=== PATIENT | male | born 1960 | race Caucasian/White ===

== ENCOUNTER 2016-06-04 21:08 | Inpatient (IN) | payer MEDICARE, OTHER ==
[~2016-06-04] VITALS: Ht 177.8 cm; Wt 118.9 kg
[2016-06-04] MEDS: IV NORMAL SALINE 1000ML BAG 1,000 ML IV SCH ×4 (01:30→23:53)
[2016-06-04] MEDS ORDERED: MORPHINE SULFATE 4 MG/ML DISP.SYRIN. IV/SQ PRN (21:45)
[2016-06-04] MEDS ORDERED: ACETAMINOPHEN 325 MG TABLET. PO ONE (21:45)
[2016-06-04] MEDS ORDERED: ONDANSETRON PF 4 MG/2 ML VIAL. IV ONE (21:45)
--- NOTE | 2016-06-04 22:18 | RAD ---
PROCEDURE Abdomen and pelvis CT without contrast. HISTORY Vomiting and fever. TECHNIQUE Computed tomographic images the and pelvis were obtained without contrast. One or more of the following individualized dose reduction techniques were utilized for this examination: 1. Automated exposure control; 2. Adjustment of the mA and/or kV according to patient size; 3. Use of iterative reconstruction technique. COMPARISON 10/12/2012 FINDINGS Evaluation of the lower thorax demonstrates left basilar atelectasis or scarring. There is no infiltrate or effusion. No focal hepatic lesion is seen. The gallbladder, pancreas, spleen and adrenal glands are unremarkable. There are several soft tissue nodules within the right renal fossa, the largest of which measures 1.3 cm. There is a 2.6 cm exophytic lesion within the lower pole of the left kidney, increased compared to the prior study. There is stable slight left perinephric stranding. There is also mild stranding within the root of the mesenteric, a nonspecific finding. The appendix is unremarkable. No abnormally thickened or dilated loop of bowel is seen. There is no suspicious osseous lesion. IMPRESSION 1. No acute abdominal or pelvic finding. 2. Stable prominent left kidney with slight perinephric stranding. There has been interval increase in a 2.6 cm exophytic lesion within the lower pole of the left kidney, the attenuation which is greater than simple fluid. This may be a complex cyst or solid lesion. Renal protocol CT or MRI or renal sonography is recommended for characterization. 3. Stable small soft tissue nodules within the right renal fossa, likely representing lymph nodes rather than hypoplastic renal parenchyma. The stability favors benignity. Electronically signed by: Nelly Tovar (Jun 04, 2016 22:17:31)
[2016-06-04 22:22] LABS: OBC FLU VALID
[2016-06-04 22:39] LABS: BASO # 0.1 x10^3/uL (0.0-0.2); BASO % 1 % (0-3); EOS % 1 % (0-3); HEMATOCRIT 33.8 % (39.0-53.0); HEMOGLOBIN 11.4 g/dL (13.0-17.5); LYMPH # 0.7 x10^3/uL (1.0-4.8); LYMPH % 5 % (24-48); MEAN CORPUSCULAR HEMOGLOBIN 31 pg (25-35); MEAN CORPUSCULAR HGB CONC 34 g/dL (31-37); MEAN CORPUSCULAR VOLUME 91 fL (79-100); MONO % 4 % (0-9); NEUT % 90 % (31-73); PLATELET COUNT 156 x10^3/uL (140-400); RED BLOOD COUNT 3.72 x10^6/uL (4.30-5.70); RED CELL DISTRIBUTION WIDTH 12.9 % (11.5-14.5)
--- NOTE | 2016-06-04 22:39 | PHYS DOC ---
Past Medical History Past Medical History: Arthritis, Diabetes-Type II, DVT, High Cholesterol, Hypertension Additional Past Medical Histor: GOUT,ONLY HAS 1 KIDNEY Past Surgical History: Knee Replacement Additional Information: nonsmoker Alcohol Use: None Drug Use: None Adult General Chief Complaint Chief Complaint: FLU SYMPTOM HPI HPI Patient is a 55 year old male who presents with fever and chills starting at 1800 tonight. He states that his temperature was 100.4F at home. He has not taken any antipyretic medication tonight. He has vomited 2-3 times and complains of periumbilical abdominal pain with urinary frequency. He has a productive cough, nasal congestion, and sore throat as well. He denies diarrhea , shortness of breath, or dysuria. His is currently hospitalized for chronic diarrhea. He denies any other known sick contacts. His PCP is Dr. Dheeraj Al. Review of Systems Review of Systems Constitutional: Reports fever and chills. Eyes: Denies change in visual acuity, redness, or eye pain. [] HENT: Denies ear pain. Reports nasal congestion and sore throat. Respiratory: Denies shortness of breath. Reports productive cough. Cardiovascular: Denies chest pain, palpitations or edema. [] GI: Denies bloody stools or diarrhea. Reports nausea, vomiting, and periumbilical pain. : Denies dysuria, hematuria. Reports urinary frequency. Musculoskeletal: Denies back pain or joint pain. [] Integument: Denies rash or skin lesions. [] Neurologic: Denies headache, focal weakness or sensory changes. [] Endocrine: Denies polyuria or polydipsia. [] Psych: Denies anxiety or depression. [] All systems reviewed and negative unless otherwise stated in the HPI. Current Medications Current Medications Current Medications Medications (Trade) Dose Ordered Sig/Bereket Start Time Stop Time Status Last Admin Dose Admin Acetaminophen (Tylenol) 650 mg 1X ONCE 06/04/16 21:45 06/04/16 21:46 DC 06/04/16 22:07 650 MG Morphine Sulfate 4 mg PRN Q15MIN PRN 06/04/16 21:45 06/05/16 21:44 06/04/16 22:07 4 MG Ondansetron HCl (Zofran) 4 mg 1X ONCE 06/04/16 21:45 06/04/16 21:46 DC 06/04/16 22:07 4 MG Sodium Chloride (Iv Sodium Chloride 0.9% 1000ml Bag) 1,000 ml @ 3,510 mls/hr Q18M 06/04/16 21:38 06/04/16 22:38 DC 06/04/16 23:53 3,510 MLS/HR Allergies Allergies Allergies Coded Allergies Type Severity Reaction Last Updated Verified allopurinol Allergy Severe SEVERE FEVER 06/04/16 Yes Zqxqlik-Rtv-Wlw Reductase Inhibitor Allergy Intermediate HIVES 06/04/16 Yes influenza virus vaccine, specific Allergy Intermediate Rash 06/04/16 No pneumococcal vaccine Allergy Intermediate Rash 06/04/16 No Physical Exam Physical Exam Constitutional: Well developed, well nourished, no acute distress. The patient is shivering with chills. HENT: Normocephalic, atraumatic, bilateral external ears normal, oropharynx moist, no oral exudates, nose normal. Bilateral TMs without erythema or bulging. There is no posterior pharyngeal erythema or tonsillar edema. Eyes: PERRLA, EOMI, conjunctiva normal, no discharge. [] Neck: Normal range of motion, no tenderness, supple, no stridor. No nuchal rigidity or meningeal signs. Cardiovascular: Tachycardia, regular, no murmur. Lungs & Thorax: Bilateral breath sounds clear to auscultation without wheezes, rales, or rhonchi. Abdomen: Bowel sounds normal, soft, periumbilical tenderness, no masses, no pulsatile masses. [] Skin: Warm, dry, no erythema, no rash. Grade 2 diabetic foot ulcers on the right first, second, and third toes as well as the left medial malleolus. Back: No tenderness, no CVA tenderness. [] Extremities: No tenderness, no cyanosis, no clubbing, ROM intact, no edema. 2+ pedal pulses bilaterally. Neurologic: Alert and oriented X 3, normal motor function, normal sensory function, no focal deficits noted. [] Psychologic: Affect normal, judgement normal, mood normal. [] Current Patient Data Vital Signs Vital Signs Date Time Temp Pulse Resp B/P Pulse Ox O2 Delivery O2 Flow Rate FiO2 06/04/16 23:27 118 151/63 96 Room Air 06/04/16 22:07 20 06/04/16 21:13 101.7 101.7 Lab Values Laboratory Tests Test 06/04/16 21:20 4/20/17 22:25 Influenza Type A Antigen Negative (NEGATIVE) Influenza Type B Antigen Negative (NEGATIVE) White Blood Count 15.0x10^3/uL (4.0-11.0) H Red Blood Count 3.72x10^6/uL (4.30-5.70) L Hemoglobin 11.4g/dL (13.0-17.5) L Hematocrit 33.8% (39.0-53.0) L Mean Corpuscular Volume 91fL (79-100) Mean Corpuscular Hemoglobin 31pg (25-35) Mean Corpuscular Hemoglobin Concent 34g/dL (31-37) Red Cell Distribution Width 12.9% (11.5-14.5) Platelet Count 156x10^3/uL (140-400) Neutrophils (%) (Auto) 90% (31-73) H Lymphocytes (%) (Auto) 5% (24-48) L Monocytes (%) (Auto) 4% (0-9) Eosinophils (%) (Auto) 1% (0-3) Basophils (%) (Auto) 1% (0-3) Neutrophils # (Auto) 13.5x10^3uL (1.8-7.7) H Lymphocytes # (Auto) 0.7x10^3/uL (1.0-4.8) L Monocytes # (Auto) 0.5x10^3/uL (0.0-1.1) Eosinophils # (Auto) 0.2x10^3/uL (0.0-0.7) Basophils # (Auto) 0.1x10^3/uL (0.0-0.2) Segmented Neutrophils % 79% (35-66) H Band Neutrophils % 14% (0-9) H Lymphocytes % 5% (24-48) L Monocytes % 1% (0-10) Eosinophils % 1% (0-5) Platelet Estimate Adequate (ADEQUATE) Sodium Level 129mmol/L (136-145) L Potassium Level 4.5mmol/L (3.5-5.1) Chloride Level 97mmol/L (98-107) L Carbon Dioxide Level 23mmol/L (21-32) Anion Gap 9 (6-14) Blood Urea Nitrogen 32mg/dL (8-26) H Creatinine 2.2mg/dL (0.7-1.3) H Estimated GFR (Cockcroft-Gault) 31.0 BUN/Creatinine Ratio 15 (6-20) Glucose Level 577mg/dL (70-99) *H Lactic Acid Level 1.9mmol/L (0.4-2.0) Calcium Level 9.1mg/dL (8.5-10.1) Total Bilirubin 0.6mg/dL (0.2-1.0) Aspartate Amino Transferase (AST) 15U/L (15-37) Alanine Aminotransferase (ALT) 27U/L (16-63) Alkaline Phosphatase 78U/L (46-116) Total Protein 7.0g/dL (6.4-8.2) Albumin 2.8g/dL (3.4-5.0) L Albumin/Globulin Ratio 0.7 (1.0-1.7) L Lipase 701U/L (73-393) H Laboratory Tests 06/04/16 22:25 Laboratory Tests 06/04/16 22:25 EKG EKG [] Radiology/Procedures Radiology/Procedures REASON: periumbilical pain, n/v, fever PROCEDURE: CT ABDOMEN PELVIS WO CONTRAST PROCEDURE Abdomen and pelvis CT without contrast. HISTORY COMPARISON 10/12/2012 FINDINGS Evaluation of the lower thorax demonstrates left basilar atelectasis or scarring. There is no infiltrate or effusion. No focal hepatic lesion is seen. The gallbladder, pancreas, spleen and adrenal glands are unremarkable. There are several soft tissue nodules within the right renal fossa, the largest of which measures 1.3 cm. There is a 2.6 cm exophytic lesion within the lower pole of the left kidney, increased compared to the prior study. There is stable slight left perinephric stranding. There is also mild stranding within the root of the mesenteric, a nonspecific finding. The appendix is unremarkable. No abnormally thickened or dilated loop of bowel is seen. There is no suspicious osseous lesion. IMPRESSION 1. No acute abdominal or pelvic finding. 2. Stable prominent left kidney with slight perinephric stranding. There has been interval increase in a 2.6 cm exophytic lesion within the lower pole of the left kidney, the attenuation which is greater than simple fluid. This may be a complex cyst or solid lesion. Renal protocol CT or MRI or renal sonography is recommended for characterization. 3. Stable small soft tissue nodules within the right renal fossa, likely representing lymph nodes rather than hypoplastic renal parenchyma. The stability favors benignity. Course & Med Decision Making Course & Med Decision Making Pertinent Labs and Imaging studies reviewed. (See chart for details) Patient is a 55-year-old diabetic male who presents with fever, vomiting, periumbilical pain, and upper respiratory symptoms starting this evening. Upon arrival to the emergency department, his temperature is 101.7F with pulse of 125. Blood pressure is stable as is oxygen saturation on room air. On exam, the patient's abdomen is soft and nonsurgical with periumbilical pain. Lungs are clear without rales or rhonchi. He was started on sepsis protocol fluids initially due to his fever and tachycardia. Chest x-ray does not show any focal infiltrates. CT of the abdomen and pelvis without contrast was performed due to patient's kidney function. There is some perinephric stranding around the patient's left kidney. Patient did have complaint of urinary frequency but was unable to produce a urine sample for the first 3 hours of his emergency department stay. He was started on Rocephin to cover for urinary infection. Laboratory evaluation reveals leukocytosis and significant hyperglycemia. His lipase is also elevated. There is no abnormality surrounding the pancreas on his CT scan. The patient initially refused EKG. I went to speak with the patient to explain the importance of obtaining an EKG due to his tachycardia and other comorbidities. While I was in the room discussing this and the need to keep the patient in the hospital, he shared that he has been self-treating some wounds on his right first, second, and third toes for one week. He has been using Silvadene cream and dressing the wounds himself. His socks were removed and the dressings were taken off. The patient has ulcerations to the right first, second , and third toes with mild surrounding cellulitis. He also has another ulcerated wound on the left medial malleolus. 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 He is unable to recall all of his medication allergies but does add NSAIDs, sulfa, and penicillin. He states that he has taken Keflex in the past without reaction. Dr. Posey was in the room as well for this conversation. The patient agreed to EKG and hospital admission. EKG showed a sinus tachycardia without acute ischemic changes. The patient was admitted to the hospitalist service by Dr. Romo. She agrees with plan for Rocephin and infectious disease consult. She also requests beginning the patient on insulin drip for his blood sugars. The patient remained stable while in the emergency department. He was admitted pending a urine specimen. Dragon Disclaimer Dragon Disclaimer This electronic medical record was generated, in whole or in part, using a voice recognition dictation system. Departure Departure Impression: Primary Impression: Sepsis Additional Impressions: Hyperglycemia Pancreatitis Diabetic foot ulcer Disposition: ADMITTED INPATIENT Admitting Physician: Missy Romo Condition: GUARDED Referrals: DHEERAJ AL Jr, MD (PCP) Problem Qualifiers Primary Impression: Sepsis Sepsis type: sepsis due to unspecified organism Qualified Code: A41.9 - Sepsis, unspecified organism Additional Impressions: Pancreatitis Chronicity: acute Pancreatitis type: unspecified pancreatitis type Acute pancreatitis complication: unspecified Qualified Code: K85.90 - Acute pancreatitis without necrosis or infection, unspecified Diabetic foot ulcer Diabetes mellitus type: type 2 Laterality: bilateral Qualified Code: E11.621 - Type 2 diabetes mellitus with foot ulcer ARTI CONRAD Jun 04, 2016 22:39
[2016-06-04 23:03] LABS: % EOS 1 % (0-5); PLT ESTIMATE ADEQUATE (ADEQUATE)
[2016-06-04 23:13] LABS: ALBUMIN 2.8 g/dL (3.4-5.0); ALBUMIN/GLOBULIN RATIO 0.7 (1.0-1.7); CALCIUM 9.1 mg/dL (8.5-10.1); CREATININE 2.2 mg/dL (0.7-1.3); POTASSIUM 4.5 mmol/L (3.5-5.1); TOTAL BILIRUBIN 0.6 mg/dL (0.2-1.0)
[2016-06-04] MEDS ORDERED: ACETAMINOPHEN 325 MG TABLET. PO PRN (23:45)
[2016-06-04] MEDS ORDERED: MORPHINE SULFATE 4 MG/ML DISP.SYRIN. IV PRN (23:45)
[2016-06-04] MEDS ORDERED: ONDANSETRON PF 4 MG/2 ML VIAL. IV PRN (23:45)
[2016-06-05] VITALS (9 sets, daily range): BP systolic 95–185; BP diastolic 42–101
[2016-06-05] MEDS ORDERED: INSULIN,REGULAR 150 UNIT DRIP 150 ML IV ONE
[2016-06-05 01:15] LABS: BILIRUBIN,URINE NEGATIVE (NEG); GLUCOSE,URINE >=1000 mg/dL (NEG); NITRITE,URINE NEGATIVE (NEG); PH,URINE 5.5; PROTEIN,URINE 30 mg/dL (NEG-TRACE); UROBILINOGEN,URINE 0.2 mg/dL (0.2 mg/dL)
[2016-06-05 01:22] LABS: BACTERIA,URINE FEW /HPF (0-FEW); RBC,URINE OCC /HPF (0-2); SQUAMOUS EPITHELIAL CELL,UR FEW /LPF; WBC,URINE OCC /HPF (0-4)
--- NOTE | 2016-06-05 06:40 | EKG ---
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
--- NOTE | 2016-06-05 07:44 | RAD ---
Indication fever and cough. Nausea and vomiting. A single view of the chest was obtained. Comparison is made to an examination 10/09/2012. Heart size is within normal limits. The pulmonary vasculature is normal. The lungs are clear. There is no pleural fluid or pneumothorax. The visualized bony structures appear grossly intact. IMPRESSION: No acute or focal process seen in the chest.
[2016-06-05] MEDS ORDERED: DEXTROSE 50% 25 GM / 50ML DISP.SYRIN. IV PRN (08:15)
[2016-06-05] MEDS ORDERED: LEVOTHYROXINE 100 MCG TABLET PO SCH (08:15)
--- NOTE | 2016-06-05 08:26 | PDOC1 ---
History and Physical Date of Admission Date of Admission DATE: 06/05/16 TIME: 08:25 Identification/Chief Complaint Chief Complaint fever Problems: Source Source: Chart review, Patient History of Present Illness History of Present Illness Mr. Schwartz, is a 55 year old male, his has been hospitalized her for the past 10 days. He had felt well until last night, and then had fever and chills starting at 6 last night. T elevated at home, no cough or dyspnea or dysuria. He has small foot lesions that he has seen Dr. Mae for, and had seemed to be healing. He is lethargic and tired this AM, some confusion on his home meds, med doses he is unsure of. He complained of severe abd pain last night in the ER, has no pain this AM, no stools. His is currently hospitalized for chronic diarrhea. His PCP is Dr. Dheeraj Blair. Past Medical History Cardiovascular: HTN Musculoskeletal: low back pain Endocrine: Diabetes Family History Family History: Heart Disease Social History Smoke: No ALCOHOL: rare Drugs: None Current Problem List Problem List Problems Medical Problems: (1) Diabetic foot ulcer Status: Acute (2) Hyperglycemia Status: Acute (3) Pancreatitis Status: Acute (4) Sepsis Status: Acute Problems: Current Medications Current Medications Current Medications Sodium Chloride (Iv Sodium Chloride 0.9% 1000ml Bag) 1,000 ml @ 3,510 mls/hr Q18M IV Last administered on 06/04/16 03:55; Start 06/04/16 at 21:38; Stop at 22:38; Status DC Morphine Sulfate 4 mg PRN Q15MIN PRN IV/SQ PAIN GREATER THAN 3/10 Last administered on 06/04/16 22:07; Start 06/04/16 at 21:45; Stop 06/05/16 at 21:44 Ondansetron HCl (Zofran) 4 mg 1X ONCE IV Last administered on 06/04/16 22:07 ; Start 06/04/16 at 21:45; Stop 06/04/16 at 21:46; Status DC Acetaminophen (Tylenol) 650 mg 1X ONCE PO Last administered on 06/04/16 22:07 ; Start 06/04/16 at 21:45; Stop 06/04/16 at 21:46; Status DC Ondansetron HCl (Zofran) 4 mg PRN Q8HRS PRN IV NAUSEA/VOMITING; Start 06/04/16 at 23:45; Stop 06/05/16 at 23:44 Morphine Sulfate 4 mg 4 mg PRN Q2HR PRN IV PAIN Last administered on 06/05/16 05:35; Start 06/04/16 at 23:45; Stop 06/05/16 at 23:44 Sodium Chloride (Iv Sodium Chloride 0.9% 1000ml Bag) 1,000 ml @ 125 mls/hr Q8H IV Last administered on 06/04/16 01:30; Start 06/04/16 at 23:45; Stop at 23:44 Acetaminophen 650 mg 650 mg PRN Q4HRS PRN PO FEVER Last administered on 02:24; Start 06/04/16 at 23:45; Stop 06/05/16 at 23:44 Insulin Human Regular 150 ml @ 0 mls/hr 1X ONCE IV Last administered on 02:46; Start 06/05/16 at 00:00; Stop 06/05/16 at 00:01; Status DC Ceftriaxone Sodium/Sodium Chloride (Rocephin/Iv Sodium Chloride 0.9% 50ml) 50 ml @ 100 mls/hr Q24H IV Last administered on 06/05/16 00:00; Start 06/05/16 at 00:00 Allergies Allergies: Coded Allergies: allopurinol (Verified Allergy, Severe, SEVERE FEVER, 06/04/16) [id number] Reductase Inhibitor (Verified Allergy, Intermediate, HIVES , 06/04/16) influenza virus vaccine, specific (Unverified Allergy, Intermediate, Rash , 06/04/16) pneumococcal vaccine (Unverified Allergy, Intermediate, Rash, 06/04/16) ROS General: YES: Appetite, Chills, Fatigue, Malaise, No: Night Sweats, Other PSYCHOLOGICAL ROS: No: Anxiety, Behavioral Disorder, Concentration difficultie , Decreased libido, Depression, Disorientation, Hallucinations, Hostility, Irritablity, Memory difficulties, Mood Swings, Obsessive thoughts, Other, Physical abuse, Sexual abuse, Sleep disturbances, Suicidal ideation Eyes: No Blurry vision, No Decreased vision, No Double vision, No Dry eyes, No Excessive tearing, No Eye Pain, No Itchy Eyes, No Loss of vision, No Other, No Photophobia, No Scotomata, No Uses contacts, No Uses glasses HEENT: YES: Heacaches, No: Epistaxis, Hearing change, Nasal congestion, Nasal discharge, Oral lesions, Other, Sinus pain, Sneezing, Snoring, Sore Throat, Tinnitus, Vertigo, Visual Changes, Vocal changes Respiratory: No: Cough, Hemoptysis, Orthopnea, Other, Pleuritic Pain, SOB with excertion, Shortness of breath, Sputum Changes, Stridor, Tachypnea, Wheezing Cardiovascular: No Chest Pain, No Edema, No Lt Headedness, No Orthopnea, No Other, No Palpitations, No Paroxysmal Noc. Dyspnea Gastrointestinal: Yes Abdominal Pain, No Constipation, No Diarrhea, No Hematochezia, No Melena, No Nausea, No Other , No Vomiting Genitourinary: No , No , No , No , No , No , No , No Discharge, No Dysuria, No Flank Pain, No Frequency, No Hematuria, No Incontinence, No Other, No Pain, No Retention, No Urgency Musculoskeletal: No Gait Disturbance, No Joint Pain, No Joint Stiffness, No Joint Swelling, No Muscle Pain, No Muscular Weakness, No Other, No Pain In:, No Swelling In: Neurological: No Behavorial Changes, No Bowel/Bladder ControlChng, No Confusion , No Dizziness, No Gait Disturbance, No Headaches, No Impaired Coord/balance, No Memory Loss, No Numbness/Tingling, No Other, No Seizures, No Speech Problems , No Tremors, No Visual Changes, No Weakness Skin: No Acne, No Dry Skin, No Eczema, No Hair Changes, No Lumps, No Mole Changes, No Mottling, No Nail Changes, No Other, No Pruritus, No Rash, No Skin Lesion Changes Physical Exam General: Alert, Oriented X3, Cooperative, mild distress HEENT: Atraumatic, PERRLA, EOMI, Mucous membr. moist/pink Lungs: Clear to auscultation, Normal air movement Heart: S1S2, no murmurs Abdomen: Normal bowel sounds, Soft Rectal Exam: not examined Extremities: No cyanosis, No edema Skin: Other (small 1.5 cm plantar lefion left foot, calloused, ) Neuro: Normal speech, Normal tone, Sensation intact, Cranial nerves 3-12 NL Vitals Vitals Vital Signs Date Time Temp Pulse Resp B/P Pulse Ox O2 Delivery O2 Flow Rate FiO2 06/05/16 06:15 90 06/05/16 05:35 20 Room Air 06/05/16 02:39 100.9 122 135/71 100.9 Labs Labs Laboratory Tests Test 06/04/16 21:20 06/04/16 22:25 06/05/16 00:55 06/05/16 01:30 Influenza Type A Antigen Negative (NEGATIVE) Influenza Type B Antigen Negative (NEGATIVE) White Blood Count 15.0x10^3/uL (4.0-11.0) Red Blood Count 3.72x10^6/uL (4.30-5.70) Hemoglobin 11.4g/dL (13.0-17.5) Hematocrit 33.8% (39.0-53.0) Mean Corpuscular Volume 91fL (79-100) Mean Corpuscular Hemoglobin 31pg (25-35) Mean Corpuscular Hemoglobin Concent 34g/dL (31-37) Red Cell Distribution Width 12.9% (11.5-14.5) Platelet Count 156x10^3/uL (140-400) Neutrophils (%) (Auto) 90% (31-73) Lymphocytes (%) (Auto) 5% (24-48) Monocytes (%) (Auto) 4% (0-9) Eosinophils (%) (Auto) 1% (0-3) Basophils (%) (Auto) 1% (0-3) Neutrophils # (Auto) 13.5x10^3uL (1.8-7.7) Lymphocytes # (Auto) 0.7x10^3/uL (1.0-4.8) Monocytes # (Auto) 0.5x10^3/uL (0.0-1.1) Eosinophils # (Auto) 0.2x10^3/uL (0.0-0.7) Basophils # (Auto) 0.1x10^3/uL (0.0-0.2) Segmented Neutrophils % 79% (35-66) Band Neutrophils % 14% (0-9) Lymphocytes % 5% (24-48) Monocytes % 1% (0-10) Eosinophils % 1% (0-5) Platelet Estimate Adequate (ADEQUATE) Sodium Level 129mmol/L (136-145) Potassium Level 4.5mmol/L (3.5-5.1) Chloride Level 97mmol/L (98-107) Carbon Dioxide Level 23mmol/L (21-32) Anion Gap 9 (6-14) Blood Urea Nitrogen 32mg/dL (8-26) Creatinine 2.2mg/dL (0.7-1.3) Estimated GFR (Cockcroft-Gault) 31.0 BUN/Creatinine Ratio 15 (6-20) Glucose Level 577mg/dL (70-99) Lactic Acid Level 1.9mmol/L (0.4-2.0) 1.9mmol/L (0.4-2.0) Calcium Level 9.1mg/dL (8.5-10.1) Total Bilirubin 0.6mg/dL (0.2-1.0) Aspartate Amino Transf (AST/SGOT) 15U/L (15-37) Alanine Aminotransferase (ALT/SGPT) 27U/L (16-63) Alkaline Phosphatase 78U/L (46-116) Total Protein 7.0g/dL (6.4-8.2) Albumin 2.8g/dL (3.4-5.0) Albumin/Globulin Ratio 0.7 (1.0-1.7) Lipase 701U/L (73-393) Urine Collection Type Unknown Urine Color Yellow Urine Clarity Clear Urine pH 5.5 Urine Specific [place] 1.025 Urine Protein 30mg/dL (NEG-TRACE) Urine Glucose (UA) >=1000mg/dL (NEG) Urine Ketones (Stick) Negativemg/dL (NEG) Urine Blood Negative (NEG) Urine Nitrite Negative (NEG) Urine Bilirubin Negative (NEG) Urine Urobilinogen Dipstick 0.2mg/dL (0.2 mg/dL) Urine Leukocyte Esterase Negative (NEG) Urine RBC Occ/HPF (0-2) Urine WBC Occ/HPF (0-4) Urine Squamous Epithelial Cells Few/LPF Urine Bacteria Few/HPF (0-FEW) Test 06/05/16 01:38 06/05/16 03:42 06/05/16 04:50 06/05/16 05:53 Glucose (Fingerstick) 461mg/dL (70-99) 424mg/dL (70-99) 369mg/dL (70-99) 292mg/dL (70-99) Test 06/05/16 06:58 06/05/16 08:02 Glucose (Fingerstick) 265mg/dL (70-99) 214mg/dL (70-99) Laboratory Tests Test 06/04/16 21:20 06/04/16 22:25 06/05/16 00:55 06/05/16 01:30 Influenza Type A Antigen Negative (NEGATIVE) Influenza Type B Antigen Negative (NEGATIVE) White Blood Count 15.0x10^3/uL (4.0-11.0) Red Blood Count 3.72x10^6/uL (4.30-5.70) Hemoglobin 11.4g/dL (13.0-17.5) Hematocrit 33.8% (39.0-53.0) Mean Corpuscular Volume 91fL (79-100) Mean Corpuscular Hemoglobin 31pg (25-35) Mean Corpuscular Hemoglobin Concent 34g/dL (31-37) Red Cell Distribution Width 12.9% (11.5-14.5) Platelet Count 156x10^3/uL (140-400) Neutrophils (%) (Auto) 90% (31-73) Lymphocytes (%) (Auto) 5% (24-48) Monocytes (%) (Auto) 4% (0-9) Eosinophils (%) (Auto) 1% (0-3) Basophils (%) (Auto) 1% (0-3) Neutrophils # (Auto) 13.5x10^3uL (1.8-7.7) Lymphocytes # (Auto) 0.7x10^3/uL (1.0-4.8) Monocytes # (Auto) 0.5x10^3/uL (0.0-1.1) Eosinophils # (Auto) 0.2x10^3/uL (0.0-0.7) Basophils # (Auto) 0.1x10^3/uL (0.0-0.2) Segmented Neutrophils % 79% (35-66) Band Neutrophils % 14% (0-9) Lymphocytes % 5% (24-48) Monocytes % 1% (0-10) Eosinophils % 1% (0-5) Platelet Estimate Adequate (ADEQUATE) Sodium Level 129mmol/L (136-145) Potassium Level 4.5mmol/L (3.5-5.1) Chloride Level 97mmol/L (98-107) Carbon Dioxide Level 23mmol/L (21-32) Anion Gap 9 (6-14) Blood Urea Nitrogen 32mg/dL (8-26) Creatinine 2.2mg/dL (0.7-1.3) Estimated GFR (Cockcroft-Gault) 31.0 BUN/Creatinine Ratio 15 (6-20) Glucose Level 577mg/dL (70-99) Lactic Acid Level 1.9mmol/L (0.4-2.0) 1.9mmol/L (0.4-2.0) Calcium Level 9.1mg/dL (8.5-10.1) Total Bilirubin 0.6mg/dL (0.2-1.0) Aspartate Amino Transf (AST/SGOT) 15U/L (15-37) Alanine Aminotransferase (ALT/SGPT) 27U/L (16-63) Alkaline Phosphatase 78U/L (46-116) Total Protein 7.0g/dL (6.4-8.2) Albumin 2.8g/dL (3.4-5.0) Albumin/Globulin Ratio 0.7 (1.0-1.7) Lipase 701U/L (73-393) Urine Collection Type Unknown Urine Color Yellow Urine Clarity Clear Urine pH 5.5 Urine Specific [place] 1.025 Urine Protein 30mg/dL (NEG-TRACE) Urine Glucose (UA) >=1000mg/dL (NEG) Urine Ketones (Stick) Negativemg/dL (NEG) Urine Blood Negative (NEG) Urine Nitrite Negative (NEG) Urine Bilirubin Negative (NEG) Urine Urobilinogen Dipstick 0.2mg/dL (0.2 mg/dL) Urine Leukocyte Esterase Negative (NEG) Urine RBC Occ/HPF (0-2) Urine WBC Occ/HPF (0-4) Urine Squamous Epithelial Cells Few/LPF Urine Bacteria Few/HPF (0-FEW) Test 06/05/16 01:38 06/05/16 03:42 06/05/16 04:50 06/05/16 05:53 Glucose (Fingerstick) 461mg/dL (70-99) 424mg/dL (70-99) 369mg/dL (70-99) 292mg/dL (70-99) Test 06/05/16 06:58 06/05/16 08:02 Glucose (Fingerstick) 265mg/dL (70-99) 214mg/dL (70-99) VTE Prophylaxis Ordered VTE Prophylaxis Devices: No VTE Pharmacological Prophylaxi: Yes Assessment/Plan Assessment/Plan fever, tachycardia, tachypnea, leukocytosis, CXR clear, UA clear, small foot lesion on plantar aspect that he reports is improved, no open ulcer rocephin given, change to zosyn, consult ID [id number], hyperosmolar not-ketotic hypovolumic hyponatremia Acute renal failure, possible vasomotor, hold ARB, consult renal, IV fluid moderate malnutrition by serum albumin obesity, BMI 39 htn lipids SHEREEN KAY MD Jun 05, 2016 08:26
[2016-06-05] MEDS: INSULIN ASPART 300 UNITS/3 ML INSULN.PEN SQ SCH ×5 (08:30→17:36)
--- NOTE | 2016-06-05 08:40 | ACF ---
Admit Criteria Forms Admit Criteria Forms Admit Criteria Forms SEPSIS and OTHER FEBRILE ILLNESS, W/O FOCAL INFECTION Clinical Indications for Admission to Inpatient Care ( Place 'X' for any and all applicable criteria): Admission is indicated for ANY ONE of the following (1)(2)(3)(4): [ ] I. Bacteremia [ ]II. Suspected or identified specific infection requiring hospitalization (eg, meningitis, endocarditis) [ ]III. Hemodynamic instability [ ]IV. Altered mental status [ ]V. Failure or unavailability of outpatient antimicrobial treatment [ ]. Hypoxemia [ ]VII. Seizures [ ]VIII. High-risk febrile neutropenia [ ]IX. Need for parenteral antibiotic in patient who is likely to abuse vascular access device (eg, injection drug user) [A](7) [ ]X. Temperature greater than 104.9 degrees F (40.5 degrees C) (oral) [X]XI. Inpatient admission required rather than observation care because of ANY ONE of the following: [X]1) Specific infection identified that is too severe for outpatient treatment or observation care trial [ ]2) Metabolic disorder (eg, hypoglycemia, hyperglycemia, metabolic acidosis) that is severe or persistent [ ]3) Temperature greater than 103.1 degrees F (39.5 degrees C) ( oral) that is not responsive to observation care treatment [ ]4) IV fluid to replace significant ongoing (eg, for over 24 hours) losses (> 3 L/m2 per day) [ ]5) Supplemental oxygen or respiratory treatments for over 24 hours that is performable only in acute inpatient setting [ ]6) Parenteral nutrition regimen need that must be implemented on inpatient basis [ ]7) Strict or protective (eg, laminar flow) isolation [ ]8) Other condition, treatment or monitoring requiring inpatient admission Extended stay beyond goal length of stay may be needed for(1)(3) [ ]a) Sepsis or septic shock(22) [ ]b) Positive blood cultures [ ]c) Insufficient oral intake [ ]d) High-risk febrile neutropenia(29)(30) [ ]e) Continued fever and clinical instability [ ]f) Clinically active comorbid illness (e.g,heart failure, renal failure , diabetes) The original [employer] content created by [email or web address] has been revised. The portions of the content which have been revised are identified through the use of italic text or in bold, and [facility] has neither reviewed nor approved the modified material. All other unmodified content is copyright [facility]. Please see references footnoted in the original [facility] edition 2016 LONNIE STEPHENS Jun 05, 2016 08:40
[2016-06-05] MEDS: INSULIN DETEMIR 300 UNITS/3 ML INSULN.PEN. SQ SCH (08:59)
[2016-06-05 09:15] LABS: GFR 21.7; POTASSIUM 4.7 mmol/L (3.5-5.1)
[2016-06-05 09:29] LABS: BASO % 0 % (0-3); EOS % 0 % (0-3); HEMATOCRIT 33.1 % (39.0-53.0); HEMOGLOBIN 11.2 g/dL (13.0-17.5); LYMPH # 0.5 x10^3/uL (1.0-4.8); LYMPH % 2 % (24-48); MEAN CORPUSCULAR HEMOGLOBIN 31 pg (25-35); MEAN CORPUSCULAR HGB CONC 34 g/dL (31-37); MEAN CORPUSCULAR VOLUME 90 fL (79-100); MONO % 5 % (0-9); NEUT % 93 % (31-73); PLATELET COUNT 170 x10^3/uL (140-400); RED BLOOD COUNT 3.67 x10^6/uL (4.30-5.70); RED CELL DISTRIBUTION WIDTH 12.8 % (11.5-14.5); WHITE BLOOD COUNT 24.9 x10^3/uL (4.0-11.0)
[2016-06-05 09:32] LABS: INR 2.5 (0.8-1.1); PROTHROMBIN TIME PATIENT 25.5 SEC (11.7-14.0)
--- NOTE | 2016-06-05 09:57 | PDOC ---
Infectious Disease Note ROS ROS GEN: Denies fevers, chills, sweats HEENT: Denies blurred vision, sore throat CV: Denies chest pain RESP: Denies shortness of air, cough GI: Denies n/v/d NEURO: Denies confusion, dizziness MSK: Denies weakness, joint pain/swelling Vital Sign Vital Signs Vital Signs Date Time Temp Pulse Resp B/P Pulse Ox O2 Delivery O2 Flow Rate FiO2 06/05/16 09:16 99.9 108 20 108/61 95 Room Air 99.9 Physical Exam PHYSICAL EXAM GENERAL: NAD, Alert HEENT: PERRL, OC/OP NECK: Supple, no JVD, no LN LUNGS: Clear HEART: S1S2, no gallop, no murmur ABD: Soft, NT, no organomegaly, no rebound EXT: No edema, no cyanosis JOINERY SETTER OUT: Alert, 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, no focal neurologic deficit SKIN: No rash IV: ok Labs Lab Laboratory Tests Test 06/04/16 21:20 06/04/16 22:25 06/05/16 00:55 06/05/16 01:30 Influenza Type A Antigen Negative (NEGATIVE) Influenza Type B Antigen Negative (NEGATIVE) White Blood Count 15.0x10^3/uL (4.0-11.0) Red Blood Count 3.72x10^6/uL (4.30-5.70) Hemoglobin 11.4g/dL (13.0-17.5) Hematocrit 33.8% (39.0-53.0) Mean Corpuscular Volume 91fL (79-100) Mean Corpuscular Hemoglobin 31pg (25-35) Mean Corpuscular Hemoglobin Concent 34g/dL (31-37) Red Cell Distribution Width 12.9% (11.5-14.5) Platelet Count 156x10^3/uL (140-400) Neutrophils (%) (Auto) 90% (31-73) Lymphocytes (%) (Auto) 5% (24-48) Monocytes (%) (Auto) 4% (0-9) Eosinophils (%) (Auto) 1% (0-3) Basophils (%) (Auto) 1% (0-3) Neutrophils # (Auto) 13.5x10^3uL (1.8-7.7) Lymphocytes # (Auto) 0.7x10^3/uL (1.0-4.8) Monocytes # (Auto) 0.5x10^3/uL (0.0-1.1) Eosinophils # (Auto) 0.2x10^3/uL (0.0-0.7) Basophils # (Auto) 0.1x10^3/uL (0.0-0.2) Segmented Neutrophils % 79% (35-66) Band Neutrophils % 14% (0-9) Lymphocytes % 5% (24-48) Monocytes % 1% (0-10) Eosinophils % 1% (0-5) Platelet Estimate Adequate (ADEQUATE) Sodium Level 129mmol/L (136-145) Potassium Level 4.5mmol/L (3.5-5.1) Chloride Level 97mmol/L (98-107) Carbon Dioxide Level 23mmol/L (21-32) Anion Gap 9 (6-14) Blood Urea Nitrogen 32mg/dL (8-26) Creatinine 2.2mg/dL (0.7-1.3) Estimated GFR (Cockcroft-Gault) 31.0 BUN/Creatinine Ratio 15 (6-20) Glucose Level 577mg/dL (70-99) Lactic Acid Level 1.9mmol/L (0.4-2.0) 1.9mmol/L (0.4-2.0) Calcium Level 9.1mg/dL (8.5-10.1) Total Bilirubin 0.6mg/dL (0.2-1.0) Aspartate Amino Transf (AST/SGOT) 15U/L (15-37) Alanine Aminotransferase (ALT/SGPT) 27U/L (16-63) Alkaline Phosphatase 78U/L (46-116) Total Protein 7.0g/dL (6.4-8.2) Albumin 2.8g/dL (3.4-5.0) Albumin/Globulin Ratio 0.7 (1.0-1.7) Lipase 701U/L (73-393) Urine Collection Type Unknown Urine Color Yellow Urine Clarity Clear Urine pH 5.5 Urine Specific [place] 1.025 Urine Protein 30mg/dL (NEG-TRACE) Urine Glucose (UA) >=1000mg/dL (NEG) Urine Ketones (Stick) Negativemg/dL (NEG) Urine Blood Negative (NEG) Urine Nitrite Negative (NEG) Urine Bilirubin Negative (NEG) Urine Urobilinogen Dipstick 0.2mg/dL (0.2 mg/dL) Urine Leukocyte Esterase Negative (NEG) Urine RBC Occ/HPF (0-2) Urine WBC Occ/HPF (0-4) Urine Squamous Epithelial Cells Few/LPF Urine Bacteria Few/HPF (0-FEW) Test 06/05/16 01:38 06/05/16 03:42 06/05/16 04:50 06/05/16 05:53 Glucose (Fingerstick) 461mg/dL (70-99) 424mg/dL (70-99) 369mg/dL (70-99) 292mg/dL (70-99) Test 06/05/16 06:58 06/05/16 08:02 06/05/16 08:40 06/05/16 09:20 Glucose (Fingerstick) 265mg/dL (70-99) 214mg/dL (70-99) 175mg/dL (70-99) White Blood Count 24.9x10^3/uL (4.0-11.0) Red Blood Count 3.67x10^6/uL (4.30-5.70) Hemoglobin 11.2g/dL (13.0-17.5) Hematocrit 33.1% (39.0-53.0) Mean Corpuscular Volume 90fL (79-100) Mean Corpuscular Hemoglobin 31pg (25-35) Mean Corpuscular Hemoglobin Concent 34g/dL (31-37) Red Cell Distribution Width 12.8% (11.5-14.5) Platelet Count 170x10^3/uL (140-400) Neutrophils (%) (Auto) 93% (31-73) Lymphocytes (%) (Auto) 2% (24-48) Monocytes (%) (Auto) 5% (0-9) Eosinophils (%) (Auto) 0% (0-3) Basophils (%) (Auto) 0% (0-3) Neutrophils # (Auto) 23.2x10^3uL (1.8-7.7) Lymphocytes # (Auto) 0.5x10^3/uL (1.0-4.8) Monocytes # (Auto) 1.1x10^3/uL (0.0-1.1) Eosinophils # (Auto) 0.0x10^3/uL (0.0-0.7) Basophils # (Auto) 0.0x10^3/uL (0.0-0.2) Prothrombin Time 25.5SEC (11.7-14.0) Prothromb Time International Ratio 2.5 (0.8-1.1) Sodium Level 139mmol/L (136-145) Potassium Level 4.7mmol/L (3.5-5.1) Chloride Level 106mmol/L (98-107) Carbon Dioxide Level 26mmol/L (21-32) Anion Gap 7 (6-14) Blood Urea Nitrogen 33mg/dL (8-26) Creatinine 3.0mg/dL (0.7-1.3) Estimated GFR (Cockcroft-Gault) 21.7 Glucose Level 178mg/dL (70-99) Calcium Level 9.0mg/dL (8.5-10.1) Objective Assessment Strep sepsis - POA 06/04 Fever LLE cellulitis Left 5th toe ? abscess and med ankle wound Right 2 and 3 toe infections ? PAD EVON on CKD single kidney. followed by Dr. Masters Leukocytosis Plan Plan of Care Change to Zosyn/Fluconazole Dapto times one F/u labs and cults Arterial US LE Dr Mae and Dr. Tito Carrasquillo Thank you # [phone] VINCE LEBLANC MD Jun 05, 2016 09:57
[2016-06-05] MEDS: FLUCONAZOLE 100 MG TABLET. PO SCH (10:12)
[2016-06-05] MEDS: HEPARIN PF for SUB-Q USE 5,000 UNIT/0.5 ML VIAL. SQ SCH ×2 (10:17→21:32)
[2016-06-05] MEDS ORDERED: DAPTOMYCIN IV ONE (10:30)
[2016-06-05] MEDS ORDERED: NORMAL SALINE IV ONE (10:30)
--- NOTE | 2016-06-05 10:58 | PDOC2 ---
CONSULT Date of Consult Date of Consult DATE: 06/05/16 TIME: 10:50 Reason for Consult Reason for Consult: EVON/ CKD III Referring Physician Referring Physician: dr Mosquera Identification/Chief Complaint Chief Complaint Fevers Problems: Source Source: Chart review, Patient History of Present Illness Reason for Visit: as dictated Past Medical History Cardiovascular: HTN Musculoskeletal: low back pain Endocrine: Diabetes Family History Family History: Heart Disease Social History No ALCOHOL: rare Drugs: None Lives: with Family Current Problem List Problem List Problems Medical Problems: (1) Diabetic foot ulcer Status: Acute (2) Hyperglycemia Status: Acute (3) Pancreatitis Status: Acute (4) Sepsis Status: Acute Current Medications Current Medications Current Medications Sodium Chloride (Iv Sodium Chloride 0.9% 1000ml Bag) 1,000 ml @ 3,510 mls/hr Q18M IV Last administered on 06/04/16 03:55; Start 06/04/16 at 21:38; Stop at 22:38; Status DC Morphine Sulfate 4 mg PRN Q15MIN PRN IV/SQ PAIN GREATER THAN 3/10 Last administered on 06/04/16 22:07; Start 06/04/16 at 21:45; Stop 06/05/16 at 21:44 Ondansetron HCl (Zofran) 4 mg 1X ONCE IV Last administered on 06/04/16 22:07 ; Start 06/04/16 at 21:45; Stop 06/04/16 at 21:46; Status DC Acetaminophen (Tylenol) 650 mg 1X ONCE PO Last administered on 06/04/16 22:07 ; Start 06/04/16 at 21:45; Stop 06/04/16 at 21:46; Status DC Ondansetron HCl (Zofran) 4 mg PRN Q8HRS PRN IV NAUSEA/VOMITING; Start 06/04/16 at 23:45; Stop 06/05/16 at 23:44 Morphine Sulfate 4 mg 4 mg PRN Q2HR PRN IV PAIN Last administered on 06/05/16 05:35; Start 06/04/16 at 23:45; Stop 06/05/16 at 23:44 Sodium Chloride (Iv Sodium Chloride 0.9% 1000ml Bag) 1,000 ml @ 125 mls/hr Q8H IV Last administered on 06/04/16 01:30; Start 06/04/16 at 23:45; Stop at 23:44 Acetaminophen 650 mg 650 mg PRN Q4HRS PRN PO FEVER Last administered on 02:24; Start 06/04/16 at 23:45; Stop 06/05/16 at 23:44 Insulin Human Regular 150 ml @ 0 mls/hr 1X ONCE IV Last administered on 02:46; Start 06/05/16 at 00:00; Stop 06/05/16 at 08:26; Status DC Ceftriaxone Sodium/Sodium Chloride (Rocephin/Iv Sodium Chloride 0.9% 50ml) 50 ml @ 100 mls/hr Q24H IV Last administered on 06/05/16 00:00; Start 06/05/16 at 00:00; Stop 06/05/16 at 09:43; Status DC Levothyroxine Sodium (Synthroid) 100 mcg DAILY07 PO Last administered on 08:54; Start 06/05/16 at 08:15 Warfarin Sodium (Coumadin Per Pharmacy) 1 each PRN DAILY PRN MC SEE COMMENTS; Start 06/05/16 at 08:15 Insulin Detemir (Levemir) 25 units QHS SQ ; Start 06/05/16 at 21:00 Insulin Detemir (Levemir) 40 units DAILY08 SQ Last administered on 06/05/16 08 :59; Start 06/05/16 at 08:15 Insulin Aspart (Novolog) 30 units TIDAC SQ ; Start 06/05/16 at 08:30 Insulin Aspart (Novolog) 0-9 UNITS TIDWMEALS SQ ; Start 06/05/16 at 12:00 Dextrose (Dextrose 50%-Water Syringe) 12.5 gm PRN Q15MIN PRN IV SEE COMMENTS; Start 06/05/16 at 08:15 Heparin Sodium (Porcine) 5000 unit 5,000 unit Q12HR SQ Last administered on 10:17; Start 06/05/16 at 09:00 Piperacillin Sod/ Tazobactam Sod 2.25 gm/Sodium Chloride 50 ml @ 100 mls/hr Q6HRS IV ; Start 06/05/16 at 12:00 Daptomycin/Sodium Chloride (Cubicin/Iv Sodium Chloride 0.9% 50ml) 50 ml @ 100 mls/hr ONCE ONCE IV Last administered on 06/05/16 10:34; Start 06/05/16 at 10 :30; Stop 06/05/16 at 10:59 Fluconazole (Diflucan) 100 mg DAILY PO Last administered on 06/05/16 10:12; Start 06/05/16 at 10:00 Allergies Allergies: Coded Allergies: allopurinol (Verified Allergy, Severe, SEVERE FEVER, 06/04/16) [id number] Reductase Inhibitor (Verified Allergy, Intermediate, HIVES , 06/04/16) influenza virus vaccine, specific (Unverified Allergy, Intermediate, Rash , 06/04/16) pneumococcal vaccine (Unverified Allergy, Intermediate, Rash, 06/04/16) ROS Review of System GEN: + Fevers + Chills EYES: no new Visual Complaints ENT: no EN Drainage no Hearing deficiets CVS: no Orthopnea no CP RESP: no SOB no FERNÁNDEZ GI: + Nausea + Vomiting : + Dysuria occ Urgency HEME: no easy bruising no Palp Ly Nodes NEURO no Focal Weakness no Sz PSYCH: no Suicidal Ideation no Depression SKIN: no Rashes ENDO: no Polyuria or Polydipsia no Hot/Cold Intolerance MU SK: + Arthraigia + Myalgia Physical Exam Physical Exam General Appearance: Awake Alert Oriented x 3 In no Distress - Obese Eyes: VIsion Unchanged Conjunctiva Normal EN: No EN Drainage Mucous Memb. moist Neck: no JVD no JVP Supple no Thyromegaly CVS: S1 S2 + Murmur No Gallop No Rub none Edema Resp: no Rales no Rhonchi no Acc. Muscle use GI: BAS +ve NO Bruit Non Tender Non Distended - obese : no CVA tenderness; no Suprapubic Tenderness SKIN: no Rashes Breast Exam deferred; Ch Skin changes on lower ext Mu.Sk: Adequate ROM no Muscle Atrophy Heme: Unable to palpate Obvious LAD no palp Splenomegaly NEURO: Good Strength and Tone Cranial Nerves II - XII grossly intact Psych: no Depressed no Active hallucination Vital Signs Vital Signs Date Time Temp Pulse Resp B/P Pulse Ox O2 Delivery O2 Flow Rate FiO2 06/05/16 09:16 99.9 108 20 108/61 95 Room Air 99.9 Assessment & Plan ARF - ? VMN from fever/ dehydration/ Glycosuria vs ? Pyelo.: Current FLuid and E -lyte status does not necessitate emergent need for Dialysis. Will re-evaluate for Dialysis in am CKD III - baseline creat is 1.7 as of Feb 2016. Single functioning [place] Anemia: check Iron; Epogen as needed. HTN: Current BP meds reviewed. See orders for changes. SIRS/ Sepsis - ? Source Vol Dpeltion - IVF as ordered Discussed Plan of Care and prognosis etc. at length with Dr Mosquera Labs Labs Laboratory Tests Test 06/04/16 21:20 06/04/16 22:25 06/05/16 00:55 06/05/16 01:30 Influenza Type A Antigen Negative (NEGATIVE) Influenza Type B Antigen Negative (NEGATIVE) White Blood Count 15.0x10^3/uL (4.0-11.0) Red Blood Count 3.72x10^6/uL (4.30-5.70) Hemoglobin 11.4g/dL (13.0-17.5) Hematocrit 33.8% (39.0-53.0) Mean Corpuscular Volume 91fL (79-100) Mean Corpuscular Hemoglobin 31pg (25-35) Mean Corpuscular Hemoglobin Concent 34g/dL (31-37) Red Cell Distribution Width 12.9% (11.5-14.5) Platelet Count 156x10^3/uL (140-400) Neutrophils (%) (Auto) 90% (31-73) Lymphocytes (%) (Auto) 5% (24-48) Monocytes (%) (Auto) 4% (0-9) Eosinophils (%) (Auto) 1% (0-3) Basophils (%) (Auto) 1% (0-3) Neutrophils # (Auto) 13.5x10^3uL (1.8-7.7) Lymphocytes # (Auto) 0.7x10^3/uL (1.0-4.8) Monocytes # (Auto) 0.5x10^3/uL (0.0-1.1) Eosinophils # (Auto) 0.2x10^3/uL (0.0-0.7) Basophils # (Auto) 0.1x10^3/uL (0.0-0.2) Segmented Neutrophils % 79% (35-66) Band Neutrophils % 14% (0-9) Lymphocytes % 5% (24-48) Monocytes % 1% (0-10) Eosinophils % 1% (0-5) Platelet Estimate Adequate (ADEQUATE) Sodium Level 129mmol/L (136-145) Potassium Level 4.5mmol/L (3.5-5.1) Chloride Level 97mmol/L (98-107) Carbon Dioxide Level 23mmol/L (21-32) Anion Gap 9 (6-14) Blood Urea Nitrogen 32mg/dL (8-26) Creatinine 2.2mg/dL (0.7-1.3) Estimated GFR (Cockcroft-Gault) 31.0 BUN/Creatinine Ratio 15 (6-20) Glucose Level 577mg/dL (70-99) Lactic Acid Level 1.9mmol/L (0.4-2.0) 1.9mmol/L (0.4-2.0) Calcium Level 9.1mg/dL (8.5-10.1) Total Bilirubin 0.6mg/dL (0.2-1.0) Aspartate Amino Transf (AST/SGOT) 15U/L (15-37) Alanine Aminotransferase (ALT/SGPT) 27U/L (16-63) Alkaline Phosphatase 78U/L (46-116) Total Protein 7.0g/dL (6.4-8.2) Albumin 2.8g/dL (3.4-5.0) Albumin/Globulin Ratio 0.7 (1.0-1.7) Lipase 701U/L (73-393) Urine Collection Type Unknown Urine Color Yellow Urine Clarity Clear Urine pH 5.5 Urine Specific Ponder 1.025 Urine Protein 30mg/dL (NEG-TRACE) Urine Glucose (UA) >=1000mg/dL (NEG) Urine Ketones (Stick) Negativemg/dL (NEG) Urine Blood Negative (NEG) Urine Nitrite Negative (NEG) Urine Bilirubin Negative (NEG) Urine Urobilinogen Dipstick 0.2mg/dL (0.2 mg/dL) Urine Leukocyte Esterase Negative (NEG) Urine RBC Occ/HPF (0-2) Urine WBC Occ/HPF (0-4) Urine Squamous Epithelial Cells Few/LPF Urine Bacteria Few/HPF (0-FEW) Test 06/05/16 01:38 06/05/16 03:42 06/05/16 04:50 06/05/16 05:53 Glucose (Fingerstick) 461mg/dL (70-99) 424mg/dL (70-99) 369mg/dL (70-99) 292mg/dL (70-99) Test 06/05/16 06:58 06/05/16 08:02 06/05/16 08:40 06/05/16 09:20 Glucose (Fingerstick) 265mg/dL (70-99) 214mg/dL (70-99) 175mg/dL (70-99) White Blood Count 24.9x10^3/uL (4.0-11.0) Red Blood Count 3.67x10^6/uL (4.30-5.70) Hemoglobin 11.2g/dL (13.0-17.5) Hematocrit 33.1% (39.0-53.0) Mean Corpuscular Volume 90fL (79-100) Mean Corpuscular Hemoglobin 31pg (25-35) Mean Corpuscular Hemoglobin Concent 34g/dL (31-37) Red Cell Distribution Width 12.8% (11.5-14.5) Platelet Count 170x10^3/uL (140-400) Neutrophils (%) (Auto) 93% (31-73) Lymphocytes (%) (Auto) 2% (24-48) Monocytes (%) (Auto) 5% (0-9) Eosinophils (%) (Auto) 0% (0-3) Basophils (%) (Auto) 0% (0-3) Neutrophils # (Auto) 23.2x10^3uL (1.8-7.7) Lymphocytes # (Auto) 0.5x10^3/uL (1.0-4.8) Monocytes # (Auto) 1.1x10^3/uL (0.0-1.1) Eosinophils # (Auto) 0.0x10^3/uL (0.0-0.7) Basophils # (Auto) 0.0x10^3/uL (0.0-0.2) Prothrombin Time 25.5SEC (11.7-14.0) Prothromb Time International Ratio 2.5 (0.8-1.1) Sodium Level 139mmol/L (136-145) Potassium Level 4.7mmol/L (3.5-5.1) Chloride Level 106mmol/L (98-107) Carbon Dioxide Level 26mmol/L (21-32) Anion Gap 7 (6-14) Blood Urea Nitrogen 33mg/dL (8-26) Creatinine 3.0mg/dL (0.7-1.3) Estimated GFR (Cockcroft-Gault) 21.7 Glucose Level 178mg/dL (70-99) Calcium Level 9.0mg/dL (8.5-10.1) Test 06/05/16 10:23 Glucose (Fingerstick) 153mg/dL (70-99) Laboratory Tests Test 06/04/16 21:20 06/04/16 22:25 06/05/16 00:55 06/05/16 01:30 Influenza Type A Antigen Negative (NEGATIVE) Influenza Type B Antigen Negative (NEGATIVE) White Blood Count 15.0x10^3/uL (4.0-11.0) Red Blood Count 3.72x10^6/uL (4.30-5.70) Hemoglobin 11.4g/dL (13.0-17.5) Hematocrit 33.8% (39.0-53.0) Mean Corpuscular Volume 91fL (79-100) Mean Corpuscular Hemoglobin 31pg (25-35) Mean Corpuscular Hemoglobin Concent 34g/dL (31-37) Red Cell Distribution Width 12.9% (11.5-14.5) Platelet Count 156x10^3/uL (140-400) Neutrophils (%) (Auto) 90% (31-73) Lymphocytes (%) (Auto) 5% (24-48) Monocytes (%) (Auto) 4% (0-9) Eosinophils (%) (Auto) 1% (0-3) Basophils (%) (Auto) 1% (0-3) Neutrophils # (Auto) 13.5x10^3uL (1.8-7.7) Lymphocytes # (Auto) 0.7x10^3/uL (1.0-4.8) Monocytes # (Auto) 0.5x10^3/uL (0.0-1.1) Eosinophils # (Auto) 0.2x10^3/uL (0.0-0.7) Basophils # (Auto) 0.1x10^3/uL (0.0-0.2) Segmented Neutrophils % 79% (35-66) Band Neutrophils % 14% (0-9) Lymphocytes % 5% (24-48) Monocytes % 1% (0-10) Eosinophils % 1% (0-5) Platelet Estimate Adequate (ADEQUATE) Sodium Level 129mmol/L (136-145) Potassium Level 4.5mmol/L (3.5-5.1) Chloride Level 97mmol/L (98-107) Carbon Dioxide Level 23mmol/L (21-32) Anion Gap 9 (6-14) Blood Urea Nitrogen 32mg/dL (8-26) Creatinine 2.2mg/dL (0.7-1.3) Estimated GFR (Cockcroft-Gault) 31.0 BUN/Creatinine Ratio 15 (6-20) Glucose Level 577mg/dL (70-99) Lactic Acid Level 1.9mmol/L (0.4-2.0) 1.9mmol/L (0.4-2.0) Calcium Level 9.1mg/dL (8.5-10.1) Total Bilirubin 0.6mg/dL (0.2-1.0) Aspartate Amino Transf (AST/SGOT) 15U/L (15-37) Alanine Aminotransferase (ALT/SGPT) 27U/L (16-63) Alkaline Phosphatase 78U/L (46-116) Total Protein 7.0g/dL (6.4-8.2) Albumin 2.8g/dL (3.4-5.0) Albumin/Globulin Ratio 0.7 (1.0-1.7) Lipase 701U/L (73-393) Urine Collection Type Unknown Urine Color Yellow Urine Clarity Clear Urine pH 5.5 Urine Specific Ponder 1.025 Urine Protein 30mg/dL (NEG-TRACE) Urine Glucose (UA) >=1000mg/dL (NEG) Urine Ketones (Stick) Negativemg/dL (NEG) Urine Blood Negative (NEG) Urine Nitrite Negative (NEG) Urine Bilirubin Negative (NEG) Urine Urobilinogen Dipstick 0.2mg/dL (0.2 mg/dL) Urine Leukocyte Esterase Negative (NEG) Urine RBC Occ/HPF (0-2) Urine WBC Occ/HPF (0-4) Urine Squamous Epithelial Cells Few/LPF Urine Bacteria Few/HPF (0-FEW) Test 06/05/16 01:38 06/05/16 03:42 06/05/16 04:50 06/05/16 05:53 Glucose (Fingerstick) 461mg/dL (70-99) 424mg/dL (70-99) 369mg/dL (70-99) 292mg/dL (70-99) Test 06/05/16 06:58 06/05/16 08:02 06/05/16 08:40 06/05/16 09:20 Glucose (Fingerstick) 265mg/dL (70-99) 214mg/dL (70-99) 175mg/dL (70-99) White Blood Count 24.9x10^3/uL (4.0-11.0) Red Blood Count 3.67x10^6/uL (4.30-5.70) Hemoglobin 11.2g/dL (13.0-17.5) Hematocrit 33.1% (39.0-53.0) Mean Corpuscular Volume 90fL (79-100) Mean Corpuscular Hemoglobin 31pg (25-35) Mean Corpuscular Hemoglobin Concent 34g/dL (31-37) Red Cell Distribution Width 12.8% (11.5-14.5) Platelet Count 170x10^3/uL (140-400) Neutrophils (%) (Auto) 93% (31-73) Lymphocytes (%) (Auto) 2% (24-48) Monocytes (%) (Auto) 5% (0-9) Eosinophils (%) (Auto) 0% (0-3) Basophils (%) (Auto) 0% (0-3) Neutrophils # (Auto) 23.2x10^3uL (1.8-7.7) Lymphocytes # (Auto) 0.5x10^3/uL (1.0-4.8) Monocytes # (Auto) 1.1x10^3/uL (0.0-1.1) Eosinophils # (Auto) 0.0x10^3/uL (0.0-0.7) Basophils # (Auto) 0.0x10^3/uL (0.0-0.2) Prothrombin Time 25.5SEC (11.7-14.0) Prothromb Time International Ratio 2.5 (0.8-1.1) Sodium Level 139mmol/L (136-145) Potassium Level 4.7mmol/L (3.5-5.1) Chloride Level 106mmol/L (98-107) Carbon Dioxide Level 26mmol/L (21-32) Anion Gap 7 (6-14) Blood Urea Nitrogen 33mg/dL (8-26) Creatinine 3.0mg/dL (0.7-1.3) Estimated GFR (Cockcroft-Gault) 21.7 Glucose Level 178mg/dL (70-99) Calcium Level 9.0mg/dL (8.5-10.1) Test 06/05/16 10:23 Glucose (Fingerstick) 153mg/dL (70-99) Images Images 1. No acute abdominal or pelvic finding. 2. Stable prominent left kidney with slight perinephric stranding. There has been interval increase in a 2.6 cm exophytic lesion within the lower pole of the left kidney, the attenuation which is greater than simple fluid. This may be a complex cyst or solid lesion. Renal protocol CT or MRI or renal sonography is recommended for characterization. 3. Stable small soft tissue nodules within the right renal fossa, likely representing lymph nodes rather than hypoplastic renal parenchyma. The stability favors benignity. TAMMY WESTON MD Jun 05, 2016 10:58
[2016-06-05] MEDS ORDERED: IV 1/2 NORMAL SALINE 1,000 ML IV SCH (11:30)
[2016-06-05] MEDS: PIPERACILLIN/TAZOBACTAM 2.25 GM in IV NORMAL SALINE 50ML 50 ML IV SCH ×2 (12:05→17:27)
[2016-06-05] MEDS: IV 1/2 NORMAL SALINE 1,000 ML IV SCH ×2 (12:07→21:34)
--- NOTE | 2016-06-05 12:07 | RAD ---
Indication acute renal failure superimposed on chronic renal disease Grayscale imaging of the kidneys was performed. The urinary bladder is somewhat distended. Estimated bladder volume was approximately 700 cc. Note is made of a CT examination yesterday demonstrating an absent right kidney. There is some lobulation, perhaps on bases, associated with the left kidney. Off the inferior aspect of the left kidney there is a well-defined hypoechoic 2.5 cm mass with some acoustic enhancement most compatible with a cyst. Follow-up ultrasound imaging in several months is suggested to confirm stability. IMPRESSION: Mass, most compatible with a cyst, off the inferior aspect of the left kidney. See above discussion
--- NOTE | 2016-06-05 12:43 | RAD ---
Bilateral lower extremity arterial ultrasound, 06/05/2016: History: Peripheral vascular disease, diabetes Duplex evaluation of the major arteries in both lower extremities was performed including grayscale, color-flow and spectral Doppler analysis. There is moderate scattered atherosclerotic plaquing bilaterally. On the right, the common femoral, superficial femoral and popliteal arteries demonstrate triphasic Doppler waveforms. No significant focal velocity acceleration is seen to suggest high-grade stenosis. The posterior tibial artery in the right lower leg is patent and demonstrates a triphasic Doppler waveform. The peroneal artery is patent with a monophasic Doppler waveform. The right anterior tibial artery demonstrates a triphasic Doppler waveform. A high velocity up to 197 cm/s was identified in this vessel raising the possibility of moderate focal stenosis. The right dorsalis pedis Doppler waveform is dampened and monophasic. On the left, the common femoral Doppler waveform is triphasic. The right superficial femoral and popliteal Doppler waveforms are predominantly monophasic. No significant focal femoral-popliteal velocity acceleration is seen to suggest high-grade femoral-popliteal stenosis. Patent posterior tibial, peroneal and anterior tibial arteries are present in the left lower leg demonstrating monophasic Doppler waveforms. The left dorsalis pedis artery is patent. IMPRESSION: 1. Moderate scattered atherosclerotic plaquing in both lower extremities. 2. No evidence of high-grade femoral-popliteal stenosis on either side. 3. Probable moderate stenosis of the right anterior tibial artery with degradation of blood flow in the right dorsalis pedis artery. 4. Mild degradation of the left leg Doppler waveforms at and distal to the superficial femoral artery level.
[2016-06-05] MEDS ORDERED: TRIA15CR3 TP (13:42)
[2016-06-05] MEDS ORDERED: MULT1TAB97 PO (13:42)
[2016-06-05] MEDS ORDERED: TRAM50TA PO (13:42)
[2016-06-05] MEDS ORDERED: CALC600T4 PO (13:42)
[2016-06-05] MEDS ORDERED: WARF7.5T6 PO (13:42)
[2016-06-05] MEDS ORDERED: LEVO125T5 PO (13:42)
[2016-06-05] MEDS ORDERED: WARF5TAB7 PO (13:42)
[2016-06-05] MEDS ORDERED: LOSA100T6 PO (13:42)
[2016-06-05] MEDS ORDERED: GABA600T2 PO ×2 (13:42)
[2016-06-05] MEDS ORDERED: INSU100C4 SQ (13:42)
[2016-06-05] MEDS ORDERED: PRED1TAB3 PO (13:42)
[2016-06-05] MEDS ORDERED: NPH,100V4 SQ (13:42)
[2016-06-05] MEDS: IV NORMAL SALINE 1000ML BAG 1,000 ML IV SCH (13:58)
[2016-06-05] MEDS: WARFARIN 5 MG TABLET. PO SCH (17:27)
[2016-06-05] MEDS ORDERED: TRAMADOL 50 MG TABLET. PO PRN (19:00)
[2016-06-05] MEDS ORDERED: CALCIUM CARBONATE 500 MG TAB.CHEW PO PRN (19:00)
[2016-06-05] MEDS ORDERED: INSULIN DETEMIR 300 UNITS/3 ML INSULN.PEN. SQ SCH (21:00)
[2016-06-05] MEDS: GABAPENTIN 300 MG CAPSULE. PO SCH (21:29)
--- NOTE | 2016-06-06 00:16 | CONS ---
DATE OF CONSULTATION: PRIMARY PHYSICIAN: Dr. Mosquera. REASON FOR CONSULTATION: Acute on chronic renal insufficiency. HISTORY OF PRESENT ILLNESS: The patient is a 55-year-old pleasant gentleman. His is in the hospital currently at this time and is on dialysis. He apparently was sitting with his around dinnertime after she returned from the OR and noted that he was chilling. He does not recollect having a fever per se. He apparently went down to the ER, he was diagnosed with flu-like symptoms. He apparently vomited 2 or 3 times and complained of infraumbilical suprapubic pain and discomfort with urinary frequency. He is also noted to have productive cough, nasal congestion, and sore throat. As reported in the ER, his flu test was negative. His creatinine was noted to be elevated at 3.0, we were asked to see him for the same. He is known to have a single functioning kidney. His lipase was 701 and glucose of 577. He does admit to feeling somewhat dehydrated. Through all this he is now admitted to the hospital. He has had fevers as high as 103.1. He is feeling somewhat better. Urine output has been minimal. He did undergo CT scan of his abdomen and pelvis which shows possibly some stranding around his single functioning kidney on the left. There is also mild stranding within the root of the mesentery. 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 FAMILY HISTORY: Also positive for diabetes, colon cancer and breast cancer. Denies kidney problems in the family. For rest of details, please see electronic records. TAMMY WESTON MD DR: KATERINA/kayla JOB#: [id number] / [id number]
[2016-06-06 03:00] VITALS: BP_SYST 124; BP_SYST 131; BP_DIAS 44; BP_DIAS 68
[2016-06-06] MEDS: IV 1/2 NORMAL SALINE 1,000 ML IV SCH ×2 (03:30→23:22)
[2016-06-06] MEDS ORDERED: ACETAMINOPHEN 325 MG TABLET. PO PRN (04:30)
[2016-06-06 05:08] LABS: BASO % 0 % (0-3); EOS % 2 % (0-3); HEMATOCRIT 30.2 % (39.0-53.0); HEMOGLOBIN 10.2 g/dL (13.0-17.5); LYMPH % 7 % (24-48); MEAN CORPUSCULAR HEMOGLOBIN 31 pg (25-35); MEAN CORPUSCULAR HGB CONC 34 g/dL (31-37); MEAN CORPUSCULAR VOLUME 93 fL (79-100); MONO % 4 % (0-9); NEUT % 87 % (31-73); PLATELET COUNT 130 x10^3/uL (140-400); RED BLOOD COUNT 3.26 x10^6/uL (4.30-5.70); RED CELL DISTRIBUTION WIDTH 12.9 % (11.5-14.5); WHITE BLOOD COUNT 14.1 x10^3/uL (4.0-11.0)
[2016-06-06 05:30] LABS: CALCIUM 7.7 mg/dL (8.5-10.1); CREATININE 2.8 mg/dL (0.7-1.3); GFR 23.5; POTASSIUM 4.4 mmol/L (3.5-5.1)
[2016-06-06 05:46] LABS: MAGNESIUM 1.4 mg/dL (1.8-2.4); PHOSPHORUS 3.1 mg/dL (2.6-4.7)
[2016-06-06] MEDS: PIPERACILLIN/TAZOBACTAM 2.25 GM in IV NORMAL SALINE 50ML 50 ML IV SCH ×6 (06:00→23:22)
[2016-06-06] MEDS: LEVOTHYROXINE 125 MCG TABLET PO SCH (06:36)
[2016-06-06 07:45] VITALS: BP 113/53
--- NOTE | 2016-06-06 07:54 | CONS ---
DATE OF CONSULTATION: 06/05/2016 LOCATION: The patient is in room 504. REQUESTING PHYSICIAN: Dr. Morris. REASON FOR CONSULTATION: Sepsis, UTI, diabetic foot ulcer. HISTORY OF PRESENT ILLNESS: The patient is a 55-year-old gentleman with a history of diabetes since age 29. He has been at [facility]. His is being treated for MRSA sepsis. Last night, he developed a sudden onset of fevers and chills. He has had some nonhealing foot lesions that he has been seeing Podiatry for, but he has not been taking any medications or antibiotics for this. Presented to the Emergency Room. He had a temperature of 101.3. White blood cell count was elevated at 15 with 14% bands. His creatinine was 2.2. His glucose was 577. He has been admitted to the hospital, placed on Rocephin. Currently, he is lying in bed. He had a little bit of a headache. This was improved. No sinus issues, sore throat or cough. No nausea or vomiting. No diarrhea. States he has been passing his urine okay. PAST MEDICAL HISTORY: Positive for the above-mentioned diabetes. Has hypertension, low back pain as well as the ulcerations on his right foot and on his left foot as well. History of previous DVT. Also has a history of a single kidney. Hypothyroidism. PAST SURGICAL HISTORY: Positive for hernia surgery at age 4 and right knee surgery x 2. REVIEW OF SYSTEMS: Otherwise negative, except for what is mentioned above. ALLERGIES: LISTED TO STATINS, ALLOPURINOL, INFLUENZA VACCINE AND PNEUMOCOCCAL VACCINE. SOCIAL HISTORY: Nonsmoker. He is . He has no pets. FAMILY HISTORY: Negative for diabetes or any kidney disease. CURRENT MEDICATIONS: Include Rocephin, insulin, heparin, levothyroxine, Zofran. PHYSICAL EXAMINATION: VITAL SIGNS: T-max 103.1, currently 99.9, pulse 108, respirations 20, blood pressure 108/61, satting 95% on room air. CONSTITUTIONAL: He is lying in bed. He is alert. He is cooperative. He is obese. HEENT: Pupils are equal and reactive with normal conjunctivae. Oral cavity, pharynx is clear. NECK: Supple, no JVD. LUNGS: Clear to auscultation bilaterally. HEART: S1, S2, without murmur. ABDOMEN: Obese, soft, nontender, nondistended. Positive bowel sounds. EXTREMITIES: Without clubbing, cyanosis. His left lower extremity has erythema and warmth associated with it. He has a superficial lesion on the medial aspect of his left ankle. His left fifth toe has some mild fluctuance associated with it and there is some tinea associated with it. His right lower extremity is somewhat cool to touch. He has decreased pulses. He has got some abrasions on his second and third toes there. Skin is otherwise warm to touch. NEUROLOGIC: Nonfocal. Moves all his extremities. PSYCHIATRIC: Affect is appropriate. LABORATORY DATA: White count 15, hemoglobin 11.4, platelets of 156, segs are 79, bands are 14. Creatinine of 3, glucose of 178. IMAGING: Abdominal CT scan without contrast, his left kidney with slight perinephric stranding, stable soft tissue nodules in the right renal fossa. Chest x-ray, no acute process. IMPRESSION: 1. Streptococcal sepsis, present on admission from 06/04/2016. 2. Fever. 3. Left lower extremity cellulitis. 4. Left fifth toe questionable abscess and medial ankle wound. 5. Right second and third toe infections. 6. Questionable peripheral arterial disease with decreased pulses. 7. Acute kidney injury on top of chronic kidney disease. He has a single kidney. He is followed by ____. 8. Leukocytosis. RECOMMENDATIONS: We will change to Zosyn, fluconazole. We will dose daptomycin x 1. Follow up on labs and cultures and obtain arterial Dopplers of his lower extremities. Dr. Mae has been consulted and Dr. Rajendra Carrasquillo. Thank you for allowing me to participate in this patient's care. If you have any questions, please do not hesitate to contact me. VINCE LEBLANC MD DR: REJI/kayla JOB#: [id number] / [id number]
[2016-06-06] MEDS: INSULIN ASPART 300 UNITS/3 ML INSULN.PEN SQ SCH ×6 (08:00→17:48)
[2016-06-06] MEDS: predniSONE 5 MG TABLET PO SCH (08:05)
[2016-06-06] MEDS: GABAPENTIN 300 MG CAPSULE. PO SCH ×2 (08:06→15:44)
[2016-06-06] MEDS: FLUCONAZOLE 100 MG TABLET. PO SCH (08:06)
[2016-06-06] MEDS: HEPARIN PF for SUB-Q USE 5,000 UNIT/0.5 ML VIAL. SQ SCH (08:13)
[2016-06-06] MEDS: INSULIN DETEMIR 300 UNITS/3 ML INSULN.PEN. SQ SCH ×2 (08:14→21:00)
[2016-06-06] MEDS ORDERED: LOSARTAN POTASSIUM 50 MG TABLET. PO SCH (09:00)
[2016-06-06] MEDS: diphenhydrAMINE HCL 25 MG CAPSULE PO PRN ×2 (11:16→20:57)
[2016-06-06 11:40] VITALS: BP 106/54
[2016-06-06] MEDS ORDERED: MAGNESIUM SULFATE 4GM 100 ML IV ONE (11:45)
--- NOTE | 2016-06-06 12:00 | PDOC ---
Renal-Progress Notes Subjective Notes Notes NO NEW COMPLAINTS History of Present Illness Hx of present illness STABLE Vitals Vitals Vital Signs Date Time Temp Pulse Resp B/P Pulse Ox O2 Delivery O2 Flow Rate FiO2 06/06/16 11:40 98.1 97 106/54 93 Room Air 98.1 06/06/16 07:45 18 Weight Weight [ ] I.O. Intake and Output Intake and Output 06/06/16 06:59 Intake Total 2580 ml Output Total 650 ml Balance 1930 ml Intake Oral 1530 ml IV Total 1050 ml Output Urine Total 650 ml Labs Labs Laboratory Tests Test 06/05/16 14:20 06/05/16 16:49 06/05/16 20:52 06/05/16 22:54 Glucose (Fingerstick) 242mg/dL (70-99) 127mg/dL (70-99) 110mg/dL (70-99) 69mg/dL (70-99) Test 06/06/16 04:12 06/06/16 07:48 06/06/16 11:20 White Blood Count 14.1x10^3/uL (4.0-11.0) Red Blood Count 3.26x10^6/uL (4.30-5.70) Hemoglobin 10.2g/dL (13.0-17.5) Hematocrit 30.2% (39.0-53.0) Mean Corpuscular Volume 93fL (79-100) Mean Corpuscular Hemoglobin 31pg (25-35) Mean Corpuscular Hemoglobin Concent 34g/dL (31-37) Red Cell Distribution Width 12.9% (11.5-14.5) Platelet Count 130x10^3/uL (140-400) Neutrophils (%) (Auto) 87% (31-73) Lymphocytes (%) (Auto) 7% (24-48) Monocytes (%) (Auto) 4% (0-9) Eosinophils (%) (Auto) 2% (0-3) Basophils (%) (Auto) 0% (0-3) Neutrophils # (Auto) 12.3x10^3uL (1.8-7.7) Lymphocytes # (Auto) 1.0x10^3/uL (1.0-4.8) Monocytes # (Auto) 0.6x10^3/uL (0.0-1.1) Eosinophils # (Auto) 0.2x10^3/uL (0.0-0.7) Basophils # (Auto) 0.0x10^3/uL (0.0-0.2) Sodium Level 134mmol/L (136-145) Potassium Level 4.4mmol/L (3.5-5.1) Chloride Level 103mmol/L (98-107) Carbon Dioxide Level 22mmol/L (21-32) Anion Gap 9 (6-14) Blood Urea Nitrogen 36mg/dL (8-26) Creatinine 2.8mg/dL (0.7-1.3) Estimated GFR (Cockcroft-Gault) 23.5 Glucose Level 196mg/dL (70-99) Calcium Level 7.7mg/dL (8.5-10.1) Phosphorus Level 3.1mg/dL (2.6-4.7) Magnesium Level 1.4mg/dL (1.8-2.4) Glucose (Fingerstick) 215mg/dL (70-99) 143mg/dL (70-99) Micro Micro Microbiology 06/04/16 Blood Culture - Preliminary, Resulted 06/04/16 Blood Culture Result 1 (LEIDY) - Preliminary, Resulted Review of Systems Constitutional: yes: no symptom reported Physical Exam General Appearance: no apparent distress Skin: warm Respiratory: bilateral CTA Heart: S1S2 Abdomen: soft, bowel sounds present Extremities: pulses present Neurology: alert Musculoskeletal: low back pain Assessment Assessment IMP STREP SEPSIS LLE CELLULITIS SINGLE KIDNEY ACUTE RENAL FAILURE-CR 3.0 TO 2.8 LOW MAG CKD STAGE 3 WITH CR OF 1.7 PLAN CONT WITH IVF'S REPLACE MAG HOLD LOSARTAN CONT ANTIBIOTICS JAEL MAK MD Jun 06, 2016 12:00
[2016-06-06] MEDS ORDERED: MAGNESIUM SULFATE 2GM 50 ML IV ONE (12:30)
--- NOTE | 2016-06-06 13:58 | PDOC ---
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 right foot MRI to rule out osteo cont iv abx for now ivf, hold acei on aspart 30u tid, levemir decrease to 30u daily, 20u qhs, SSI wound care ptot replete Mag warfarin, INR daily History of Present Illness History of Present Illness pt not seeing podiatry for years, with chronic bl foot wound not check his glucose at home too low Mag Vitals Vitals Vital Signs Date Time Temp Pulse Resp B/P Pulse Ox O2 Delivery O2 Flow Rate FiO2 06/06/16 11:40 98.1 97 106/54 93 Room Air 98.1 06/06/16 07:45 18 Physical Exam General: Alert, Oriented X3, Cooperative, mild distress Heart: Regular rate, Normal S1, Normal S2 Lungs: Clear Abdomen: Normal bowel sounds, Soft Extremities: No cyanosis, No edema, Other (right foot has dreesing on. from pic looks severe erythema on toes with ulcer) Skin: Other (small 1.5 cm plantar lefion left foot, calloused, ) Labs LABS Laboratory Tests Test 06/05/16 14:20 06/05/16 16:49 06/05/16 20:52 06/05/16 22:54 Glucose (Fingerstick) 242mg/dL (70-99) 127mg/dL (70-99) 110mg/dL (70-99) 69mg/dL (70-99) Test 06/06/16 04:12 06/06/16 07:48 06/06/16 11:20 White Blood Count 14.1x10^3/uL (4.0-11.0) Red Blood Count 3.26x10^6/uL (4.30-5.70) Hemoglobin 10.2g/dL (13.0-17.5) Hematocrit 30.2% (39.0-53.0) Mean Corpuscular Volume 93fL (79-100) Mean Corpuscular Hemoglobin 31pg (25-35) Mean Corpuscular Hemoglobin Concent 34g/dL (31-37) Red Cell Distribution Width 12.9% (11.5-14.5) Platelet Count 130x10^3/uL (140-400) Neutrophils (%) (Auto) 87% (31-73) Lymphocytes (%) (Auto) 7% (24-48) Monocytes (%) (Auto) 4% (0-9) Eosinophils (%) (Auto) 2% (0-3) Basophils (%) (Auto) 0% (0-3) Neutrophils # (Auto) 12.3x10^3uL (1.8-7.7) Lymphocytes # (Auto) 1.0x10^3/uL (1.0-4.8) Monocytes # (Auto) 0.6x10^3/uL (0.0-1.1) Eosinophils # (Auto) 0.2x10^3/uL (0.0-0.7) Basophils # (Auto) 0.0x10^3/uL (0.0-0.2) Sodium Level 134mmol/L (136-145) Potassium Level 4.4mmol/L (3.5-5.1) Chloride Level 103mmol/L (98-107) Carbon Dioxide Level 22mmol/L (21-32) Anion Gap 9 (6-14) Blood Urea Nitrogen 36mg/dL (8-26) Creatinine 2.8mg/dL (0.7-1.3) Estimated GFR (Cockcroft-Gault) 23.5 Glucose Level 196mg/dL (70-99) Calcium Level 7.7mg/dL (8.5-10.1) Phosphorus Level 3.1mg/dL (2.6-4.7) Magnesium Level 1.4mg/dL (1.8-2.4) Glucose (Fingerstick) 215mg/dL (70-99) 143mg/dL (70-99) Review of Systems Review of Systems no fever, chills, sob or chest pain Assessment and Plan Assessmemt and Plan Problems Medical Problems: (1) Diabetic foot ulcer Status: Acute (2) Hyperglycemia Status: Acute (3) Pancreatitis Status: Acute (4) Sepsis Status: Acute Problems: Comment Review of Relevant I have reviewed the following items randy (where applicable) has been applied. Labs Laboratory Tests Test 06/04/16 21:20 06/04/16 22:25 06/05/16 00:55 06/05/16 01:30 Influenza Type A Antigen Negative (NEGATIVE) Influenza Type B Antigen Negative (NEGATIVE) White Blood Count 15.0x10^3/uL (4.0-11.0) Red Blood Count 3.72x10^6/uL (4.30-5.70) Hemoglobin 11.4g/dL (13.0-17.5) Hematocrit 33.8% (39.0-53.0) Mean Corpuscular Volume 91fL (79-100) Mean Corpuscular Hemoglobin 31pg (25-35) Mean Corpuscular Hemoglobin Concent 34g/dL (31-37) Red Cell Distribution Width 12.9% (11.5-14.5) Platelet Count 156x10^3/uL (140-400) Neutrophils (%) (Auto) 90% (31-73) Lymphocytes (%) (Auto) 5% (24-48) Monocytes (%) (Auto) 4% (0-9) Eosinophils (%) (Auto) 1% (0-3) Basophils (%) (Auto) 1% (0-3) Neutrophils # (Auto) 13.5x10^3uL (1.8-7.7) Lymphocytes # (Auto) 0.7x10^3/uL (1.0-4.8) Monocytes # (Auto) 0.5x10^3/uL (0.0-1.1) Eosinophils # (Auto) 0.2x10^3/uL (0.0-0.7) Basophils # (Auto) 0.1x10^3/uL (0.0-0.2) Segmented Neutrophils % 79% (35-66) Band Neutrophils % 14% (0-9) Lymphocytes % 5% (24-48) Monocytes % 1% (0-10) Eosinophils % 1% (0-5) Platelet Estimate Adequate (ADEQUATE) Sodium Level 129mmol/L (136-145) Potassium Level 4.5mmol/L (3.5-5.1) Chloride Level 97mmol/L (98-107) Carbon Dioxide Level 23mmol/L (21-32) Anion Gap 9 (6-14) Blood Urea Nitrogen 32mg/dL (8-26) Creatinine 2.2mg/dL (0.7-1.3) Estimated GFR (Cockcroft-Gault) 31.0 BUN/Creatinine Ratio 15 (6-20) Glucose Level 577mg/dL (70-99) Lactic Acid Level 1.9mmol/L (0.4-2.0) 1.9mmol/L (0.4-2.0) Calcium Level 9.1mg/dL (8.5-10.1) Total Bilirubin 0.6mg/dL (0.2-1.0) Aspartate Amino Transf (AST/SGOT) 15U/L (15-37) Alanine Aminotransferase (ALT/SGPT) 27U/L (16-63) Alkaline Phosphatase 78U/L (46-116) Total Protein 7.0g/dL (6.4-8.2) Albumin 2.8g/dL (3.4-5.0) Albumin/Globulin Ratio 0.7 (1.0-1.7) Lipase 701U/L (73-393) Urine Collection Type Unknown Urine Color Yellow Urine Clarity Clear Urine pH 5.5 Urine Specific [place] 1.025 Urine Protein 30mg/dL (NEG-TRACE) Urine Glucose (UA) >=1000mg/dL (NEG) Urine Ketones (Stick) Negativemg/dL (NEG) Urine Blood Negative (NEG) Urine Nitrite Negative (NEG) Urine Bilirubin Negative (NEG) Urine Urobilinogen Dipstick 0.2mg/dL (0.2 mg/dL) Urine Leukocyte Esterase Negative (NEG) Urine RBC Occ/HPF (0-2) Urine WBC Occ/HPF (0-4) Urine Squamous Epithelial Cells Few/LPF Urine Bacteria Few/HPF (0-FEW) Test 06/05/16 01:38 06/05/16 03:42 06/05/16 04:50 06/05/16 05:53 Glucose (Fingerstick) 461mg/dL (70-99) 424mg/dL (70-99) 369mg/dL (70-99) 292mg/dL (70-99) Test 06/05/16 06:58 06/05/16 08:02 06/05/16 08:40 06/05/16 09:20 Glucose (Fingerstick) 265mg/dL (70-99) 214mg/dL (70-99) 175mg/dL (70-99) White Blood Count 24.9x10^3/uL (4.0-11.0) Red Blood Count 3.67x10^6/uL (4.30-5.70) Hemoglobin 11.2g/dL (13.0-17.5) Hematocrit 33.1% (39.0-53.0) Mean Corpuscular Volume 90fL (79-100) Mean Corpuscular Hemoglobin 31pg (25-35) Mean Corpuscular Hemoglobin Concent 34g/dL (31-37) Red Cell Distribution Width 12.8% (11.5-14.5) Platelet Count 170x10^3/uL (140-400) Neutrophils (%) (Auto) 93% (31-73) Lymphocytes (%) (Auto) 2% (24-48) Monocytes (%) (Auto) 5% (0-9) Eosinophils (%) (Auto) 0% (0-3) Basophils (%) (Auto) 0% (0-3) Neutrophils # (Auto) 23.2x10^3uL (1.8-7.7) Lymphocytes # (Auto) 0.5x10^3/uL (1.0-4.8) Monocytes # (Auto) 1.1x10^3/uL (0.0-1.1) Eosinophils # (Auto) 0.0x10^3/uL (0.0-0.7) Basophils # (Auto) 0.0x10^3/uL (0.0-0.2) Prothrombin Time 25.5SEC (11.7-14.0) Prothromb Time International Ratio 2.5 (0.8-1.1) Sodium Level 139mmol/L (136-145) Potassium Level 4.7mmol/L (3.5-5.1) Chloride Level 106mmol/L (98-107) Carbon Dioxide Level 26mmol/L (21-32) Anion Gap 7 (6-14) Blood Urea Nitrogen 33mg/dL (8-26) Creatinine 3.0mg/dL (0.7-1.3) Estimated GFR (Cockcroft-Gault) 21.7 Glucose Level 178mg/dL (70-99) Hemoglobin A1c 12.7% (4.8-5.6) Calcium Level 9.0mg/dL (8.5-10.1) Test 06/05/16 10:23 06/05/16 11:33 06/05/16 14:20 06/05/16 16:49 Glucose (Fingerstick) 153mg/dL (70-99) 150mg/dL (70-99) 242mg/dL (70-99) 127mg/dL (70-99) Test 06/05/16 20:52 06/05/16 22:54 06/06/16 04:12 06/06/16 07:48 Glucose (Fingerstick) 110mg/dL (70-99) 69mg/dL (70-99) 215mg/dL (70-99) White Blood Count 14.1x10^3/uL (4.0-11.0) Red Blood Count 3.26x10^6/uL (4.30-5.70) Hemoglobin 10.2g/dL (13.0-17.5) Hematocrit 30.2% (39.0-53.0) Mean Corpuscular Volume 93fL (79-100) Mean Corpuscular Hemoglobin 31pg (25-35) Mean Corpuscular Hemoglobin Concent 34g/dL (31-37) Red Cell Distribution Width 12.9% (11.5-14.5) Platelet Count 130x10^3/uL (140-400) Neutrophils (%) (Auto) 87% (31-73) Lymphocytes (%) (Auto) 7% (24-48) Monocytes (%) (Auto) 4% (0-9) Eosinophils (%) (Auto) 2% (0-3) Basophils (%) (Auto) 0% (0-3) Neutrophils # (Auto) 12.3x10^3uL (1.8-7.7) Lymphocytes # (Auto) 1.0x10^3/uL (1.0-4.8) Monocytes # (Auto) 0.6x10^3/uL (0.0-1.1) Eosinophils # (Auto) 0.2x10^3/uL (0.0-0.7) Basophils # (Auto) 0.0x10^3/uL (0.0-0.2) Sodium Level 134mmol/L (136-145) Potassium Level 4.4mmol/L (3.5-5.1) Chloride Level 103mmol/L (98-107) Carbon Dioxide Level 22mmol/L (21-32) Anion Gap 9 (6-14) Blood Urea Nitrogen 36mg/dL (8-26) Creatinine 2.8mg/dL (0.7-1.3) Estimated GFR (Cockcroft-Gault) 23.5 Glucose Level 196mg/dL (70-99) Calcium Level 7.7mg/dL (8.5-10.1) Phosphorus Level 3.1mg/dL (2.6-4.7) Magnesium Level 1.4mg/dL (1.8-2.4) Test 06/06/16 11:20 Glucose (Fingerstick) 143mg/dL (70-99) Laboratory Tests Test 06/05/16 14:20 06/05/16 16:49 06/05/16 20:52 06/05/16 22:54 Glucose (Fingerstick) 242mg/dL (70-99) 127mg/dL (70-99) 110mg/dL (70-99) 69mg/dL (70-99) Test 06/06/16 04:12 06/06/16 07:48 06/06/16 11:20 White Blood Count 14.1x10^3/uL (4.0-11.0) Red Blood Count 3.26x10^6/uL (4.30-5.70) Hemoglobin 10.2g/dL (13.0-17.5) Hematocrit 30.2% (39.0-53.0) Mean Corpuscular Volume 93fL (79-100) Mean Corpuscular Hemoglobin 31pg (25-35) Mean Corpuscular Hemoglobin Concent 34g/dL (31-37) Red Cell Distribution Width 12.9% (11.5-14.5) Platelet Count 130x10^3/uL (140-400) Neutrophils (%) (Auto) 87% (31-73) Lymphocytes (%) (Auto) 7% (24-48) Monocytes (%) (Auto) 4% (0-9) Eosinophils (%) (Auto) 2% (0-3) Basophils (%) (Auto) 0% (0-3) Neutrophils # (Auto) 12.3x10^3uL (1.8-7.7) Lymphocytes # (Auto) 1.0x10^3/uL (1.0-4.8) Monocytes # (Auto) 0.6x10^3/uL (0.0-1.1) Eosinophils # (Auto) 0.2x10^3/uL (0.0-0.7) Basophils # (Auto) 0.0x10^3/uL (0.0-0.2) Sodium Level 134mmol/L (136-145) Potassium Level 4.4mmol/L (3.5-5.1) Chloride Level 103mmol/L (98-107) Carbon Dioxide Level 22mmol/L (21-32) Anion Gap 9 (6-14) Blood Urea Nitrogen 36mg/dL (8-26) Creatinine 2.8mg/dL (0.7-1.3) Estimated GFR (Cockcroft-Gault) 23.5 Glucose Level 196mg/dL (70-99) Calcium Level 7.7mg/dL (8.5-10.1) Phosphorus Level 3.1mg/dL (2.6-4.7) Magnesium Level 1.4mg/dL (1.8-2.4) Glucose (Fingerstick) 215mg/dL (70-99) 143mg/dL (70-99) Microbiology 06/04/16 Blood Culture - Preliminary, Resulted 06/04/16 Blood Culture Result 1 (LEIDY) - Preliminary, Resulted Medications Current Medications Sodium Chloride (Iv Sodium Chloride 0.9% 1000ml Bag) 1,000 ml @ 3,510 mls/hr Q18M IV Last administered on 06/04/16t 03:55; Admin Dose 3,510 MLS/HR; Start at 21:38; Stop 06/04/16 at 22:38; Status DC Morphine Sulfate 4 mg PRN Q15MIN PRN IV/SQ PAIN GREATER THAN 3/10 Last administered on 06/04/16t 22:07; Admin Dose 4 MG; Start 06/04/16 at 21:45; Stop 06/05/16 at 21:44; Status DC Ondansetron HCl (Zofran) 4 mg 1X ONCE IV Last administered on 06/04/16 22:07 ; Admin Dose 4 MG; Start 06/04/16 at 21:45; Stop 06/04/16 at 21:46; Status DC Acetaminophen (Tylenol) 650 mg 1X ONCE PO Last administered on 06/04/16 22:07 ; Admin Dose 650 MG; Start 06/04/16 at 21:45; Stop 06/04/16 at 21:46; Status DC Ondansetron HCl (Zofran) 4 mg PRN Q8HRS PRN IV NAUSEA/VOMITING; Start 06/04/16 at 23:45; Stop 06/05/16 at 23:44; Status DC Morphine Sulfate 4 mg 4 mg PRN Q2HR PRN IV PAIN Last administered on 06/05/16 05:35; Admin Dose 4 MG; Start 06/04/16 at 23:45; Stop 06/05/16 at 23:44; Status DC Sodium Chloride (Iv Sodium Chloride 0.9% 1000ml Bag) 1,000 ml @ 125 mls/hr Q8H IV Last administered on 06/04/16 01:30; Admin Dose 125 MLS/HR; Start 06/04/16 at 23:45; Stop 06/05/16 at 11:18; Status DC Acetaminophen 650 mg 650 mg PRN Q4HRS PRN PO FEVER Last administered on 02:24; Admin Dose 650 MG; Start 06/04/16 at 23:45; Stop 06/05/16 at 23:44; Status DC Insulin Human Regular 150 ml @ 0 mls/hr 1X ONCE IV Last administered on 02:46; Admin Dose 8 MLS/HR; Start 06/05/16 at 00:00; Stop 06/05/16 at 08:26 ; Status DC Ceftriaxone Sodium/Sodium Chloride (Rocephin/Iv Sodium Chloride 0.9% 50ml) 50 ml @ 100 mls/hr Q24H IV Last administered on 06/05/16 00:00; Admin Dose 100 MLS/HR; Start 06/05/16 at 00:00; Stop 06/05/16 at 09:43; Status DC Levothyroxine Sodium (Synthroid) 100 mcg DAILY07 PO Last administered on 08:54; Admin Dose 100 MCG; Start 06/05/16 at 08:15; Stop 06/05/16 at 20:29 ; Status DC Warfarin Sodium (Coumadin Per Pharmacy) 1 each PRN DAILY PRN MC SEE COMMENTS Last administered on 06/06/16 08:39; Admin Dose 1 EACH; Start 06/05/16 at 08:15 Insulin Detemir (Levemir) 25 units QHS SQ ; Start 06/05/16 at 21:00; Stop at 11:27; Status DC Insulin Detemir (Levemir) 40 units DAILY08 SQ Last administered on 06/06/16 08 :14; Admin Dose 40 UNITS; Start 06/05/16 at 08:15; Stop 06/06/16 at 11:27; Status DC Insulin Aspart (Novolog) 30 units TIDAC SQ Last administered on 06/06/16 12:22 ; Admin Dose 30 UNITS; Start 06/05/16 at 08:30 Insulin Aspart (Novolog) 0-9 UNITS TIDWMEALS SQ ; Start 06/05/16 at 12:00 Dextrose (Dextrose 50%-Water Syringe) 12.5 gm PRN Q15MIN PRN IV SEE COMMENTS; Start 06/05/16 at 08:15 Heparin Sodium (Porcine) 5000 unit 5,000 unit Q12HR SQ Last administered on 08:13; Admin Dose 5,000 UNIT; Start 06/05/16 at 09:00; Stop 06/06/16 at 13:45; Status DC Piperacillin Sod/ Tazobactam Sod 2.25 gm/Sodium Chloride 50 ml @ 100 mls/hr Q6HRS IV Last administered on 06/06/16 11:27; Admin Dose 100 MLS/HR; Start at 12:00 Daptomycin/Sodium Chloride (Cubicin/Iv Sodium Chloride 0.9% 50ml) 50 ml @ 100 mls/hr ONCE ONCE IV Last administered on 06/05/16 10:34; Admin Dose 100 MLS/ HR; Start 06/05/16 at 10:30; Stop 06/05/16 at 10:59; Status DC Fluconazole 100 mg 100 mg DAILY PO Last administered on 06/06/16 08:06; Admin Dose 100 MG; Start 06/05/16 at 10:00 Sodium Chloride 1,000 ml @ 125 mls/hr Q8H IV ; Start 06/05/16 at 11:30; Status UNV Sodium Chloride (Iv Sodium Chloride 0.45%) 1,000 ml @ 125 mls/hr Q8H IV Last administered on 06/05/16 21:34; Admin Dose 125 MLS/HR; Start 06/05/16 at 11:30 Warfarin Sodium (Coumadin) 5 mg QMWF PO Last administered on 06/05/16 17:27; Admin Dose 5 MG; Start 06/05/16 at 17:00 Warfarin Sodium (Coumadin) 7.5 mg QTUTHSASU PO ; Start 06/06/16 at 16:00 Levothyroxine Sodium (Synthroid) 125 mcg DAILY07 PO Last administered on 06:36; Admin Dose 125 MCG; Start 06/06/16 at 07:00 Prednisone (Prednisone) 5 mg DAILY PO Last administered on 06/06/16 08:05; Admin Dose 5 MG; Start 06/06/16 at 09:00 Tramadol HCl (Ultram) 50 mg PRN Q6HRS PRN PO pain; Start 06/05/16 at 19:00 Gabapentin (Neurontin) 600 mg [id number] PO Last administered on 06/06/16 08:06; Admin Dose 600 MG; Start 06/05/16 at 21:00 Losartan Potassium (Cozaar) 100 mg DAILY PO Last administered on 06/06/16 08: 06; Admin Dose 100 MG; Start 06/06/16 at 09:00; Stop 06/06/16 at 13:45; Status DC Calcium Carbonate/ Glycine (Tums) 500 mg PRN AFTMEALHC PRN PO INDIGESTION; Start 06/05/16 at 19:00 Acetaminophen (Tylenol) 650 mg PRN Q6HRS PRN PO PAIN Last administered on 06:36; Admin Dose 650 MG; Start 06/06/16 at 04:30 Diphenhydramine HCl (Benadryl) 25 mg PRN Q6HRS PRN PO ITCHING Last administered on 06/06/16 11:16; Admin Dose 25 MG; Start 06/06/16 at 10:45 Insulin Detemir (Levemir) 30 units DAILY08 SQ ; Start 06/07/16 at 08:00 Insulin Detemir 20 units 20 units QHS SQ ; Start 06/06/16 at 21:00 Magnesium Sulfate/ Dextrose 100 ml @ 25 mls/hr 1X ONCE IV Last administered on 06/06/16t 12:19; Admin Dose 25 MLS/HR; Start 06/06/16 at 11:45; Stop at 15:44 Magnesium Sulfate/ Dextrose (Magnesium Sulfate PREMIX 2GM) 50 ml @ 25 mls/hr 1X ONCE IV ; Start 06/06/16 at 12:30; Stop 06/06/16 at 14:29; Status Cancel Active Scripts Active Reported Novolin N (Nph, Human Insulin Isophane) 100 Unit/1 Ml Vial 20-25 Unit SQ QHS Novolog (Insulin Aspart) 100 Unit/1 Ml Cartridge 30 Unit SQ TIDWMEALS Triamcinolone Acetonide 0.1% Cream (Triamcinolone Acetonide) 15 Gm Cream..g. 1 Miles TP Tramadol Hcl 50 Mg Tablet 1 Tab PO PRN Q6HRS Calcium (Calcium Carbonate) 600 Mg Tablet 1,200 Mg PO Warfarin Sodium 7.5 Mg Tablet 7.5 Mg PO QTUTHSASU Warfarin Sodium 5 Mg Tablet 1 Tab PO QMWF Daily Multiple Vitamin (Multivitamin) 1 Each Tablet 1 Each PO Gabapentin 600 Mg Tablet 1,200 Mg PO HS Gabapentin 600 Mg Tablet 600 Mg PO [id number] Losartan Potassium 100 Mg Tablet 100 Mg PO DAILY Prednisone 1 Mg Tablet 4 Tab PO DAILY Levothyroxine Sodium 125 Mcg Tablet 1 Tab PO DAILY Vitals/I & O Vital Sign - Last 24 Hours 06/05/16 06/05/16 06/05/16 06/05/16 15:45 19:00 20:00 23:00 Temp 99.0 100.2 99.1 99.0 100.2 99.1 Pulse 111 102 99 Resp 20 20 20 B/P 115/65 102/54 117/63 Pulse Ox 95 95 94 O2 Delivery Room Air Room Air Room Air Room Air 06/06/16 06/06/16 06/06/16 06/06/16 03:00 07:45 08:00 08:06 Temp 98.9 98.6 98.9 98.6 Pulse 90 103 103 Resp 18 B/P 124/44 113/53 113/53 Pulse Ox 97 93 O2 Delivery Room Air Room Air Room Air 06/06/16 06/06/16 09:46 11:40 Temp 98.1 98.1 Pulse 97 B/P 106/54 Pulse Ox 93 O2 Delivery Room Air Room Air Intake and Output 06/05/16 06/05/16 06/06/16 15:00 23:00 07:00 Intake Total 250 ml 1240 ml 1090 ml Output Total 350 ml 300 ml Balance 250 ml 890 ml 790 ml ÓSCAR WHITE MD Jun 06, 2016 13:58
--- NOTE | 2016-06-06 13:58 | PDOC ---
Infectious Disease Note Subjective Subjective c/o mild pruritic rash, usually takes Benadryl at home Denies pain, SOA, wheezing ROS ROS GEN: Denies fevers, chills, sweats HEENT: Denies sore throat CV: Denies chest pain RESP: Denies cough GI: Denies n/v/d NEURO: Denies confusion, dizziness Vital Sign Vital Signs Vital Signs Date Time Temp Pulse Resp B/P Pulse Ox O2 Delivery O2 Flow Rate FiO2 06/06/16 11:40 98.1 97 106/54 93 Room Air 98.1 06/06/16 07:45 18 Physical Exam PHYSICAL EXAM GENERAL: ALert, NAD HEENT: OC/OP clear NECK: Supple LUNGS: Clear HEART: S1S2, no gallop, no murmur ABD: Obese, BS present, soft, NT EXT: No cyanosis. Right foot bandaged. LLE mildly erythematous and warm [employer]: Alert, 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, no focal neurologic deficit SKIN: Light erythematous rash of arms, abdomen & upper legs IV: ok Labs Lab Laboratory Tests Test 06/05/16 14:20 06/05/16 16:49 06/05/16 20:52 06/05/16 22:54 Glucose (Fingerstick) 242mg/dL (70-99) 127mg/dL (70-99) 110mg/dL (70-99) 69mg/dL (70-99) Test 06/06/16 04:12 06/06/16 07:48 06/06/16 11:20 White Blood Count 14.1x10^3/uL (4.0-11.0) Red Blood Count 3.26x10^6/uL (4.30-5.70) Hemoglobin 10.2g/dL (13.0-17.5) Hematocrit 30.2% (39.0-53.0) Mean Corpuscular Volume 93fL (79-100) Mean Corpuscular Hemoglobin 31pg (25-35) Mean Corpuscular Hemoglobin Concent 34g/dL (31-37) Red Cell Distribution Width 12.9% (11.5-14.5) Platelet Count 130x10^3/uL (140-400) Neutrophils (%) (Auto) 87% (31-73) Lymphocytes (%) (Auto) 7% (24-48) Monocytes (%) (Auto) 4% (0-9) Eosinophils (%) (Auto) 2% (0-3) Basophils (%) (Auto) 0% (0-3) Neutrophils # (Auto) 12.3x10^3uL (1.8-7.7) Lymphocytes # (Auto) 1.0x10^3/uL (1.0-4.8) Monocytes # (Auto) 0.6x10^3/uL (0.0-1.1) Eosinophils # (Auto) 0.2x10^3/uL (0.0-0.7) Basophils # (Auto) 0.0x10^3/uL (0.0-0.2) Sodium Level 134mmol/L (136-145) Potassium Level 4.4mmol/L (3.5-5.1) Chloride Level 103mmol/L (98-107) Carbon Dioxide Level 22mmol/L (21-32) Anion Gap 9 (6-14) Blood Urea Nitrogen 36mg/dL (8-26) Creatinine 2.8mg/dL (0.7-1.3) Estimated GFR (Cockcroft-Gault) 23.5 Glucose Level 196mg/dL (70-99) Calcium Level 7.7mg/dL (8.5-10.1) Phosphorus Level 3.1mg/dL (2.6-4.7) Magnesium Level 1.4mg/dL (1.8-2.4) Glucose (Fingerstick) 215mg/dL (70-99) 143mg/dL (70-99) Renal US IMPRESSION: Mass, most compatible with a cyst, off the inferior aspect of the left kidney. See above discussion Arterial study LE IMPRESSION: 1. Moderate scattered atherosclerotic plaquing in both lower extremities. 2. No evidence of high-grade femoral-popliteal stenosis on either side. 3. Probable moderate stenosis of the right anterior tibial artery with degradation of blood flow in the right dorsalis pedis artery. 4. Mild degradation of the left leg Doppler waveforms at and distal to the superficial femoral artery level. Micro BLD CULT RESULT 1 Preliminary Comment Beta hemolytic Streptococcus, group B Objective Assessment Strep sepsis - POA 06/04 Fever LLE cellulitis Left 5th toe ? abscess and med ankle wound Right 2 and 3 toe infections PAD EVON on CKD single kidney. followed by Dr. Masters Leukocytosis Rash Plan Plan of Care Change to Dapto times one, 06/05 F/u labs am Monitor rash Await vascular input Patient seen and examined. Chart reviewed. Case discussed with MEDICAL EDUCATION SPECIALIST. Agree with above plan. CBC/CRP in am. ROVERTO RAMIREZ APRN Jun 06, 2016 13:57 RO WATERMAN MD Jun 06, 2016 17:05
[2016-06-06] MEDS ORDERED: hydrALAZINE 20 MG/ML VIAL. IVP PRN (14:00)
[2016-06-06] MEDS ORDERED: TRAMADOL 50 MG TABLET. PO PRN (14:00)
[2016-06-06] MEDS ORDERED: ONDANSETRON PF 4 MG/2 ML VIAL. IV PRN (14:00)
[2016-06-06 15:00] VITALS: BP 97/53
[2016-06-06] MEDS: WARFARIN 7.5 MG TABLET. PO SCH (15:44)
--- NOTE | 2016-06-06 17:34 | RAD ---
PROCEDURE MRI right foot without contrast dated 06/06/2016. HISTORY Bilateral foot and toe cellulitis for 2 weeks. Multiple ulcers on toes and feet. TECHNIQUE Routine multiplanar multisequence MR imaging of the right foot performed. No contrast administered. COMPARISON FINDINGS: Hyperintense T2 signal throughout the subcutaneous tissues of the dorsal and plantar foot. There is also edema throughout the plantar foot musculature. Diffuse muscle atrophy. No well-circumscribed fluid collection to suggest abscess. There are some well-defined marginal erosions at the 1st metatarsal head dorsally with some overlying skin thickening. No significant bone marrow edema. Moderate degenerative change at the 1st MTP joint with associated full-thickness cartilage loss. There is a small skin ulcer at the distal phalanx of the 3rd toe that may involve the nailbed. No underlying osteomyelitis. Bone marrow signal is otherwise homogeneous. No periostitis or bone destruction. IMPRESSION - Well-defined marginal erosions at the 1st metatarsal head, nonspecific. Given the appearance, gout would not be a consideration. There is some overlying skin thickening without discrete ulcer. Osteomyelitis would be considered less likely. - Diffuse edema throughout the subcutaneous tissues and plantar foot musculature, nonspecific. This could represent cellulitis/myositis. Diabetic neurovascular edema is another consideration. - Generalized fatty atrophy of the plantar foot musculature. - Small ulcer at the tip of the 3rd distal phalanx with no underlying osteomyelitis. Electronically signed by: Mati Denney (Jun 06, 2016 17:33:36)
--- NOTE | 2016-06-06 17:44 | RAD ---
PROCEDURE MRI left foot without contrast dated 06/06/2016. HISTORY Bilateral foot and toe cellulitis for 2 weeks. History of diabetes. Multiple ulcers TECHNIQUE T1 and T2 weighted imaging performed in 3 planes to include the mid and forefoot region. No contrast administered. COMPARISON Opposite foot dated same day FINDINGS Diffuse increased T2 signal throughout the dorsal and plantar subcutaneous tissues and plantar foot musculature. Mild to moderate fatty atrophy of the plantar musculature. No well-circumscribed fluid collection to suggest abscess. Mild hypertrophic change of the 1st MTP joint. Tiny marginal erosion at the medial 1st metatarsal head. No significant overlying edema. Mild degenerative change at the interphalangeal joints and Lisfranc joints. There is some nonspecific edema within the medial cuneiform with degenerative change of the navicular cuneiform joint. Bone marrow signal is otherwise homogeneous. No bony destructive change or periostitis. Small area of skin induration over the DIP joint of the small toe without underlying bone marrow edema. IMPRESSION - Soft tissue edema at near the DIP joint of the small toe without convincing evidence of osteomyelitis. - Diffuse increased signal throughout the subcutaneous tissues and plantar foot musculature, nonspecific. This could be related to cellulitis/myositis. Diabetic neurovascular edema is another consideration. No evidence of abscess. - Degenerative changes as described above. Electronically signed by: Mati Denney (Jun 06, 2016 17:43:58)
[2016-06-06 19:00] VITALS: BP 96/66
--- NOTE | 2016-06-06 22:17 | CONS ---
DATE OF CONSULTATION: 06/06/2016 REASON FOR CONSULTATION: Bilateral lower extremity foot wounds. HISTORY OF PRESENT ILLNESS: A 55-year-old male with longstanding history of underlying diabetes, has developed bilateral lower extremity foot wounds. He has wounds on the dorsum of the second and third toe of the right foot, plantar surface of the first toe of the right foot and the malleolus of his left ankle. The patient was admitted to the hospital with fevers and chills. He had significantly elevated blood sugar at the time of his admission. The source for his infection is not clear. He has been treated with broad spectrum antibiotics and has improved. He is an insulin-dependent diabetic. His admission laboratory data showed a hemoglobin of 11, hematocrit 33, white blood cell count of 15,000. Sodium was low at 129, potassium 4.5, chloride 97, creatinine 2.2, blood sugar 577. Lactic acid level 1.9. His laboratory data today shows his creatinine remains elevated at 2.8. PHYSICAL EXAMINATION: Lying in bed, in no acute distress. Moderately overweight. Difficult to feel his femoral pulses secondary to abdominal girth. I cannot appreciate popliteal or pedal pulses. Feet are warm. He has venous stasis changes in a symmetrical fashion from the proximal calf all the way into his foot. No venous stasis ulceration, but palpable subcutaneous venous thromboses are noted. He has a superficial ulceration dorsum of the second and third toe of the right foot and on the plantar surface of the first toe. Also, he has an ulceration on the malleolus which is superficial in nature. His ultrasound examination shows mild disease on the left, moderate disease on the right. IMPRESSION: Longstanding history of underlying diabetes with peripheral neuropathy. Admitted with fevers, chills and hyperglycemia. This has improved with antibiotic therapy. The patient still has residual soft tissue ulcerations in his lower extremities, which do not appear to be severe at this time. He has noninvasive vascular studies which suggest that he does not have significant arterial disease, but sometimes this can be underestimated in the presence of longstanding diabetes. For now, would continue to treat him as he is being treated with antibiotic therapy, topical wound care therapy and management of his diabetes. I think a renal consult has been placed for his significantly elevated serum creatinine. It is noted that he had an ultrasound examination. He had a bladder , estimated at 700 mL. For now, continue current therapy. Thank you for this consult. JULIANNA HELTON MD DR: TRA/kayla JOB#: [id number] / [id number]
[2016-06-06 23:00] VITALS: BP 112/56
[2016-06-07] MEDS: IV 1/2 NORMAL SALINE 1,000 ML IV SCH ×4 (03:30→19:30)
[2016-06-07 04:15] LABS: CREATININE 2.8 mg/dL (0.7-1.3); GFR 23.5; MAGNESIUM 2.7 mg/dL (1.8-2.4)
[2016-06-07 04:21] LABS: INR 2.2 (0.8-1.1); PROTHROMBIN TIME PATIENT 22.9 SEC (11.7-14.0)
[2016-06-07] MEDS: diphenhydrAMINE HCL 25 MG CAPSULE PO PRN ×4 (06:17→21:33)
[2016-06-07] MEDS: LEVOTHYROXINE 125 MCG TABLET PO SCH (06:17)
[2016-06-07] MEDS: PIPERACILLIN/TAZOBACTAM 2.25 GM in IV NORMAL SALINE 50ML 50 ML IV SCH ×3 (06:17→17:49)
[2016-06-07 07:20] VITALS: BP 93/53
[2016-06-07] MEDS: INSULIN ASPART 300 UNITS/3 ML INSULN.PEN SQ SCH ×6 (07:30→17:21)
[2016-06-07] MEDS: predniSONE 5 MG TABLET PO SCH (08:44)
[2016-06-07] MEDS: FLUCONAZOLE 100 MG TABLET. PO SCH (08:44)
[2016-06-07] MEDS: GABAPENTIN 300 MG CAPSULE. PO SCH ×2 (08:44→15:34)
[2016-06-07] MEDS: INSULIN DETEMIR 300 UNITS/3 ML INSULN.PEN. SQ SCH ×2 (08:48→21:38)
[2016-06-07 08:58] LABS: BASO % 1 % (0-3); EOS % 3 % (0-3); HEMATOCRIT 31.5 % (39.0-53.0); HEMOGLOBIN 10.5 g/dL (13.0-17.5); LYMPH % 13 % (24-48); MEAN CORPUSCULAR HEMOGLOBIN 31 pg (25-35); MEAN CORPUSCULAR HGB CONC 33 g/dL (31-37); MEAN CORPUSCULAR VOLUME 93 fL (79-100); MONO % 6 % (0-9); NEUT % 77 % (31-73); PLATELET COUNT 152 x10^3/uL (140-400); RED BLOOD COUNT 3.39 x10^6/uL (4.30-5.70); RED CELL DISTRIBUTION WIDTH 13.3 % (11.5-14.5); WHITE BLOOD COUNT 7.7 x10^3/uL (4.0-11.0)
--- NOTE | 2016-06-07 10:06 | PDOC ---
Infectious Disease Note Subjective Subjective Persistent pruritic rash, usually takes 3-4 Benadryl a day at home Couldn't sleep Denies pain, SOA, wheezing Nosebleed earlier ROS ROS GEN: Denies fevers, chills, sweats CV: Denies chest pain RESP: Denies cough GI: Denies n/v/d Vital Sign Vital Signs Vital Signs Date Time Temp Pulse Resp B/P Pulse Ox O2 Delivery O2 Flow Rate FiO2 06/07/16 07:45 Room Air 06/07/16 07:20 98.6 86 18 93/53 94 98.6 Physical Exam PHYSICAL EXAM GENERAL: Alert, irritable HEENT: OC/OP clear NECK: Supple LUNGS: Clear, no wheezing, rhonchi or crackles HEART: S1S2, no gallop, no murmur ABD: Obese, BS present, soft, NT EXT: No cyanosis. BLE edema. Right foot bandaged. LLE mildly erythematous and warm, foot dressing intact. MANAGER PRESENTATION: Alert, 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, no focal neurologic deficit SKIN: Light erythematous rash of arms, abdomen & upper legs IV: ok Labs Lab Laboratory Tests Test 06/06/16 11:20 06/06/16 14:57 06/06/16 17:42 06/06/16 20:56 Glucose (Fingerstick) 143mg/dL (70-99) 105mg/dL (70-99) 117mg/dL (70-99) 70mg/dL (70-99) Test 06/07/16 03:10 06/07/16 07:24 White Blood Count 7.7x10^3/uL (4.0-11.0) Red Blood Count 3.39x10^6/uL (4.30-5.70) Hemoglobin 10.5g/dL (13.0-17.5) Hematocrit 31.5% (39.0-53.0) Mean Corpuscular Volume 93fL (79-100) Mean Corpuscular Hemoglobin 31pg (25-35) Mean Corpuscular Hemoglobin Concent 33g/dL (31-37) Red Cell Distribution Width 13.3% (11.5-14.5) Platelet Count 152x10^3/uL (140-400) Neutrophils (%) (Auto) 77% (31-73) Lymphocytes (%) (Auto) 13% (24-48) Monocytes (%) (Auto) 6% (0-9) Eosinophils (%) (Auto) 3% (0-3) Basophils (%) (Auto) 1% (0-3) Neutrophils # (Auto) 5.9x10^3uL (1.8-7.7) Lymphocytes # (Auto) 1.0x10^3/uL (1.0-4.8) Monocytes # (Auto) 0.5x10^3/uL (0.0-1.1) Eosinophils # (Auto) 0.3x10^3/uL (0.0-0.7) Basophils # (Auto) 0.0x10^3/uL (0.0-0.2) Prothrombin Time 22.9SEC (11.7-14.0) Prothromb Time International Ratio 2.2 (0.8-1.1) Sodium Level 140mmol/L (136-145) Potassium Level 5.0mmol/L (3.5-5.1) Chloride Level 107mmol/L (98-107) Carbon Dioxide Level 25mmol/L (21-32) Anion Gap 8 (6-14) Blood Urea Nitrogen 36mg/dL (8-26) Creatinine 2.8mg/dL (0.7-1.3) Estimated GFR (Cockcroft-Gault) 23.5 Glucose Level 91mg/dL (70-99) Calcium Level 8.0mg/dL (8.5-10.1) Magnesium Level 2.7mg/dL (1.8-2.4) C-Reactive Protein, Quantitative 107.9mg/L (0-3.3) Glucose (Fingerstick) 90mg/dL (70-99) Micro BLD CULT RESULT 1 Preliminary Comment Beta hemolytic Streptococcus, group B Objective Assessment Strep sepsis - POA 06/04 Fever. better LLE cellulitis Left 5th toe ? abscess and med ankle wound Right 2 and 3 toe infections PAD EVON on CKD single kidney. followed by Dr. Masters Leukocytosis, improved Rash. Warfarin therapy Plan Plan of Care Zosyn and fluconazole Dapto times one, 06/05 Monitor rash Await vascular input CRP 107.9 INR 2.2 .Patient seen and examined. Chart reviewed. Case d/w INS[employer]OR [employer]. Agree with above plan ROVERTO RAMIREZ [employer] Jun 07, 2016 10:06 RO WATERMAN MD Jun 07, 2016 15:55
--- NOTE | 2016-06-07 10:29 | PDOC ---
Renal-Progress Notes Subjective Notes Notes NONE History of Present Illness Hx of present illness STABLE Vitals Vitals Vital Signs Date Time Temp Pulse Resp B/P Pulse Ox O2 Delivery O2 Flow Rate FiO2 06/07/16 07:45 Room Air 06/07/16 07:20 98.6 86 18 93/53 94 98.6 Weight Weight [ ] I.O. Intake and Output Intake and Output 06/07/16 07:00 Intake Total 2460 ml Output Total 525 ml Balance 1935 ml Intake Oral 660 ml IV Total 1800 ml Output Urine Total 525 ml # Voids 4 Labs Labs Laboratory Tests Test 06/06/16 11:20 06/06/16 14:57 06/06/16 17:42 06/06/16 20:56 Glucose (Fingerstick) 143mg/dL (70-99) 105mg/dL (70-99) 117mg/dL (70-99) 70mg/dL (70-99) Test 06/07/16 03:10 06/07/16 07:24 White Blood Count 7.7x10^3/uL (4.0-11.0) Red Blood Count 3.39x10^6/uL (4.30-5.70) Hemoglobin 10.5g/dL (13.0-17.5) Hematocrit 31.5% (39.0-53.0) Mean Corpuscular Volume 93fL (79-100) Mean Corpuscular Hemoglobin 31pg (25-35) Mean Corpuscular Hemoglobin Concent 33g/dL (31-37) Red Cell Distribution Width 13.3% (11.5-14.5) Platelet Count 152x10^3/uL (140-400) Neutrophils (%) (Auto) 77% (31-73) Lymphocytes (%) (Auto) 13% (24-48) Monocytes (%) (Auto) 6% (0-9) Eosinophils (%) (Auto) 3% (0-3) Basophils (%) (Auto) 1% (0-3) Neutrophils # (Auto) 5.9x10^3uL (1.8-7.7) Lymphocytes # (Auto) 1.0x10^3/uL (1.0-4.8) Monocytes # (Auto) 0.5x10^3/uL (0.0-1.1) Eosinophils # (Auto) 0.3x10^3/uL (0.0-0.7) Basophils # (Auto) 0.0x10^3/uL (0.0-0.2) Prothrombin Time 22.9SEC (11.7-14.0) Prothromb Time International Ratio 2.2 (0.8-1.1) Sodium Level 140mmol/L (136-145) Potassium Level 5.0mmol/L (3.5-5.1) Chloride Level 107mmol/L (98-107) Carbon Dioxide Level 25mmol/L (21-32) Anion Gap 8 (6-14) Blood Urea Nitrogen 36mg/dL (8-26) Creatinine 2.8mg/dL (0.7-1.3) Estimated GFR (Cockcroft-Gault) 23.5 Glucose Level 91mg/dL (70-99) Calcium Level 8.0mg/dL (8.5-10.1) Magnesium Level 2.7mg/dL (1.8-2.4) C-Reactive Protein, Quantitative 107.9mg/L (0-3.3) Glucose (Fingerstick) 90mg/dL (70-99) Micro Micro Microbiology 06/04/16 Blood Culture - Final, Complete 06/04/16 Blood Culture Result 1 (LEIDY) - Final, Complete Review of Systems Constitutional: yes: no symptom reported Physical Exam General Appearance: no apparent distress Skin: warm Respiratory: bilateral CTA Heart: S1S2 Abdomen: soft, bowel sounds present Extremities: pulses present Neurology: alert Musculoskeletal: low back pain Assessment Assessment IMP STREP SEPSIS LLE CELLULITIS SINGLE KIDNEY ACUTE RENAL FAILURE-CR 3.0 TO 2.8 LOW MAG-CORRECTED CKD STAGE 3 WITH CR OF 1.7 PLAN CONT WITH IVF'S CONT TO HOLD LOSARTAN CONT ANTIBIOTICS JAEL MAK MD Jun 07, 2016 10:28
[2016-06-07 10:50] VITALS: BP 119/72
--- NOTE | 2016-06-07 13:26 | PDOC ---
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 vs. dry skin plan: fu with id, renal, vascular not sure if podiatry will come to see pt , no notes, may need debride the wound right foot MRI ruled out osteo cont iv abx for now ivf, hold acei decrease aspart to 20u tid, levemir decrease to 30u daily, 20u qhs, SSI. wound care ptot replete Mag warfarin, INR daily bladder scan, notice 700cc urine in US. History of Present Illness History of Present Illness pt not seeing podiatry for years, with chronic bl foot wound not check his glucose at home too low Mag severe upper body with upper ext itchyness, pt had it before, with dry skin, mild erythma , not responding to benadryl Vitals Vitals Vital Signs Date Time Temp Pulse Resp B/P Pulse Ox O2 Delivery O2 Flow Rate FiO2 06/07/16 10:50 97.4 85 18 119/72 93 Room Air 97.4 Physical Exam General: Alert, Oriented X3, Cooperative, mild distress Heart: Regular rate, Normal S1, Normal S2 Lungs: Clear Abdomen: Normal bowel sounds, Soft Extremities: No cyanosis, No edema, Other (right foot has dreesing on. from pic looks severe erythema on toes with ulcer) Skin: Other (small 1.5 cm plantar lefion left foot, calloused, ) Labs LABS Laboratory Tests Test 06/06/16 14:57 06/06/16 17:42 06/06/16 20:56 06/07/16 03:10 Glucose (Fingerstick) 105mg/dL (70-99) 117mg/dL (70-99) 70mg/dL (70-99) White Blood Count 7.7x10^3/uL (4.0-11.0) Red Blood Count 3.39x10^6/uL (4.30-5.70) Hemoglobin 10.5g/dL (13.0-17.5) Hematocrit 31.5% (39.0-53.0) Mean Corpuscular Volume 93fL (79-100) Mean Corpuscular Hemoglobin 31pg (25-35) Mean Corpuscular Hemoglobin Concent 33g/dL (31-37) Red Cell Distribution Width 13.3% (11.5-14.5) Platelet Count 152x10^3/uL (140-400) Neutrophils (%) (Auto) 77% (31-73) Lymphocytes (%) (Auto) 13% (24-48) Monocytes (%) (Auto) 6% (0-9) Eosinophils (%) (Auto) 3% (0-3) Basophils (%) (Auto) 1% (0-3) Neutrophils # (Auto) 5.9x10^3uL (1.8-7.7) Lymphocytes # (Auto) 1.0x10^3/uL (1.0-4.8) Monocytes # (Auto) 0.5x10^3/uL (0.0-1.1) Eosinophils # (Auto) 0.3x10^3/uL (0.0-0.7) Basophils # (Auto) 0.0x10^3/uL (0.0-0.2) Prothrombin Time 22.9SEC (11.7-14.0) Prothromb Time International Ratio 2.2 (0.8-1.1) Sodium Level 140mmol/L (136-145) Potassium Level 5.0mmol/L (3.5-5.1) Chloride Level 107mmol/L (98-107) Carbon Dioxide Level 25mmol/L (21-32) Anion Gap 8 (6-14) Blood Urea Nitrogen 36mg/dL (8-26) Creatinine 2.8mg/dL (0.7-1.3) Estimated GFR (Cockcroft-Gault) 23.5 Glucose Level 91mg/dL (70-99) Calcium Level 8.0mg/dL (8.5-10.1) Magnesium Level 2.7mg/dL (1.8-2.4) C-Reactive Protein, Quantitative 107.9mg/L (0-3.3) Test 06/07/16 07:24 06/07/16 11:44 Glucose (Fingerstick) 90mg/dL (70-99) 163mg/dL (70-99) Review of Systems Review of Systems no fever, chills, sob or chest pain Assessment and Plan Assessmemt and Plan Problems Medical Problems: (1) Diabetic foot ulcer Status: Acute (2) Hyperglycemia Status: Acute (3) Pancreatitis Status: Acute (4) Sepsis Status: Acute Problems: Comment Review of Relevant I have reviewed the following items randy (where applicable) has been applied. Labs Laboratory Tests Test 06/05/16 14:20 06/05/16 16:49 06/05/16 20:52 06/05/16 22:54 Glucose (Fingerstick) 242mg/dL (70-99) 127mg/dL (70-99) 110mg/dL (70-99) 69mg/dL (70-99) Test 06/06/16 04:12 06/06/16 07:48 06/06/16 11:20 06/06/16 14:57 White Blood Count 14.1x10^3/uL (4.0-11.0) Red Blood Count 3.26x10^6/uL (4.30-5.70) Hemoglobin 10.2g/dL (13.0-17.5) Hematocrit 30.2% (39.0-53.0) Mean Corpuscular Volume 93fL (79-100) Mean Corpuscular Hemoglobin 31pg (25-35) Mean Corpuscular Hemoglobin Concent 34g/dL (31-37) Red Cell Distribution Width 12.9% (11.5-14.5) Platelet Count 130x10^3/uL (140-400) Neutrophils (%) (Auto) 87% (31-73) Lymphocytes (%) (Auto) 7% (24-48) Monocytes (%) (Auto) 4% (0-9) Eosinophils (%) (Auto) 2% (0-3) Basophils (%) (Auto) 0% (0-3) Neutrophils # (Auto) 12.3x10^3uL (1.8-7.7) Lymphocytes # (Auto) 1.0x10^3/uL (1.0-4.8) Monocytes # (Auto) 0.6x10^3/uL (0.0-1.1) Eosinophils # (Auto) 0.2x10^3/uL (0.0-0.7) Basophils # (Auto) 0.0x10^3/uL (0.0-0.2) Sodium Level 134mmol/L (136-145) Potassium Level 4.4mmol/L (3.5-5.1) Chloride Level 103mmol/L (98-107) Carbon Dioxide Level 22mmol/L (21-32) Anion Gap 9 (6-14) Blood Urea Nitrogen 36mg/dL (8-26) Creatinine 2.8mg/dL (0.7-1.3) Estimated GFR (Cockcroft-Gault) 23.5 Glucose Level 196mg/dL (70-99) Calcium Level 7.7mg/dL (8.5-10.1) Phosphorus Level 3.1mg/dL (2.6-4.7) Magnesium Level 1.4mg/dL (1.8-2.4) Glucose (Fingerstick) 215mg/dL (70-99) 143mg/dL (70-99) 105mg/dL (70-99) Test 06/06/16 17:42 06/06/16 20:56 06/07/16 03:10 06/07/16 07:24 Glucose (Fingerstick) 117mg/dL (70-99) 70mg/dL (70-99) 90mg/dL (70-99) White Blood Count 7.7x10^3/uL (4.0-11.0) Red Blood Count 3.39x10^6/uL (4.30-5.70) Hemoglobin 10.5g/dL (13.0-17.5) Hematocrit 31.5% (39.0-53.0) Mean Corpuscular Volume 93fL (79-100) Mean Corpuscular Hemoglobin 31pg (25-35) Mean Corpuscular Hemoglobin Concent 33g/dL (31-37) Red Cell Distribution Width 13.3% (11.5-14.5) Platelet Count 152x10^3/uL (140-400) Neutrophils (%) (Auto) 77% (31-73) Lymphocytes (%) (Auto) 13% (24-48) Monocytes (%) (Auto) 6% (0-9) Eosinophils (%) (Auto) 3% (0-3) Basophils (%) (Auto) 1% (0-3) Neutrophils # (Auto) 5.9x10^3uL (1.8-7.7) Lymphocytes # (Auto) 1.0x10^3/uL (1.0-4.8) Monocytes # (Auto) 0.5x10^3/uL (0.0-1.1) Eosinophils # (Auto) 0.3x10^3/uL (0.0-0.7) Basophils # (Auto) 0.0x10^3/uL (0.0-0.2) Prothrombin Time 22.9SEC (11.7-14.0) Prothromb Time International Ratio 2.2 (0.8-1.1) Sodium Level 140mmol/L (136-145) Potassium Level 5.0mmol/L (3.5-5.1) Chloride Level 107mmol/L (98-107) Carbon Dioxide Level 25mmol/L (21-32) Anion Gap 8 (6-14) Blood Urea Nitrogen 36mg/dL (8-26) Creatinine 2.8mg/dL (0.7-1.3) Estimated GFR (Cockcroft-Gault) 23.5 Glucose Level 91mg/dL (70-99) Calcium Level 8.0mg/dL (8.5-10.1) Magnesium Level 2.7mg/dL (1.8-2.4) C-Reactive Protein, Quantitative 107.9mg/L (0-3.3) Test 06/07/16 11:44 Glucose (Fingerstick) 163mg/dL (70-99) Laboratory Tests Test 06/06/16 14:57 06/06/16 17:42 06/06/16 20:56 06/07/16 03:10 Glucose (Fingerstick) 105mg/dL (70-99) 117mg/dL (70-99) 70mg/dL (70-99) White Blood Count 7.7x10^3/uL (4.0-11.0) Red Blood Count 3.39x10^6/uL (4.30-5.70) Hemoglobin 10.5g/dL (13.0-17.5) Hematocrit 31.5% (39.0-53.0) Mean Corpuscular Volume 93fL (79-100) Mean Corpuscular Hemoglobin 31pg (25-35) Mean Corpuscular Hemoglobin Concent 33g/dL (31-37) Red Cell Distribution Width 13.3% (11.5-14.5) Platelet Count 152x10^3/uL (140-400) Neutrophils (%) (Auto) 77% (31-73) Lymphocytes (%) (Auto) 13% (24-48) Monocytes (%) (Auto) 6% (0-9) Eosinophils (%) (Auto) 3% (0-3) Basophils (%) (Auto) 1% (0-3) Neutrophils # (Auto) 5.9x10^3uL (1.8-7.7) Lymphocytes # (Auto) 1.0x10^3/uL (1.0-4.8) Monocytes # (Auto) 0.5x10^3/uL (0.0-1.1) Eosinophils # (Auto) 0.3x10^3/uL (0.0-0.7) Basophils # (Auto) 0.0x10^3/uL (0.0-0.2) Prothrombin Time 22.9SEC (11.7-14.0) Prothromb Time International Ratio 2.2 (0.8-1.1) Sodium Level 140mmol/L (136-145) Potassium Level 5.0mmol/L (3.5-5.1) Chloride Level 107mmol/L (98-107) Carbon Dioxide Level 25mmol/L (21-32) Anion Gap 8 (6-14) Blood Urea Nitrogen 36mg/dL (8-26) Creatinine 2.8mg/dL (0.7-1.3) Estimated GFR (Cockcroft-Gault) 23.5 Glucose Level 91mg/dL (70-99) Calcium Level 8.0mg/dL (8.5-10.1) Magnesium Level 2.7mg/dL (1.8-2.4) C-Reactive Protein, Quantitative 107.9mg/L (0-3.3) Test 06/07/16 07:24 06/07/16 11:44 Glucose (Fingerstick) 90mg/dL (70-99) 163mg/dL (70-99) Microbiology 06/04/16 Blood Culture - Final, Complete 06/04/16 Blood Culture Result 1 (LEIDY) - Final, Complete Medications Current Medications Sodium Chloride (Iv Sodium Chloride 0.9% 1000ml Bag) 1,000 ml @ 3,510 mls/hr Q18M IV Last administered on 06/04/16 03:55; Start 06/04/16 at 21:38; Stop at 22:38; Status DC Morphine Sulfate 4 mg PRN Q15MIN PRN IV/SQ PAIN GREATER THAN 3/10 Last administered on 06/04/16 22:07; Start 06/04/16 at 21:45; Stop 06/05/16 at 21:44 ; Status DC Ondansetron HCl (Zofran) 4 mg 1X ONCE IV Last administered on 06/04/16 22:07 ; Start 06/04/16 at 21:45; Stop 06/04/16 at 21:46; Status DC Acetaminophen (Tylenol) 650 mg 1X ONCE PO Last administered on 06/04/16 22:07 ; Start 06/04/16 at 21:45; Stop 06/04/16 at 21:46; Status DC Ondansetron HCl (Zofran) 4 mg PRN Q8HRS PRN IV NAUSEA/VOMITING; Start 06/04/16 at 23:45; Stop 06/05/16 at 23:44; Status DC Morphine Sulfate 4 mg 4 mg PRN Q2HR PRN IV PAIN Last administered on 06/05/16 05:35; Start 06/04/16 at 23:45; Stop 06/05/16 at 23:44; Status DC Sodium Chloride (Iv Sodium Chloride 0.9% 1000ml Bag) 1,000 ml @ 125 mls/hr Q8H IV Last administered on 06/04/16 01:30; Start 06/04/16 at 23:45; Stop at 11:18; Status DC Acetaminophen 650 mg 650 mg PRN Q4HRS PRN PO FEVER Last administered on 02:24; Start 06/04/16 at 23:45; Stop 06/05/16 at 23:44; Status DC Insulin Human Regular 150 ml @ 0 mls/hr 1X ONCE IV Last administered on 02:46; Start 06/05/16 at 00:00; Stop 06/05/16 at 08:26; Status DC Ceftriaxone Sodium/Sodium Chloride (Rocephin/Iv Sodium Chloride 0.9% 50ml) 50 ml @ 100 mls/hr Q24H IV Last administered on 06/05/16 00:00; Start 06/05/16 at 00:00; Stop 06/05/16 at 09:43; Status DC Levothyroxine Sodium (Synthroid) 100 mcg DAILY07 PO Last administered on 08:54; Start 06/05/16 at 08:15; Stop 06/05/16 at 20:29; Status DC Warfarin Sodium (Coumadin Per Pharmacy) 1 each PRN DAILY PRN MC SEE COMMENTS Last administered on 06/07/16 08:07; Start 06/05/16 at 08:15 Insulin Detemir (Levemir) 25 units QHS SQ ; Start 06/05/16 at 21:00; Stop at 11:27; Status DC Insulin Detemir (Levemir) 40 units DAILY08 SQ Last administered on 06/06/16 08 :14; Start 06/05/16 at 08:15; Stop 06/06/16 at 11:27; Status DC Insulin Aspart (Novolog) 30 units TIDAC SQ Last administered on 06/06/16 17:48 ; Start 06/05/16 at 08:30; Stop 06/07/16 at 11:23; Status DC Insulin Aspart (Novolog) 0-9 UNITS TIDWMEALS SQ ; Start 06/05/16 at 12:00 Dextrose (Dextrose 50%-Water Syringe) 12.5 gm PRN Q15MIN PRN IV SEE COMMENTS; Start 06/05/16 at 08:15 Heparin Sodium (Porcine) 5000 unit 5,000 unit Q12HR SQ Last administered on 08:13; Start 06/05/16 at 09:00; Stop 06/06/16 at 13:45; Status DC Piperacillin Sod/ Tazobactam Sod 2.25 gm/Sodium Chloride 50 ml @ 100 mls/hr Q6HRS IV Last administered on 06/07/16 12:17; Start 06/05/16 at 12:00 Daptomycin/Sodium Chloride (Cubicin/Iv Sodium Chloride 0.9% 50ml) 50 ml @ 100 mls/hr ONCE ONCE IV Last administered on 06/05/16 10:34; Start 06/05/16 at 10 :30; Stop 06/05/16 at 10:59; Status DC Fluconazole 100 mg 100 mg DAILY PO Last administered on 06/07/16 08:44; Start 06/05/16 at 10:00 Sodium Chloride 1,000 ml @ 125 mls/hr Q8H IV ; Start 06/05/16 at 11:30; Status UNV Sodium Chloride (Iv Sodium Chloride 0.45%) 1,000 ml @ 125 mls/hr Q8H IV Last administered on 06/07/16 06:17; Start 06/05/16 at 11:30 Warfarin Sodium (Coumadin) 5 mg QMWF PO Last administered on 06/05/16 17:27; Start 06/05/16 at 17:00 Warfarin Sodium (Coumadin) 7.5 mg QTUTHSASU PO Last administered on 06/06/16 15:44; Start 06/06/16 at 16:00 Levothyroxine Sodium (Synthroid) 125 mcg DAILY07 PO Last administered on 06:17; Start 06/06/16 at 07:00 Prednisone (Prednisone) 5 mg DAILY PO Last administered on 06/07/16 08:44; Start 06/06/16 at 09:00 Tramadol HCl (Ultram) 50 mg PRN Q6HRS PRN PO pain; Start 06/05/16 at 19:00; Stop 06/06/16 at 13:55; Status DC Gabapentin (Neurontin) 600 mg BID94 PO Last administered on 06/07/16 08:44; Start 06/05/16 at 21:00 Losartan Potassium (Cozaar) 100 mg DAILY PO Last administered on 06/06/16 08: 06; Start 06/06/16 at 09:00; Stop 06/06/16 at 13:45; Status DC Calcium Carbonate/ Glycine (Tums) 500 mg PRN AFTMEALHC PRN PO INDIGESTION; Start 06/05/16 at 19:00 Acetaminophen (Tylenol) 650 mg PRN Q6HRS PRN PO PAIN Last administered on 06:36; Start 06/06/16 at 04:30 Diphenhydramine HCl (Benadryl) 25 mg PRN Q6HRS PRN PO ITCHING Last administered on 06/07/16 06:17; Start 06/06/16 at 10:45 Insulin Detemir (Levemir) 30 units DAILY08 SQ Last administered on 06/07/16 08 :48; Start 06/07/16 at 08:00 Insulin Detemir 20 units 20 units QHS SQ Last administered on 06/06/16 21:00; Start 06/06/16 at 21:00 Magnesium Sulfate/ Dextrose 100 ml @ 25 mls/hr 1X ONCE IV Last administered on 06/06/16 12:19; Start 06/06/16 at 11:45; Stop 06/06/16 at 15:44; Status DC Magnesium Sulfate/ Dextrose (Magnesium Sulfate PREMIX 2GM) 50 ml @ 25 mls/hr 1X ONCE IV ; Start 06/06/16 at 12:30; Stop 06/06/16 at 14:29; Status Cancel Hydralazine HCl (Apresoline) 10 mg PRN Q4HRS PRN IVP ELEVATED BP, SEE COMMENTS ; Start 06/06/16 at 14:00 Ondansetron HCl (Zofran) 4 mg PRN Q6HRS PRN IV NAUSEA/VOMITING; Start 06/06/16 at 14:00 Tramadol HCl (Ultram) 50 mg PRN Q6HRS PRN PO PAIN; Start 06/06/16 at 14:00 Insulin Aspart (Novolog) 20 units TIDAC SQ Last administered on 06/07/16 12:20 ; Start 06/07/16 at 11:30 Active Scripts Active Reported Novolin N (Nph, Human Insulin Isophane) 100 Unit/1 Ml Vial 20-25 Unit SQ QHS Novolog (Insulin Aspart) 100 Unit/1 Ml Cartridge 30 Unit SQ TIDWMEALS Triamcinolone Acetonide 0.1% Cream (Triamcinolone Acetonide) 15 Gm Cream..g. 1 Miles TP Tramadol Hcl 50 Mg Tablet 1 Tab PO PRN Q6HRS Calcium (Calcium Carbonate) 600 Mg Tablet 1,200 Mg PO Warfarin Sodium 7.5 Mg Tablet 7.5 Mg PO QTUTHSASU Warfarin Sodium 5 Mg Tablet 1 Tab PO QMWF Daily Multiple Vitamin (Multivitamin) 1 Each Tablet 1 Each PO Gabapentin 600 Mg Tablet 1,200 Mg PO HS Gabapentin 600 Mg Tablet 600 Mg PO BID94 Losartan Potassium 100 Mg Tablet 100 Mg PO DAILY Prednisone 1 Mg Tablet 4 Tab PO DAILY Levothyroxine Sodium 125 Mcg Tablet 1 Tab PO DAILY Vitals/I & O Vital Sign - Last 24 Hours 06/06/16 06/06/16 06/06/16 06/06/16 15:00 19:00 19:38 23:00 Temp 98.6 98.2 98.2 98.6 98.2 98.2 Pulse 98 91 87 Resp B/P 97/53 96/66 112/56 Pulse Ox 93 94 93 O2 Delivery Room Air Room Air Room Air Room Air 06/07/16 06/07/16 06/07/16 07:20 07:45 10:50 Temp 98.6 97.4 98.6 97.4 Pulse 86 85 Resp B/P 93/53 119/72 Pulse Ox 94 93 O2 Delivery Room Air Room Air Room Air Intake and Output 06/06/16 06/06/16 06/07/16 15:00 23:00 07:00 Intake Total 480 ml 180 ml 1800 ml Output Total 525 ml Balance -45 ml 180 ml 1800 ml ÓSCAR WHITE MD Jun 07, 2016 13:26
[2016-06-07 15:30] VITALS: BP 121/75
[2016-06-07] MEDS: WARFARIN 7.5 MG TABLET. PO SCH (15:34)
[2016-06-07 19:00] VITALS: BP 109/67
[2016-06-07] MEDS: TAMSULOSIN 0.4 MG CAP.ER.24H. PO SCH (21:33)
[2016-06-07 23:00] VITALS: BP 111/57
[2016-06-08] MEDS: PIPERACILLIN/TAZOBACTAM 2.25 GM in IV NORMAL SALINE 50ML 50 ML IV SCH ×2 (00:25→05:55)
[2016-06-08 03:00] VITALS: BP 124/66
[2016-06-08] MEDS: IV 1/2 NORMAL SALINE 1,000 ML IV SCH ×3 (03:30→19:27)
[2016-06-08 05:04] LABS: CALCIUM 8.2 mg/dL (8.5-10.1); CREATININE 2.2 mg/dL (0.7-1.3); POTASSIUM 4.3 mmol/L (3.5-5.1)
[2016-06-08] MEDS: LEVOTHYROXINE 125 MCG TABLET PO SCH (05:54)
[2016-06-08] MEDS: diphenhydrAMINE HCL 25 MG CAPSULE PO PRN ×2 (05:56→17:06)
[2016-06-08 06:40] LABS: BASO % 1 % (0-3); EOS % 4 % (0-3); HEMATOCRIT 30.8 % (39.0-53.0); HEMOGLOBIN 10.3 g/dL (13.0-17.5); LYMPH # 1.1 x10^3/uL (1.0-4.8); LYMPH % 14 % (24-48); MEAN CORPUSCULAR HEMOGLOBIN 31 pg (25-35); MEAN CORPUSCULAR HGB CONC 33 g/dL (31-37); MEAN CORPUSCULAR VOLUME 92 fL (79-100); MONO % 8 % (0-9); NEUT % 73 % (31-73); PLATELET COUNT 163 x10^3/uL (140-400); RED BLOOD COUNT 3.33 x10^6/uL (4.30-5.70); RED CELL DISTRIBUTION WIDTH 13.2 % (11.5-14.5); WHITE BLOOD COUNT 7.8 x10^3/uL (4.0-11.0)
[2016-06-08 07:36] VITALS: BP 119/64
[2016-06-08] MEDS: INSULIN ASPART 300 UNITS/3 ML INSULN.PEN SQ SCH ×6 (08:00→16:55)
[2016-06-08] MEDS: FLUCONAZOLE 100 MG TABLET. PO SCH (09:19)
[2016-06-08] MEDS: GABAPENTIN 300 MG CAPSULE. PO SCH ×2 (09:19→16:48)
[2016-06-08] MEDS: predniSONE 5 MG TABLET PO SCH (09:19)
[2016-06-08] MEDS: INSULIN DETEMIR 300 UNITS/3 ML INSULN.PEN. SQ SCH ×2 (09:32→20:58)
[2016-06-08 10:30] VITALS: BP 119/56
--- NOTE | 2016-06-08 11:30 | PDOC ---
Infectious Disease Note Subjective Subjective Persistent pruritic rash, usually takes 3-4 Benadryl a day at home Couldn't sleep Denies pain, SOA, wheezing Nosebleed earlier ROS ROS GEN: Denies fevers, chills, sweats HEENT: Denies blurred vision, sore throat CV: Denies chest pain RESP: Denies shortness of air, cough GI: Denies n/v/d NEURO: Denies confusion, dizziness MSK: Denies weakness, joint pain/swelling Vital Sign Vital Signs Vital Signs Date Time Temp Pulse Resp B/P Pulse Ox O2 Delivery O2 Flow Rate FiO2 06/08/16 10:30 98.0 92 12 119/56 96 Room Air 98.0 Physical Exam PHYSICAL EXAM GENERAL: NAD, Alert, in chair HEENT: PERRL, OC/OP - clear NECK: Supple, no JVD, no LN LUNGS: Clear HEART: S1S2, no gallop, no murmur ABD: Soft, NT, no organomegaly, no rebound, obese [place] EXT: No edema, no cyanosis 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, 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, no focal neurologic deficit SKIN: light macular rash trunk and upper thighs IV: ok Labs Lab Laboratory Tests Test 06/07/16 11:44 06/07/16 16:38 06/07/16 21:31 06/08/16 04:15 Glucose (Fingerstick) 163mg/dL (70-99) 132mg/dL (70-99) 145mg/dL (70-99) White Blood Count 7.8x10^3/uL (4.0-11.0) Red Blood Count 3.33x10^6/uL (4.30-5.70) Hemoglobin 10.3g/dL (13.0-17.5) Hematocrit 30.8% (39.0-53.0) Mean Corpuscular Volume 92fL (79-100) Mean Corpuscular Hemoglobin 31pg (25-35) Mean Corpuscular Hemoglobin Concent 33g/dL (31-37) Red Cell Distribution Width 13.2% (11.5-14.5) Platelet Count 163x10^3/uL (140-400) Neutrophils (%) (Auto) 73% (31-73) Lymphocytes (%) (Auto) 14% (24-48) Monocytes (%) (Auto) 8% (0-9) Eosinophils (%) (Auto) 4% (0-3) Basophils (%) (Auto) 1% (0-3) Neutrophils # (Auto) 5.7x10^3uL (1.8-7.7) Lymphocytes # (Auto) 1.1x10^3/uL (1.0-4.8) Monocytes # (Auto) 0.6x10^3/uL (0.0-1.1) Eosinophils # (Auto) 0.3x10^3/uL (0.0-0.7) Basophils # (Auto) 0.0x10^3/uL (0.0-0.2) Sodium Level 144mmol/L (136-145) Potassium Level 4.3mmol/L (3.5-5.1) Chloride Level 111mmol/L (98-107) Carbon Dioxide Level 24mmol/L (21-32) Anion Gap 9 (6-14) Blood Urea Nitrogen 25mg/dL (8-26) Creatinine 2.2mg/dL (0.7-1.3) Estimated GFR (Cockcroft-Gault) 31.0 Glucose Level 127mg/dL (70-99) Calcium Level 8.2mg/dL (8.5-10.1) Test 06/08/16 08:04 Glucose (Fingerstick) 109mg/dL (70-99) Objective Assessment Strep sepsis - POA 06/04. Group B Fever LLE cellulitis Left 5th toe ? abscess and med ankle wound Right 2 and 3 toe infections ? PAD EVON on CKD single kidney. followed by Dr. Masters Leukocytosis Plan Plan of Care D/c Zosyn with itch Dose Rocephin and monitor Will need to monitor INR with fluconazole and coumadin Dapto times one, 06/05 Monitor rash Await further vascular input VINCE LEBLANC MD Jun 08, 2016 11:30
[2016-06-08 15:00] VITALS: BP 142/80
[2016-06-08] MEDS: WARFARIN 5 MG TABLET. PO SCH (16:48)
--- NOTE | 2016-06-08 17:59 | PDOC ---
PROGRESS NOTES Chief Complaint Chief Complaint Toe cellulitis Sepsis ASSESSMENT AND PLAN: 1. Sepsis: Group B Strep isolated. 2. L toe/foot cellulitis: ? abscess 5th toe, no osteo per MRI. on ceftriax and diflucan 3. R toe infect: see [2.] 4. Leukocytosis: reactive 2/2 infect. resolved 5. Rash: ?drug rxn. Zosyn switched to ceftriax by Dr Lou. symptomatic benadryl prn. recent hx [place] Joel 2/2 allopurinol, acc to pt 6. PAD: unclear extent; arteriograms not feasible with current renal status. see note Dr Odonnell 7. EVON on CKD4: vasomotor etiology; suspect back to baseline creat. single kidney. followed by Dr. Masters 8. DM2: well controlled on current regimen 9. HTN: well controlled. cont current regimen 9. HLD: on statin 10. hx recurrent DVT: on coumadin; monitor INR closely: fluconazole may increase cont iv abx for now ivf, hold acei decrease aspart to 20u tid, levemir decrease to 30u daily, 20u qhs, SSI. wound care ptot replete Mag warfarin, INR daily bladder scan, notice 700cc urine in US. History of Present Illness History of Present Illness c/o very itchy rash, has excoriations. all over. benadryl only marginally helping. Vitals Vitals Vital Signs Date Time Temp Pulse Resp B/P Pulse Ox O2 Delivery O2 Flow Rate FiO2 06/08/16 15:00 98.2 93 21 142/80 94 Room Air 98.2 Physical Exam General: Alert, Oriented X3, Cooperative, mild distress Heart: Regular rate, Normal S1, Normal S2 Lungs: Clear Abdomen: Normal bowel sounds, Soft Extremities: No cyanosis, No edema Labs LABS Laboratory Tests Test 06/07/16 21:31 06/08/16 04:15 06/08/16 08:04 06/08/16 12:05 Glucose (Fingerstick) 145mg/dL (70-99) 109mg/dL (70-99) 125mg/dL (70-99) White Blood Count 7.8x10^3/uL (4.0-11.0) Red Blood Count 3.33x10^6/uL (4.30-5.70) Hemoglobin 10.3g/dL (13.0-17.5) Hematocrit 30.8% (39.0-53.0) Mean Corpuscular Volume 92fL (79-100) Mean Corpuscular Hemoglobin 31pg (25-35) Mean Corpuscular Hemoglobin Concent 33g/dL (31-37) Red Cell Distribution Width 13.2% (11.5-14.5) Platelet Count 163x10^3/uL (140-400) Neutrophils (%) (Auto) 73% (31-73) Lymphocytes (%) (Auto) 14% (24-48) Monocytes (%) (Auto) 8% (0-9) Eosinophils (%) (Auto) 4% (0-3) Basophils (%) (Auto) 1% (0-3) Neutrophils # (Auto) 5.7x10^3uL (1.8-7.7) Lymphocytes # (Auto) 1.1x10^3/uL (1.0-4.8) Monocytes # (Auto) 0.6x10^3/uL (0.0-1.1) Eosinophils # (Auto) 0.3x10^3/uL (0.0-0.7) Basophils # (Auto) 0.0x10^3/uL (0.0-0.2) Sodium Level 144mmol/L (136-145) Potassium Level 4.3mmol/L (3.5-5.1) Chloride Level 111mmol/L (98-107) Carbon Dioxide Level 24mmol/L (21-32) Anion Gap 9 (6-14) Blood Urea Nitrogen 25mg/dL (8-26) Creatinine 2.2mg/dL (0.7-1.3) Estimated GFR (Cockcroft-Gault) 31.0 Glucose Level 127mg/dL (70-99) Calcium Level 8.2mg/dL (8.5-10.1) Test 06/08/16 16:39 Glucose (Fingerstick) 154mg/dL (70-99) DEBORAH ORNELAS MD Jun 08, 2016 17:59
[2016-06-08 19:00] VITALS: BP 145/76
[2016-06-08] MEDS: TAMSULOSIN 0.4 MG CAP.ER.24H. PO SCH (20:56)
[2016-06-08 23:00] VITALS: BP 146/58
--- NOTE | 2016-06-08 23:46 | PDOC ---
Provider Note Provider Note RENAL F/U: MELODY. S : No new c/o O : Alert. VSS. Afebrile. Somnolent. Neck : Supple Lungs : Decreased bases CVS : RRR Abd: Soft, benign in appearance. Portly Ext: Stable edema Neuro : Grossly intact. A/P: ANEMIA HTN CKD PVD Supportive care Labs I/Os Abx ? reaction to ZOSYN. Changed by ID CPM. REGINA OLIVER MD Jun 08, 2016 23:46
[2016-06-09 03:00] VITALS: BP 128/49
[2016-06-09 07:00] VITALS: BP 139/81
[2016-06-09 07:16] LABS: BASO % 1 % (0-3); EOS % 7 % (0-3); HEMATOCRIT 33.7 % (39.0-53.0); HEMOGLOBIN 11.3 g/dL (13.0-17.5); LYMPH # 1.5 x10^3/uL (1.0-4.8); LYMPH % 23 % (24-48); MEAN CORPUSCULAR HEMOGLOBIN 31 pg (25-35); MEAN CORPUSCULAR HGB CONC 33 g/dL (31-37); MEAN CORPUSCULAR VOLUME 91 fL (79-100); MONO % 9 % (0-9); NEUT % 61 % (31-73); PLATELET COUNT 209 x10^3/uL (140-400); RED CELL DISTRIBUTION WIDTH 13.1 % (11.5-14.5); WHITE BLOOD COUNT 6.7 x10^3/uL (4.0-11.0)
[2016-06-09] MEDS: LEVOTHYROXINE 125 MCG TABLET PO SCH (07:20)
[2016-06-09 07:31] LABS: INR 2.5 (0.8-1.1); PROTHROMBIN TIME PATIENT 25.3 SEC (11.7-14.0)
[2016-06-09] MEDS: INSULIN ASPART 300 UNITS/3 ML INSULN.PEN SQ SCH ×6 (08:00→17:53)
[2016-06-09] MEDS: GABAPENTIN 300 MG CAPSULE. PO SCH ×2 (08:27→17:43)
[2016-06-09] MEDS: FLUCONAZOLE 100 MG TABLET. PO SCH (08:27)
[2016-06-09] MEDS: predniSONE 5 MG TABLET PO SCH (08:27)
[2016-06-09] MEDS: INSULIN DETEMIR 300 UNITS/3 ML INSULN.PEN. SQ SCH ×2 (08:37→20:25)
--- NOTE | 2016-06-09 09:41 | PDOC ---
SUBJECTIVE ROS EVON/ CKD III Doign and feeling a little better x for some itching CVS: no Orthopnea, no CP RESP: no SOB, no FERNÁNDEZ GI: no Nausea, no Vomiting : no Dysuria, no Urgency OBJECTIVE Vital Signs Vital Signs Date Time Temp Pulse Resp B/P Pulse Ox O2 Delivery O2 Flow Rate FiO2 06/09/16 07:40 Room Air 06/09/16 03:00 97.7 95 18 128/49 96 97.7 I & 0 Intake and Output 06/09/16 07:00 Intake Total 1950 ml Output Total 1700 ml Balance 250 ml Intake Oral 1950 ml Output Urine Total 1700 ml # Bowel Movements 1 PHYSICAL EXAM Physical Exam General Appearance: Awake Alert Oriented x 3 In no Distress - Obese Eyes: VIsion Unchanged Conjunctiva Normal EN: No EN Drainage Mucous Memb. moist Neck: no JVD no JVP Supple no Thyromegaly CVS: S1 S2 + Murmur No Gallop No Rub none Edema Resp: no Rales no Rhonchi no Acc. Muscle use GI: BS +ve NO Bruit Non Tender Non Distended - obese : no CVA tenderness; no Suprapubic Tenderness Assessment & Plan ARF - ? VMN from fever/ dehydration/ Glycosuria vs ? Pyelo.: was slightly better yest. Labs P for todya. Current FLuid and E-lyte status does not necessitate emergent need for Dialysis. Will re-evaluate for Dialysis in am CKD III - baseline creat is 1.7 as of Feb 2016. Single functioning [place] Anemia: check Iron; Epogen as needed. HTN: Current BP meds reviewed. See orders for changes. Vol Dpeltion - better after IVF as ordered PVD with Foot wound - if felt to merit Angio - then IVF with NAC would be needed. Discussed Plan of Care and prognosis etc. at length with pt COMMENT/RELEVANT DATA Meds Current Medications Medications (Trade) Dose Ordered Sig/Bereket Start Time Stop Time Status Last Admin Dose Admin Acetaminophen (Tylenol) 650 mg PRN Q6HRS PRN 06/06/16 04:30 06/06/16 06:36 650 MG Acetaminophen 650 mg 650 mg PRN Q4HRS PRN 06/04/16 23:45 06/05/16 23:44 DC 06/05/16 02:24 650 MG Calcium Carbonate/ Glycine (Tums) 500 mg PRN AFTMEALHC PRN 06/05/16 19:00 Ceftriaxone Sodium/Sodium Chloride (Rocephin/Iv Sodium Chloride 0.9% 100ml) 100 ml @ 200 mls/hr Q24H 06/08/16 12:00 06/08/16 12:44 200 MLS/HR Ceftriaxone Sodium/Sodium Chloride (Rocephin/Iv Sodium Chloride 0.9% 50ml) 50 ml @ 100 mls/hr Q24H 06/05/16 00:00 06/05/16 09:43 DC 06/05/16 00:00 100 MLS/HR Daptomycin/Sodium Chloride (Cubicin/Iv Sodium Chloride 0.9% 50ml) 50 ml @ 100 mls/hr ONCE ONCE 06/05/16 10:30 06/05/16 10:59 DC 06/05/16 10:34 100 MLS/HR Dextrose (Dextrose 50%-Water Syringe) 12.5 gm PRN Q15MIN PRN 06/05/16 08:15 Diphenhydramine HCl (Benadryl) 25 mg PRN Q6HRS PRN 06/06/16 10:45 06/07/16 06:17 25 MG Diphenhydramine HCl 50 mg 50 mg PRN Q6HRS PRN 06/07/16 15:45 06/08/16 17:06 50 MG Fluconazole 100 mg 100 mg DAILY 06/05/16 10:00 06/09/16 08:27 100 MG Gabapentin (Neurontin) 600 mg BID94 06/05/16 21:00 06/09/16 08:27 600 MG Heparin Sodium (Porcine) 5000 unit 5,000 unit Q12HR 06/05/16 09:00 06/06/16 13:45 DC 06/06/16 08:13 5,000 UNIT Hydralazine HCl (Apresoline) 10 mg PRN Q4HRS PRN 06/06/16 14:00 Insulin Aspart (Novolog) 20 units TIDAC 06/07/16 11:30 06/09/16 08:36 20 UNITS Insulin Detemir (Levemir) 30 units DAILY08 06/07/16 08:00 06/09/16 08:37 30 UNITS Insulin Detemir 20 units 20 units QHS 06/06/16 21:00 06/08/16 20:58 20 UNITS Insulin Human Regular 150 ml @ 0 mls/hr 1X ONCE 06/05/16 00:00 06/05/16 08:26 DC 06/05/16 02:46 8 MLS/HR Levothyroxine Sodium (Synthroid) 125 mcg DAILY07 06/06/16 07:00 06/09/16 07:20 125 MCG Losartan Potassium (Cozaar) 100 mg DAILY 06/06/16 09:00 06/06/16 13:45 DC 06/06/16 08:06 100 MG Magnesium Sulfate/ Dextrose (Magnesium Sulfate PREMIX 2GM) 50 ml @ 25 mls/hr 1X ONCE 06/06/16 12:30 06/06/16 14:29 Cancel Morphine Sulfate 4 mg 4 mg PRN Q2HR PRN 06/04/16 23:45 06/05/16 23:44 DC 06/05/16 05:35 4 MG Ondansetron HCl (Zofran) 4 mg PRN Q6HRS PRN 06/06/16 14:00 Piperacillin Sod/ Tazobactam Sod 2.25 gm/Sodium Chloride 50 ml @ 100 mls/hr Q6HRS 06/05/16 12:00 06/08/16 11:29 DC 06/08/16 05:55 100 MLS/HR Prednisone (Prednisone) 5 mg DAILY 06/06/16 09:00 06/09/16 08:27 5 MG Sodium Chloride (Iv Sodium Chloride 0.45%) 1,000 ml @ 125 mls/hr Q8H 06/05/16 11:30 06/08/16 19:27 DC 06/08/16 03:30 125 MLS/HR Sodium Chloride (Iv Sodium Chloride 0.9% 1000ml Bag) 1,000 ml @ 125 mls/hr Q8H 06/04/16 23:45 06/05/16 11:18 DC 06/04/16 01:30 125 MLS/HR Tamsulosin HCl (Flomax) 0.4 mg QHS 06/07/16 21:00 06/08/16 20:56 0.4 MG Tramadol HCl (Ultram) 50 mg PRN Q6HRS PRN 06/06/16 14:00 Warfarin Sodium (Coumadin Per Pharmacy) 1 each PRN DAILY PRN 06/05/16 08:15 06/08/16 13:59 1 EACH Warfarin Sodium (Coumadin) 7.5 mg QTUTHSASU 06/06/16 16:00 06/07/16 15:34 7.5 MG Lab Laboratory Tests Test 06/08/16 12:05 06/08/16 16:39 06/08/16 20:55 06/09/16 05:55 Glucose (Fingerstick) 125mg/dL (70-99) 154mg/dL (70-99) 85mg/dL (70-99) White Blood Count 6.7x10^3/uL (4.0-11.0) Red Blood Count 3.70x10^6/uL (4.30-5.70) Hemoglobin 11.3g/dL (13.0-17.5) Hematocrit 33.7% (39.0-53.0) Mean Corpuscular Volume 91fL (79-100) Mean Corpuscular Hemoglobin 31pg (25-35) Mean Corpuscular Hemoglobin Concent 33g/dL (31-37) Red Cell Distribution Width 13.1% (11.5-14.5) Platelet Count 209x10^3/uL (140-400) Neutrophils (%) (Auto) 61% (31-73) Lymphocytes (%) (Auto) 23% (24-48) Monocytes (%) (Auto) 9% (0-9) Eosinophils (%) (Auto) 7% (0-3) Basophils (%) (Auto) 1% (0-3) Neutrophils # (Auto) 4.0x10^3uL (1.8-7.7) Lymphocytes # (Auto) 1.5x10^3/uL (1.0-4.8) Monocytes # (Auto) 0.6x10^3/uL (0.0-1.1) Eosinophils # (Auto) 0.4x10^3/uL (0.0-0.7) Basophils # (Auto) 0.0x10^3/uL (0.0-0.2) Prothrombin Time 25.3SEC (11.7-14.0) Prothromb Time International Ratio 2.5 (0.8-1.1) Test 06/09/16 07:54 Glucose (Fingerstick) 124mg/dL (70-99) TAMMY WESTON MD Jun 09, 2016 09:41
[2016-06-09] MEDS ORDERED: MAGNESIUM SULFATE 2GM 50 ML IV PRN (09:45)
--- NOTE | 2016-06-09 10:21 | PDOC ---
Infectious Disease Note Subjective Subjective Persistent pruritic rash, usually takes 3-4 Benadryl a day at home. Better today Some loose stool Denies pain, SOA, wheezing ROS ROS GEN: Denies fevers, chills, sweats HEENT: Denies blurred vision, sore throat CV: Denies chest pain RESP: Denies shortness of air, cough GI: Denies n/v/d NEURO: Denies confusion, dizziness MSK: Denies weakness, joint pain/swelling Vital Sign Vital Signs Vital Signs Date Time Temp Pulse Resp B/P Pulse Ox O2 Delivery O2 Flow Rate FiO2 06/09/16 07:40 Room Air 06/09/16 07:00 98.3 90 20 139/81 95 98.3 Physical Exam PHYSICAL EXAM GENERAL: NAD, Alert, in chair HEENT: PERRL, OC/OP - clear NECK: Supple, no JVD, no LN LUNGS: Clear HEART: S1S2, no gallop, no murmur ABD: Soft, NT, no organomegaly, no rebound, obese Fo[place] EXT: No edema, no cyanosis 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, 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, no focal neurologic deficit SKIN: light macular rash trunk and upper thighs IV: ok Labs Lab Laboratory Tests Test 06/08/16 12:05 06/08/16 16:39 06/08/16 20:55 06/09/16 05:55 Glucose (Fingerstick) 125mg/dL (70-99) 154mg/dL (70-99) 85mg/dL (70-99) White Blood Count 6.7x10^3/uL (4.0-11.0) Red Blood Count 3.70x10^6/uL (4.30-5.70) Hemoglobin 11.3g/dL (13.0-17.5) Hematocrit 33.7% (39.0-53.0) Mean Corpuscular Volume 91fL (79-100) Mean Corpuscular Hemoglobin 31pg (25-35) Mean Corpuscular Hemoglobin Concent 33g/dL (31-37) Red Cell Distribution Width 13.1% (11.5-14.5) Platelet Count 209x10^3/uL (140-400) Neutrophils (%) (Auto) 61% (31-73) Lymphocytes (%) (Auto) 23% (24-48) Monocytes (%) (Auto) 9% (0-9) Eosinophils (%) (Auto) 7% (0-3) Basophils (%) (Auto) 1% (0-3) Neutrophils # (Auto) 4.0x10^3uL (1.8-7.7) Lymphocytes # (Auto) 1.5x10^3/uL (1.0-4.8) Monocytes # (Auto) 0.6x10^3/uL (0.0-1.1) Eosinophils # (Auto) 0.4x10^3/uL (0.0-0.7) Basophils # (Auto) 0.0x10^3/uL (0.0-0.2) Prothrombin Time 25.3SEC (11.7-14.0) Prothromb Time International Ratio 2.5 (0.8-1.1) Test 06/09/16 07:54 Glucose (Fingerstick) 124mg/dL (70-99) Objective Assessment Strep sepsis - POA 06/04. Group B Fever LLE cellulitis Left 5th toe ? abscess and med ankle wound Right 2 and 3 toe infections ? PAD EVON on CKD single kidney. followed by Dr. Masters Leukocytosis - better Plan Plan of Care Repeat Blood cults times 2 Dose Rocephin and monitor Will need to monitor INR with fluconazole and coumadin Dapto times one, 06/05 Monitor rash Await further vascular input D/w VINCE Huang MD Jun 09, 2016 10:21
[2016-06-09 10:28] LABS: % SAT IRON 25 % (15-34); IRON,SERUM 52 ug/dL (65-175)
[2016-06-09 11:00] VITALS: BP 149/90
--- NOTE | 2016-06-09 12:03 | PDOC ---
PROGRESS NOTES Subjective Subjective "My is in the ER with a high potassium. Might be admitted." Objective Objective Vascular Surgery follow up: O: Just finished talking to on the phone. In the ER. Sitting up in chair with legs dependent. LARRY's intact. bilat Right foot dressing removed to inspect toes. Moist ulcers continue to 1st toe and involving 2-4th toes. Left foot dressing was not removed at this time. Unable to palpate distal pulses. CR 2.2 yesterday from a peak of 3.0. INR 2.5 today. Assessment/Plan: 1. PAD now with cellulitis and toe ulcers to right foot and left medial ankle. Patient would benefit from a CO2 aortogram with runoff to minimize dye load. Patient's INR 2.[address] coumadin on hold (if ok with attending) to allow INR to drift down to 1.8 for Interventional radiology to perform. MRI of the foot does not appear to indicate osteo. Continue LARRY stockings and bilat lower extremity elevation to reduce swelling. Consider antiplatelet therapy. 2. CKD. Would appreciate help from Nephrology re: timing to arteriogram in regards to underlying CKD. Will order Mucomyst to be initiated. 3. DM. Uncontrolled upon admit. Better control at this point. 4. Cellulitis. Antibiotics per ID. Vital Signs Date Time Temp Pulse Resp B/P Pulse Ox O2 Delivery O2 Flow Rate FiO2 06/09/16 07:40 Room Air 06/09/16 07:00 98.3 90 20 139/81 95 98.3 Intake and Output 06/09/16 07:00 Intake Total 1950 ml Output Total 1700 ml Balance 250 ml Intake Oral 1950 ml Output Urine Total 1700 ml # Bowel Movements 1 Assessment Assessment Problems Medical Problems: (1) Diabetic foot ulcer Status: Acute (2) Hyperglycemia Status: Acute (3) Pancreatitis Status: Acute (4) Sepsis Status: Acute Comment Review of Relevant I have reviewed the following items randy (where applicable) has been applied. Labs Laboratory Tests Test 06/07/16 16:38 06/07/16 21:31 06/08/16 04:15 06/08/16 08:04 Glucose (Fingerstick) 132mg/dL (70-99) 145mg/dL (70-99) 109mg/dL (70-99) White Blood Count 7.8x10^3/uL (4.0-11.0) Red Blood Count 3.33x10^6/uL (4.30-5.70) Hemoglobin 10.3g/dL (13.0-17.5) Hematocrit 30.8% (39.0-53.0) Mean Corpuscular Volume 92fL (79-100) Mean Corpuscular Hemoglobin 31pg (25-35) Mean Corpuscular Hemoglobin Concent 33g/dL (31-37) Red Cell Distribution Width 13.2% (11.5-14.5) Platelet Count 163x10^3/uL (140-400) Neutrophils (%) (Auto) 73% (31-73) Lymphocytes (%) (Auto) 14% (24-48) Monocytes (%) (Auto) 8% (0-9) Eosinophils (%) (Auto) 4% (0-3) Basophils (%) (Auto) 1% (0-3) Neutrophils # (Auto) 5.7x10^3uL (1.8-7.7) Lymphocytes # (Auto) 1.1x10^3/uL (1.0-4.8) Monocytes # (Auto) 0.6x10^3/uL (0.0-1.1) Eosinophils # (Auto) 0.3x10^3/uL (0.0-0.7) Basophils # (Auto) 0.0x10^3/uL (0.0-0.2) Sodium Level 144mmol/L (136-145) Potassium Level 4.3mmol/L (3.5-5.1) Chloride Level 111mmol/L (98-107) Carbon Dioxide Level 24mmol/L (21-32) Anion Gap 9 (6-14) Blood Urea Nitrogen 25mg/dL (8-26) Creatinine 2.2mg/dL (0.7-1.3) Estimated GFR (Cockcroft-Gault) 31.0 Glucose Level 127mg/dL (70-99) Calcium Level 8.2mg/dL (8.5-10.1) Test 06/08/16 12:05 06/08/16 16:39 06/08/16 20:55 06/09/16 05:55 Glucose (Fingerstick) 125mg/dL (70-99) 154mg/dL (70-99) 85mg/dL (70-99) White Blood Count 6.7x10^3/uL (4.0-11.0) Red Blood Count 3.70x10^6/uL (4.30-5.70) Hemoglobin 11.3g/dL (13.0-17.5) Hematocrit 33.7% (39.0-53.0) Mean Corpuscular Volume 91fL (79-100) Mean Corpuscular Hemoglobin 31pg (25-35) Mean Corpuscular Hemoglobin Concent 33g/dL (31-37) Red Cell Distribution Width 13.1% (11.5-14.5) Platelet Count 209x10^3/uL (140-400) Neutrophils (%) (Auto) 61% (31-73) Lymphocytes (%) (Auto) 23% (24-48) Monocytes (%) (Auto) 9% (0-9) Eosinophils (%) (Auto) 7% (0-3) Basophils (%) (Auto) 1% (0-3) Neutrophils # (Auto) 4.0x10^3uL (1.8-7.7) Lymphocytes # (Auto) 1.5x10^3/uL (1.0-4.8) Monocytes # (Auto) 0.6x10^3/uL (0.0-1.1) Eosinophils # (Auto) 0.4x10^3/uL (0.0-0.7) Basophils # (Auto) 0.0x10^3/uL (0.0-0.2) Reticulocyte Count (auto) 1.2% (0.5-2.5) Prothrombin Time 25.3SEC (11.7-14.0) Prothromb Time International Ratio 2.5 (0.8-1.1) Iron Level 52ug/dL (65-175) Total Iron Binding Capacity 208ug/dL (250-450) Iron Saturation 25% (15-34) Ferritin 433ng/mL (26-388) Test 06/09/16 07:54 Glucose (Fingerstick) 124mg/dL (70-99) Laboratory Tests Test 06/08/16 12:05 06/08/16 16:39 06/08/16 20:55 06/09/16 05:55 Glucose (Fingerstick) 125mg/dL (70-99) 154mg/dL (70-99) 85mg/dL (70-99) White Blood Count 6.7x10^3/uL (4.0-11.0) Red Blood Count 3.70x10^6/uL (4.30-5.70) Hemoglobin 11.3g/dL (13.0-17.5) Hematocrit 33.7% (39.0-53.0) Mean Corpuscular Volume 91fL (79-100) Mean Corpuscular Hemoglobin 31pg (25-35) Mean Corpuscular Hemoglobin Concent 33g/dL (31-37) Red Cell Distribution Width 13.1% (11.5-14.5) Platelet Count 209x10^3/uL (140-400) Neutrophils (%) (Auto) 61% (31-73) Lymphocytes (%) (Auto) 23% (24-48) Monocytes (%) (Auto) 9% (0-9) Eosinophils (%) (Auto) 7% (0-3) Basophils (%) (Auto) 1% (0-3) Neutrophils # (Auto) 4.0x10^3uL (1.8-7.7) Lymphocytes # (Auto) 1.5x10^3/uL (1.0-4.8) Monocytes # (Auto) 0.6x10^3/uL (0.0-1.1) Eosinophils # (Auto) 0.4x10^3/uL (0.0-0.7) Basophils # (Auto) 0.0x10^3/uL (0.0-0.2) Reticulocyte Count (auto) 1.2% (0.5-2.5) Prothrombin Time 25.3SEC (11.7-14.0) Prothromb Time International Ratio 2.5 (0.8-1.1) Iron Level 52ug/dL (65-175) Total Iron Binding Capacity 208ug/dL (250-450) Iron Saturation 25% (15-34) Ferritin 433ng/mL (26-388) Test 06/09/16 07:54 Glucose (Fingerstick) 124mg/dL (70-99) Microbiology 06/04/16 Blood Culture - Final, Complete 06/04/16 Blood Culture Result 1 (LEIDY) - Final, Complete Medications Current Medications Sodium Chloride (Iv Sodium Chloride 0.9% 1000ml Bag) 1,000 ml @ 3,510 mls/hr Q18M IV Last administered on 06/04/16 03:55; Start 06/04/16 at 21:38; Stop at 22:38; Status DC Morphine Sulfate 4 mg PRN Q15MIN PRN IV/SQ PAIN GREATER THAN 3/10 Last administered on 06/04/16 22:07; Start 06/04/16 at 21:45; Stop 06/05/16 at 21:44 ; Status DC Ondansetron HCl (Zofran) 4 mg 1X ONCE IV Last administered on 06/04/16 22:07 ; Start 06/04/16 at 21:45; Stop 06/04/16 at 21:46; Status DC Acetaminophen (Tylenol) 650 mg 1X ONCE PO Last administered on 06/04/16 22:07 ; Start 06/04/16 at 21:45; Stop 06/04/16 at 21:46; Status DC Ondansetron HCl (Zofran) 4 mg PRN Q8HRS PRN IV NAUSEA/VOMITING; Start 06/04/16 at 23:45; Stop 06/05/16 at 23:44; Status DC Morphine Sulfate 4 mg 4 mg PRN Q2HR PRN IV PAIN Last administered on 06/05/16 05:35; Start 06/04/16 at 23:45; Stop 06/05/16 at 23:44; Status DC Sodium Chloride (Iv Sodium Chloride 0.9% 1000ml Bag) 1,000 ml @ 125 mls/hr Q8H IV Last administered on 06/04/16 01:30; Start 06/04/16 at 23:45; Stop at 11:18; Status DC Acetaminophen 650 mg 650 mg PRN Q4HRS PRN PO FEVER Last administered on 02:24; Start 06/04/16 at 23:45; Stop 06/05/16 at 23:44; Status DC Insulin Human Regular 150 ml @ 0 mls/hr 1X ONCE IV Last administered on 02:46; Start 06/05/16 at 00:00; Stop 06/05/16 at 08:26; Status DC Ceftriaxone Sodium/Sodium Chloride (Rocephin/Iv Sodium Chloride 0.9% 50ml) 50 ml @ 100 mls/hr Q24H IV Last administered on 06/05/16 00:00; Start 06/05/16 at 00:00; Stop 06/05/16 at 09:43; Status DC Levothyroxine Sodium (Synthroid) 100 mcg DAILY07 PO Last administered on 08:54; Start 06/05/16 at 08:15; Stop 06/05/16 at 20:29; Status DC Warfarin Sodium (Coumadin Per Pharmacy) 1 each PRN DAILY PRN MC SEE COMMENTS Last administered on 06/08/16 13:59; Start 06/05/16 at 08:15 Insulin Detemir (Levemir) 25 units QHS SQ ; Start 06/05/16 at 21:00; Stop at 11:27; Status DC Insulin Detemir (Levemir) 40 units DAILY08 SQ Last administered on 06/06/16 08 :14; Start 06/05/16 at 08:15; Stop 06/06/16 at 11:27; Status DC Insulin Aspart (Novolog) 30 units TIDAC SQ Last administered on 06/06/16 17:48 ; Start 06/05/16 at 08:30; Stop 06/07/16 at 11:23; Status DC Insulin Aspart (Novolog) 0-9 UNITS TIDWMEALS SQ Last administered on 06/08/16 16:54; Start 06/05/16 at 12:00 Dextrose (Dextrose 50%-Water Syringe) 12.5 gm PRN Q15MIN PRN IV SEE COMMENTS; Start 06/05/16 at 08:15 Heparin Sodium (Porcine) 5000 unit 5,000 unit Q12HR SQ Last administered on 08:13; Start 06/05/16 at 09:00; Stop 06/06/16 at 13:45; Status DC Piperacillin Sod/ Tazobactam Sod 2.25 gm/Sodium Chloride 50 ml @ 100 mls/hr Q6HRS IV Last administered on 06/08/16 05:55; Start 06/05/16 at 12:00; Stop at 11:29; Status DC Daptomycin/Sodium Chloride (Cubicin/Iv Sodium Chloride 0.9% 50ml) 50 ml @ 100 mls/hr ONCE ONCE IV Last administered on 06/05/16 10:34; Start 06/05/16 at 10 :30; Stop 06/05/16 at 10:59; Status DC Fluconazole 100 mg 100 mg DAILY PO Last administered on 06/09/16 08:27; Start 06/05/16 at 10:00 Sodium Chloride 1,000 ml @ 125 mls/hr Q8H IV ; Start 06/05/16 at 11:30; Status UNV Sodium Chloride (Iv Sodium Chloride 0.45%) 1,000 ml @ 125 mls/hr Q8H IV Last administered on 06/08/16 03:30; Start 06/05/16 at 11:30; Stop 06/08/16 at 19:27 ; Status DC Warfarin Sodium (Coumadin) 5 mg QMWF PO Last administered on 06/08/16 16:48; Start 06/05/16 at 17:00 Warfarin Sodium (Coumadin) 7.5 mg QTUTHSASU PO Last administered on 06/07/16 15:34; Start 06/06/16 at 16:00 Levothyroxine Sodium (Synthroid) 125 mcg DAILY07 PO Last administered on 07:20; Start 06/06/16 at 07:00 Prednisone (Prednisone) 5 mg DAILY PO Last administered on 06/09/16 08:27; Start 06/06/16 at 09:00 Tramadol HCl (Ultram) 50 mg PRN Q6HRS PRN PO pain; Start 06/05/16 at 19:00; Stop 06/06/16 at 13:55; Status DC Gabapentin (Neurontin) 600 mg BID94 PO Last administered on 06/09/16 08:27; Start 06/05/16 at 21:00 Losartan Potassium (Cozaar) 100 mg DAILY PO Last administered on 06/06/16 08: 06; Start 06/06/16 at 09:00; Stop 06/06/16 at 13:45; Status DC Calcium Carbonate/ Glycine (Tums) 500 mg PRN AFTMEALHC PRN PO INDIGESTION; Start 06/05/16 at 19:00 Acetaminophen (Tylenol) 650 mg PRN Q6HRS PRN PO MILD PAIN Last administered on 06/06/16 06:36; Start 06/06/16 at 04:30 Diphenhydramine HCl (Benadryl) 25 mg PRN Q6HRS PRN PO ITCHING Last administered on 06/07/16 06:17; Start 06/06/16 at 10:45 Insulin Detemir (Levemir) 30 units DAILY08 SQ Last administered on 06/09/16 08 :37; Start 06/07/16 at 08:00 Insulin Detemir 20 units 20 units QHS SQ Last administered on 06/08/16 20:58; Start 06/06/16 at 21:00 Magnesium Sulfate/ Dextrose 100 ml @ 25 mls/hr 1X ONCE IV Last administered on 06/06/16 12:19; Start 06/06/16 at 11:45; Stop 06/06/16 at 15:44; Status DC Magnesium Sulfate/ Dextrose (Magnesium Sulfate PREMIX 2GM) 50 ml @ 25 mls/hr 1X ONCE IV ; Start 06/06/16 at 12:30; Stop 06/06/16 at 14:29; Status Cancel Hydralazine HCl (Apresoline) 10 mg PRN Q4HRS PRN IVP ELEVATED BP, SEE COMMENTS ; Start 06/06/16 at 14:00 Ondansetron HCl (Zofran) 4 mg PRN Q6HRS PRN IV NAUSEA/VOMITING; Start 06/06/16 at 14:00 Tramadol HCl (Ultram) 50 mg PRN Q6HRS PRN PO MOSERATE - SEVERE PAIN; Start at 14:00 Insulin Aspart (Novolog) 20 units TIDAC SQ Last administered on 06/09/16 08:36 ; Start 06/07/16 at 11:30 Tamsulosin HCl (Flomax) 0.4 mg QHS PO Last administered on 06/08/16 20:56; Start 06/07/16 at 21:00 Diphenhydramine HCl 50 mg 50 mg PRN Q6HRS PRN PO ITCHING Last administered on 17:06; Start 06/07/16 at 15:45 Ceftriaxone Sodium 2 gm/ Sodium Chloride 100 ml @ 200 mls/hr Q24H IV Last administered on 06/08/16 12:44; Start 06/08/16 at 12:00 Magnesium Sulfate/ Dextrose (Magnesium Sulfate PREMIX 2GM) 50 ml @ 25 mls/hr PRN DAILY PRN IV for Mag < 1.7 on am labs; Start 06/09/16 at 09:45 Active Scripts Active Reported Novolin N (Nph, Human Insulin Isophane) 100 Unit/1 Ml Vial 20-25 Unit SQ QHS Novolog (Insulin Aspart) 100 Unit/1 Ml Cartridge 30 Unit SQ TIDWMEALS Triamcinolone Acetonide 0.1% Cream (Triamcinolone Acetonide) 15 Gm Cream..g. 1 Miles TP Tramadol Hcl 50 Mg Tablet 1 Tab PO PRN Q6HRS Calcium (Calcium Carbonate) 600 Mg Tablet 1,200 Mg PO Warfarin Sodium 7.5 Mg Tablet 7.5 Mg PO QTUTHSASU Warfarin Sodium 5 Mg Tablet 1 Tab PO QMWF Daily Multiple Vitamin (Multivitamin) 1 Each Tablet 1 Each PO Gabapentin 600 Mg Tablet 1,200 Mg PO HS Gabapentin 600 Mg Tablet 600 Mg PO BID94 Losartan Potassium 100 Mg Tablet 100 Mg PO DAILY Prednisone 1 Mg Tablet 4 Tab PO DAILY Levothyroxine Sodium 125 Mcg Tablet 1 Tab PO DAILY Vitals/I & O Vital Sign - Last 24 Hours 06/08/16 06/08/16 06/08/16 06/08/16 15:00 19:00 19:56 23:00 Temp 98.2 98.2 97.5 98.2 98.2 97.5 Pulse 93 88 99 Resp 21 20 20 B/P 142/80 145/76 146/58 Pulse Ox 94 94 97 O2 Delivery Room Air Room Air Room Air Room Air 06/09/16 06/09/16 06/09/16 03:00 07:00 07:40 Temp 97.7 98.3 97.7 98.3 Pulse 95 90 Resp 18 20 B/P 128/49 139/81 Pulse Ox 96 95 O2 Delivery Room Air Room Air Room Air Intake and Output 06/08/16 06/08/16 06/09/16 15:00 23:00 07:00 Intake Total 600 ml 1350 ml 0 ml Output Total 750 ml 950 ml Balance -150 ml 400 ml 0 ml NOEL ROCHE APRN Jun 09, 2016 12:03
--- NOTE | 2016-06-09 12:11 | PDOC ---
Provider Note Provider Note UROLOGY: Consult dictated. TY INGRAM DO Jun 09, 2016 12:11
--- NOTE | 2016-06-09 13:23 | PDOC ---
PROGRESS NOTES Chief Complaint Chief Complaint Toe cellulitis Sepsis ASSESSMENT AND PLAN: 1. Sepsis: Group B Strep isolated. 2. L toe/foot cellulitis: ? abscess 5th toe, no osteo per MRI. on ceftriax and diflucan 3. R toe infect: see [2.] 4. Leukocytosis: reactive 2/2 infect. resolved 5. Rash: ?drug rxn. Zosyn switched to ceftriax by Dr Lou. symptomatic benadryl prn. recent hx [place] Joel 2/2 allopurinol, acc to pt 6. PAD: unclear extent; appreciate Dr Heard's input: CO2 arteriogram ( decrease dye load) planned, but needs INR <1.8. ok to hold coumadinfor now; monitor INR daily 7. EVON on CKD4: vasomotor etiology; suspect back to baseline creat. single kidney. followed by Dr. Masters 8. DM2: well controlled on current regimen 9. HTN: well controlled. cont current regimen 9. HLD: on statin 10. hx recurrent DVT: on coumadin (currently on hold); monitor INR closely: fluconazole may increase cont iv abx for now ivf, hold acei decrease aspart to 20u tid, levemir decrease to 30u daily, 20u qhs, SSI. wound care ptot replete Mag warfarin, INR daily bladder scan, notice 700cc urine in US. History of Present Illness History of Present Illness rash improving, less itchy. worried about arteriogram and dye load. Vitals Vitals Vital Signs Date Time Temp Pulse Resp B/P Pulse Ox O2 Delivery O2 Flow Rate FiO2 06/09/16 11:00 98.1 94 20 149/90 98 Room Air 98.1 Physical Exam General: Alert, Oriented X3, Cooperative, mild distress Heart: Regular rate, Normal S1, Normal S2 Lungs: Clear Abdomen: Normal bowel sounds, Soft Extremities: No cyanosis, No edema Labs LABS Laboratory Tests Test 06/08/16 16:39 06/08/16 20:55 06/09/16 05:55 06/09/16 07:54 Glucose (Fingerstick) 154mg/dL (70-99) 85mg/dL (70-99) 124mg/dL (70-99) White Blood Count 6.7x10^3/uL (4.0-11.0) Red Blood Count 3.70x10^6/uL (4.30-5.70) Hemoglobin 11.3g/dL (13.0-17.5) Hematocrit 33.7% (39.0-53.0) Mean Corpuscular Volume 91fL (79-100) Mean Corpuscular Hemoglobin 31pg (25-35) Mean Corpuscular Hemoglobin Concent 33g/dL (31-37) Red Cell Distribution Width 13.1% (11.5-14.5) Platelet Count 209x10^3/uL (140-400) Neutrophils (%) (Auto) 61% (31-73) Lymphocytes (%) (Auto) 23% (24-48) Monocytes (%) (Auto) 9% (0-9) Eosinophils (%) (Auto) 7% (0-3) Basophils (%) (Auto) 1% (0-3) Neutrophils # (Auto) 4.0x10^3uL (1.8-7.7) Lymphocytes # (Auto) 1.5x10^3/uL (1.0-4.8) Monocytes # (Auto) 0.6x10^3/uL (0.0-1.1) Eosinophils # (Auto) 0.4x10^3/uL (0.0-0.7) Basophils # (Auto) 0.0x10^3/uL (0.0-0.2) Reticulocyte Count (auto) 1.2% (0.5-2.5) Prothrombin Time 25.3SEC (11.7-14.0) Prothromb Time International Ratio 2.5 (0.8-1.1) Iron Level 52ug/dL (65-175) Total Iron Binding Capacity 208ug/dL (250-450) Iron Saturation 25% (15-34) Ferritin 433ng/mL (26-388) Test 06/09/16 11:26 Glucose (Fingerstick) 123mg/dL (70-99) DEBORAH ORNELAS MD Jun 09, 2016 13:23
[2016-06-09 15:00] VITALS: BP 136/78
[2016-06-09 19:00] VITALS: BP 153/66
[2016-06-09] MEDS: ACETYLCYSTEINE 20% ORAL SOLN 600 MG/3 ML SYRINGE. PO SCH (20:25)
[2016-06-09] MEDS: TAMSULOSIN 0.4 MG CAP.ER.24H. PO SCH (20:25)
[2016-06-09 23:00] VITALS: BP 161/87
[2016-06-10 03:00] VITALS: BP 146/87
--- NOTE | 2016-06-10 03:39 | CONS ---
DATE OF CONSULTATION: 06/09/2016 CHIEF COMPLAINT: Chronic urinary retention. HISTORY OF PRESENT ILLNESS: This is a 55-year-old obese male with multiple medical problems. He was admitted with sepsis due to Streptococcus believed to have been a complication of his foot ulcers. Urology was asked to see the patient since he was found to have large postvoid residual urine volumes. At one point, he had a postvoid residual urine volume of 467 mL and another instance where he had a postvoid residual urine of 625 mL. Due to his high postvoid residual urine volumes and the fact that he has chronic kidney disease with elevated creatinine levels, he was placed on indwelling Flannery catheter, which he has in place at this time. PAST MEDICAL HISTORY: Significant for many years of insulin-dependent diabetes, peripheral neuropathy, hypertension, gout, anxiety issues and multiple skin ulcerations. The patient also has a history of deep vein thrombosis. ALLERGIES: THE PATIENT HAS MULTIPLE ALLERGIES INCLUDING STATINS. MEDICATIONS: Allopurinol. List was reviewed. The patient is currently on one Flomax tablet daily. He is on insulin, Apresoline, prednisone, levothyroxine. The patient is also on chronic Coumadin therapy. LABORATORY DATA: The patient's BUN has been running in the mid 30s. His creatinine has been ranging from 2.2-3.0. White blood cell count has decreased from 14.1 to currently 6.7 with IV antibiotic therapy. Urinalysis on admission, cassidy colored urine positive for glucose, occasional red blood cells, occasional white blood cells, trace bacteria. X-RAY STUDIES: Reveals the patient has a solitary left kidney with renal cyst, no evidence of hydronephrosis or obstruction. PHYSICAL EXAMINATION: GENERAL DESCRIPTION: A 55-year-old male, obese, examined in a chair. He is able to walk with a walker. The patient is alert and oriented. He denies any pain or discomfort. ABDOMEN: Soft, nontender. Negative for flank pain bilaterally. No palpable abdominal masses. No suprapubic tenderness. GENITALIA: The patient has indwelling Flannery catheter draining cassidy colored urine to dependent drainage bag. RECTAL: Not performed at this time. MUSCULOSKELETAL: The patient has multiple foot ulcers, particularly the right foot. This was bandaged at this time. IMPRESSION: 1. Chronic urinary retention. 2. Hypotonic bladder. 3. Insulin-dependent diabetes. 4. Chronic kidney disease. 5. Obesity. SUGGESTIONS: 1. Increase the patient's Flomax to 2 tablets daily and then remove his catheter for a voiding trial and monitor his postvoid residual urine volumes. 2. If he continues to have large postvoid residual urine volumes then consider teaching him self-intermittent catheterization where he would catheterize himself twice daily. This would be preferable to a chronic indwelling Flannery catheter, which would only lead to recurrent urinary tract infections. 3. The patient states that he had bladder function studies performed at [facility] in 2012. It would be nice if we could get the results of those studies before I am not very optimistic that this patient will be able to empty his bladder satisfactorily and therefore, if he fails his voiding trial while on 2 Flomax daily then strongly consider self-intermittent catheterization twice daily. I think he could do this, he appears to have good dexterity in his arms and hands. Thank you for the opportunity to participate in evaluation of this patient. TY INGRAM DO DR: MARCIN/kayla JOB#: [id number] / [id number]
[2016-06-10] MEDS: LEVOTHYROXINE 125 MCG TABLET PO SCH (05:41)
[2016-06-10 06:40] LABS: ALBUMIN 2.4 g/dL (3.4-5.0); CALCIUM 8.3 mg/dL (8.5-10.1); CREATININE 1.8 mg/dL (0.7-1.3); GFR 39.1; POTASSIUM 4.3 mmol/L (3.5-5.1)
[2016-06-10 06:50] LABS: INR 2.4 (0.8-1.1); PROTHROMBIN TIME PATIENT 24.4 SEC (11.7-14.0)
--- NOTE | 2016-06-10 07:15 | PDOC ---
Provider Note Provider Note Vascular F/U Arterial doppler report reviewed: Somewhat confusing report but appears to have monophasic arterial flow distal to popliteal arteries Creat. down to 1.8 Will discuss with IR re a CO2 angio with limited dye in lower leg eval. KIRK ROCHE MD Jun 10, 2016 07:15
[2016-06-10 07:25] VITALS: BP 142/79
[2016-06-10] MEDS: INSULIN ASPART 300 UNITS/3 ML INSULN.PEN SQ SCH ×6 (08:00→16:56)
[2016-06-10] MEDS: predniSONE 5 MG TABLET PO SCH (08:07)
[2016-06-10] MEDS: GABAPENTIN 300 MG CAPSULE. PO SCH ×2 (08:07→16:59)
[2016-06-10] MEDS: FLUCONAZOLE 100 MG TABLET. PO SCH (08:08)
[2016-06-10] MEDS: ACETYLCYSTEINE 20% ORAL SOLN 600 MG/3 ML SYRINGE. PO SCH ×2 (08:08→20:33)
[2016-06-10] MEDS: INSULIN DETEMIR 300 UNITS/3 ML INSULN.PEN. SQ SCH ×2 (08:11→20:39)
--- NOTE | 2016-06-10 09:56 | PDOC ---
SUBJECTIVE ROS EVON doigna nd feeling better today CVS: no Orthopnea, no CP RESP: no SOB, no FERNÁNDEZ GI: no Nausea, no Vomiting + Diarrhea : no Dysuria, no Urgency OBJECTIVE Vital Signs Vital Signs Date Time Temp Pulse Resp B/P Pulse Ox O2 Delivery O2 Flow Rate FiO2 06/10/16 07:50 Room Air 06/10/16 07:25 97.5 92 18 142/79 97 97.5 I & 0 Intake and Output 06/10/16 07:00 Intake Total 1650 ml Output Total 1700 ml Balance -50 ml Intake Oral 1550 ml IV Total 100 ml Output Urine Total 1700 ml # Bowel Movements 1 PHYSICAL EXAM Physical Exam General Appearance: Awake Alert Oriented x 3 In no Distress - Obese Eyes: VIsion Unchanged Conjunctiva Normal EN: No EN Drainage Mucous Memb. moist Neck: no JVD no JVP Supple no Thyromegaly CVS: S1 S2 + Murmur No Gallop No Rub none Edema Resp: no Rales no Rhonchi no Acc. Muscle use GI: BS +ve NO Bruit Non Tender Non Distended - obese : no CVA tenderness; no Suprapubic Tenderness Assessment & Plan ARF - now resolved Urinary retention - Flannery in palce - defer to URO to D/c Flannery when ready CKD III - baseline creat is 1.7 as of Feb 2016. Single functioning Kdney - creat is now close to same Anemia: Fe is OK Vol Dpeltion - resolved, PO intake is good. watch for same while off of IVF due to ongoing diarrhea. PVD with Foot wound - if felt to merit Angio - then IVF with NAC would be needed uncless can be done with CO2 as being contemplated Discussed Plan of Care and prognosis etc. at length with pt COMMENT/RELEVANT DATA Meds Current Medications Medications (Trade) Dose Ordered Sig/Bereket Start Time Stop Time Status Last Admin Dose Admin Acetaminophen (Tylenol) 650 mg PRN Q6HRS PRN 06/06/16 04:30 06/06/16 06:36 650 MG Acetaminophen 650 mg 650 mg PRN Q4HRS PRN 06/04/16 23:45 06/05/16 23:44 DC 06/05/16 02:24 650 MG Acetylcysteine (Mucomyst 20% Oral Solution) 600 mg BID 06/09/16 21:00 06/11/16 20:59 06/10/16 08:08 600 MG Calcium Carbonate/ Glycine (Tums) 500 mg PRN AFTMEALHC PRN 06/05/16 19:00 Ceftriaxone Sodium 2 gm/ Sodium Chloride 100 ml @ 200 mls/hr Q24H 06/08/16 12:00 06/09/16 12:38 200 MLS/HR Ceftriaxone Sodium/Sodium Chloride (Rocephin/Iv Sodium Chloride 0.9% 50ml) 50 ml @ 100 mls/hr Q24H 06/05/16 00:00 06/05/16 09:43 DC 06/05/16 00:00 100 MLS/HR Daptomycin/Sodium Chloride (Cubicin/Iv Sodium Chloride 0.9% 50ml) 50 ml @ 100 mls/hr ONCE ONCE 06/05/16 10:30 06/05/16 10:59 DC 06/05/16 10:34 100 MLS/HR Dextrose (Dextrose 50%-Water Syringe) 12.5 gm PRN Q15MIN PRN 06/05/16 08:15 Diphenhydramine HCl (Benadryl) 25 mg PRN Q6HRS PRN 06/06/16 10:45 06/07/16 06:17 25 MG Diphenhydramine HCl 50 mg 50 mg PRN Q6HRS PRN 06/07/16 15:45 06/08/16 17:06 50 MG Fluconazole 100 mg 100 mg DAILY 06/05/16 10:00 06/10/16 08:08 100 MG Gabapentin (Neurontin) 600 mg [id number] 06/05/16 21:00 06/10/16 08:07 600 MG Heparin Sodium (Porcine) 5000 unit 5,000 unit Q12HR 06/05/16 09:00 06/06/16 13:45 DC 06/06/16 08:13 5,000 UNIT Hydralazine HCl (Apresoline) 10 mg PRN Q4HRS PRN 06/06/16 14:00 Insulin Aspart (Novolog) 20 units TIDAC 06/07/16 11:30 06/10/16 08:12 20 UNITS Insulin Detemir (Levemir) 30 units DAILY08 06/07/16 08:00 06/10/16 08:11 30 UNITS Insulin Detemir 20 units 20 units QHS 06/06/16 21:00 06/08/16 20:58 20 UNITS Insulin Human Regular 150 ml @ 0 mls/hr 1X ONCE 06/05/16 00:00 06/05/16 08:26 DC 06/05/16 02:46 8 MLS/HR Levothyroxine Sodium (Synthroid) 125 mcg DAILY07 06/06/16 07:00 06/10/16 05:41 125 MCG Losartan Potassium (Cozaar) 100 mg DAILY 06/06/16 09:00 06/06/16 13:45 DC 06/06/16 08:06 100 MG Magnesium Sulfate/ Dextrose (Magnesium Sulfate PREMIX 2GM) 50 ml @ 25 mls/hr PRN DAILY PRN 06/09/16 09:45 Magnesium Sulfate/ Dextrose (Magnesium Sulfate PREMIX 4GM) 100 ml @ 25 mls/hr 1X ONCE 06/06/16 11:45 06/06/16 15:44 DC 06/06/16 12:19 25 MLS/HR Morphine Sulfate 4 mg 4 mg PRN Q2HR PRN 06/04/16 23:45 06/05/16 23:44 DC 06/05/16 05:35 4 MG Ondansetron HCl (Zofran) 4 mg PRN Q6HRS PRN 06/06/16 14:00 Piperacillin Sod/ Tazobactam Sod 2.25 gm/Sodium Chloride 50 ml @ 100 mls/hr Q6HRS 06/05/16 12:00 06/08/16 11:29 DC 06/08/16 05:55 100 MLS/HR Prednisone (Prednisone) 5 mg DAILY 06/06/16 09:00 06/10/16 08:07 5 MG Sodium Chloride (Iv Sodium Chloride 0.45%) 1,000 ml @ 125 mls/hr Q8H 06/05/16 11:30 06/08/16 19:27 DC 06/08/16 03:30 125 MLS/HR Sodium Chloride (Iv Sodium Chloride 0.9% 1000ml Bag) 1,000 ml @ 125 mls/hr Q8H 06/04/16 23:45 06/05/16 11:18 DC 06/04/16 01:30 125 MLS/HR Tamsulosin HCl (Flomax) 0.4 mg QHS 06/07/16 21:00 06/09/16 20:25 0.4 MG Tramadol HCl (Ultram) 50 mg PRN Q6HRS PRN 06/06/16 14:00 Warfarin Sodium (Coumadin - No Dose Today) 1 each 1X WARF ONCE 06/09/16 16:00 06/09/16 16:01 DC Warfarin Sodium (Coumadin Per Pharmacy) 1 each PRN DAILY PRN 06/05/16 08:15 06/09/16 14:02 1 EACH Warfarin Sodium (Coumadin) 7.5 mg [id number] 06/06/16 16:00 06/09/16 11:49 DC 06/07/16 15:34 7.5 MG Lab Laboratory Tests Test 06/09/16 11:26 06/09/16 16:31 06/09/16 20:24 06/10/16 05:20 Glucose (Fingerstick) 123mg/dL (70-99) 159mg/dL (70-99) 76mg/dL (70-99) Hemoglobin 11.1g/dL (13.0-17.5) Prothrombin Time 24.4SEC (11.7-14.0) Prothromb Time International Ratio 2.4 (0.8-1.1) Sodium Level 140mmol/L (136-145) Potassium Level 4.3mmol/L (3.5-5.1) Chloride Level 107mmol/L (98-107) Carbon Dioxide Level 25mmol/L (21-32) Anion Gap 8 (6-14) Blood Urea Nitrogen 19mg/dL (8-26) Creatinine 1.8mg/dL (0.7-1.3) Estimated GFR (Cockcroft-Gault) 39.1 Glucose Level 136mg/dL (70-99) Calcium Level 8.3mg/dL (8.5-10.1) Phosphorus Level 3.0mg/dL (2.6-4.7) Magnesium Level 2.0mg/dL (1.8-2.4) Albumin 2.4g/dL (3.4-5.0) Test 06/10/16 07:27 Glucose (Fingerstick) 148mg/dL (70-99) TAMMY WESTON MD Jun 10, 2016 09:56
--- NOTE | 2016-06-10 10:17 | PDOC ---
Infectious Disease Note Subjective Subjective Persistent pruritic rash better but having increased loose stools Denies pain, SOA, wheezing ROS ROS GEN: Denies fevers, chills, sweats HEENT: Denies blurred vision, sore throat CV: Denies chest pain RESP: Denies shortness of air, cough GI: Denies n/v/d NEURO: Denies confusion, dizziness MSK: Denies weakness, joint pain/swelling Vital Sign Vital Signs Vital Signs Date Time Temp Pulse Resp B/P Pulse Ox O2 Delivery O2 Flow Rate FiO2 06/10/16 07:50 Room Air 06/10/16 07:25 97.5 92 18 142/79 97 97.5 Physical Exam PHYSICAL EXAM GENERAL: NAD, Alert, in chair HEENT: PERRL, OC/OP - clear NECK: Supple, no JVD, no LN LUNGS: Clear HEART: S1S2, no gallop, no murmur ABD: Soft, NT, no organomegaly, no rebound, obese [place] EXT: No edema, no cyanosis 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, 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, no focal neurologic deficit SKIN: light macular rash trunk and upper thighs IV: ok Labs Lab Laboratory Tests Test 06/09/16 11:26 06/09/16 16:31 06/09/16 20:24 06/10/16 05:20 Glucose (Fingerstick) 123mg/dL (70-99) 159mg/dL (70-99) 76mg/dL (70-99) Hemoglobin 11.1g/dL (13.0-17.5) Prothrombin Time 24.4SEC (11.7-14.0) Prothromb Time International Ratio 2.4 (0.8-1.1) Sodium Level 140mmol/L (136-145) Potassium Level 4.3mmol/L (3.5-5.1) Chloride Level 107mmol/L (98-107) Carbon Dioxide Level 25mmol/L (21-32) Anion Gap 8 (6-14) Blood Urea Nitrogen 19mg/dL (8-26) Creatinine 1.8mg/dL (0.7-1.3) Estimated GFR (Cockcroft-Gault) 39.1 Glucose Level 136mg/dL (70-99) Calcium Level 8.3mg/dL (8.5-10.1) Phosphorus Level 3.0mg/dL (2.6-4.7) Magnesium Level 2.0mg/dL (1.8-2.4) Albumin 2.4g/dL (3.4-5.0) Test 06/10/16 07:27 Glucose (Fingerstick) 148mg/dL (70-99) Objective Assessment Strep sepsis - POA 06/04. Group B Fever LLE cellulitis Left 5th toe ? abscess and med ankle wound Right 2 and 3 toe infections ? PAD EVON on CKD single kidney. followed by Dr. Masters Leukocytosis - better Plan Plan of Care F/u Repeat Blood cults times 2 Add Probitoics Check c-diff but AF and WBC normal - No bloating or cramps. CBC in am Dose Rocephin and monitor Will need to monitor INR with fluconazole and coumadin Dapto times one, 06/05 Await further vascular input VINCE LEBLANC MD Jun 10, 2016 10:17
[2016-06-10 10:34] VITALS: BP 148/81
[2016-06-10] MEDS: LACTOBACILLUS ACIDOPH & BULGAR 1 TABLET. PO SCH ×2 (12:04→16:58)
[2016-06-10] MEDS: MULTIVITAMIN with MINERAL TABLET. PO SCH (12:04)
[2016-06-10] MEDS: ASCORBIC ACID 500 MG TABLET PO SCH ×2 (12:05→20:33)
[2016-06-10 15:00] VITALS: BP 166/80
--- NOTE | 2016-06-10 15:00 | PDOC ---
PROGRESS NOTES Chief Complaint Chief Complaint Toe cellulitis Sepsis ASSESSMENT AND PLAN: 1. Sepsis: Group B Strep isolated. 2. L toe/foot cellulitis: ? abscess 5th toe, no osteo per MRI. on ceftriax and diflucan 3. R toe infect: 4. Leukocytosis: reactive 2/2 infect. resolved 5. Rash: . Zosyn switched to ceftriax by Dr Lou. symptomatic benadryl prn 6. PAD: unclear extent; appreciate Dr Heard's input: CO2 arteriogram ( decrease dye load) planned, but needs INR <1.8. ok to hold coumadinfor now; monitor INR daily 7. EVON on CKD4: vasomotor etiology; suspect back to baseline creat. single kidney. followed by Dr. Masters 8. DM2: well controlled on current regimen 9. HTN: well controlled. cont current regimen 9. HLD: on statin 10. hx recurrent DVT: on coumadin monitor INR closely: may need bridge after surg, to OR when INR < cont iv abx for now ivf, hold acei decrease aspart to 20u tid, levemir decrease to 30u daily, 20u qhs, SSI. wound care ptot replete Mag warfarin, INR daily bladder scan, notice 700cc urine in US. History of Present Illness History of Present Illness rash improving, less itchy. slept OK no pain mood OK Vitals Vitals Vital Signs Date Time Temp Pulse Resp B/P Pulse Ox O2 Delivery O2 Flow Rate FiO2 06/10/16 10:34 97.9 94 18 148/81 98 Room Air 97.9 Physical Exam General: Alert, Oriented X3, Cooperative, mild distress Heart: Regular rate, Normal S1, Normal S2 Lungs: Clear Abdomen: Normal bowel sounds, Soft Extremities: No cyanosis, No edema Labs LABS Laboratory Tests Test 06/09/16 16:31 06/09/16 20:24 06/10/16 05:20 06/10/16 07:27 Glucose (Fingerstick) 159mg/dL (70-99) 76mg/dL (70-99) 148mg/dL (70-99) Hemoglobin 11.1g/dL (13.0-17.5) Prothrombin Time 24.4SEC (11.7-14.0) Prothromb Time International Ratio 2.4 (0.8-1.1) Sodium Level 140mmol/L (136-145) Potassium Level 4.3mmol/L (3.5-5.1) Chloride Level 107mmol/L (98-107) Carbon Dioxide Level 25mmol/L (21-32) Anion Gap 8 (6-14) Blood Urea Nitrogen 19mg/dL (8-26) Creatinine 1.8mg/dL (0.7-1.3) Estimated GFR (Cockcroft-Gault) 39.1 Glucose Level 136mg/dL (70-99) Calcium Level 8.3mg/dL (8.5-10.1) Phosphorus Level 3.0mg/dL (2.6-4.7) Magnesium Level 2.0mg/dL (1.8-2.4) Albumin 2.4g/dL (3.4-5.0) Test 06/10/16 11:49 Glucose (Fingerstick) 137mg/dL (70-99) Assessment and Plan Assessmemt and Plan Problems Medical Problems: (1) Diabetic foot ulcer Status: Acute (2) Hyperglycemia Status: Acute (3) Pancreatitis Status: Acute (4) Sepsis Status: Acute Problems: Comment Review of Relevant I have reviewed the following items randy (where applicable) has been applied. Labs Laboratory Tests Test 06/08/16 16:39 06/08/16 20:55 06/09/16 05:55 06/09/16 07:54 Glucose (Fingerstick) 154mg/dL (70-99) 85mg/dL (70-99) 124mg/dL (70-99) White Blood Count 6.7x10^3/uL (4.0-11.0) Red Blood Count 3.70x10^6/uL (4.30-5.70) Hemoglobin 11.3g/dL (13.0-17.5) Hematocrit 33.7% (39.0-53.0) Mean Corpuscular Volume 91fL (79-100) Mean Corpuscular Hemoglobin 31pg (25-35) Mean Corpuscular Hemoglobin Concent 33g/dL (31-37) Red Cell Distribution Width 13.1% (11.5-14.5) Platelet Count 209x10^3/uL (140-400) Neutrophils (%) (Auto) 61% (31-73) Lymphocytes (%) (Auto) 23% (24-48) Monocytes (%) (Auto) 9% (0-9) Eosinophils (%) (Auto) 7% (0-3) Basophils (%) (Auto) 1% (0-3) Neutrophils # (Auto) 4.0x10^3uL (1.8-7.7) Lymphocytes # (Auto) 1.5x10^3/uL (1.0-4.8) Monocytes # (Auto) 0.6x10^3/uL (0.0-1.1) Eosinophils # (Auto) 0.4x10^3/uL (0.0-0.7) Basophils # (Auto) 0.0x10^3/uL (0.0-0.2) Reticulocyte Count (auto) 1.2% (0.5-2.5) Prothrombin Time 25.3SEC (11.7-14.0) Prothromb Time International Ratio 2.5 (0.8-1.1) Iron Level 52ug/dL (65-175) Total Iron Binding Capacity 208ug/dL (250-450) Iron Saturation 25% (15-34) Ferritin 433ng/mL (26-388) Test 06/09/16 11:26 06/09/16 16:31 06/09/16 20:24 06/10/16 05:20 Glucose (Fingerstick) 123mg/dL (70-99) 159mg/dL (70-99) 76mg/dL (70-99) Hemoglobin 11.1g/dL (13.0-17.5) Prothrombin Time 24.4SEC (11.7-14.0) Prothromb Time International Ratio 2.4 (0.8-1.1) Sodium Level 140mmol/L (136-145) Potassium Level 4.3mmol/L (3.5-5.1) Chloride Level 107mmol/L (98-107) Carbon Dioxide Level 25mmol/L (21-32) Anion Gap 8 (6-14) Blood Urea Nitrogen 19mg/dL (8-26) Creatinine 1.8mg/dL (0.7-1.3) Estimated GFR (Cockcroft-Gault) 39.1 Glucose Level 136mg/dL (70-99) Calcium Level 8.3mg/dL (8.5-10.1) Phosphorus Level 3.0mg/dL (2.6-4.7) Magnesium Level 2.0mg/dL (1.8-2.4) Albumin 2.4g/dL (3.4-5.0) Test 06/10/16 07:27 06/10/16 11:49 Glucose (Fingerstick) 148mg/dL (70-99) 137mg/dL (70-99) Laboratory Tests Test 06/09/16 16:31 06/09/16 20:24 06/10/16 05:20 06/10/16 07:27 Glucose (Fingerstick) 159mg/dL (70-99) 76mg/dL (70-99) 148mg/dL (70-99) Hemoglobin 11.1g/dL (13.0-17.5) Prothrombin Time 24.4SEC (11.7-14.0) Prothromb Time International Ratio 2.4 (0.8-1.1) Sodium Level 140mmol/L (136-145) Potassium Level 4.3mmol/L (3.5-5.1) Chloride Level 107mmol/L (98-107) Carbon Dioxide Level 25mmol/L (21-32) Anion Gap 8 (6-14) Blood Urea Nitrogen 19mg/dL (8-26) Creatinine 1.8mg/dL (0.7-1.3) Estimated GFR (Cockcroft-Gault) 39.1 Glucose Level 136mg/dL (70-99) Calcium Level 8.3mg/dL (8.5-10.1) Phosphorus Level 3.0mg/dL (2.6-4.7) Magnesium Level 2.0mg/dL (1.8-2.4) Albumin 2.4g/dL (3.4-5.0) Test 06/10/16 11:49 Glucose (Fingerstick) 137mg/dL (70-99) Microbiology 06/09/16 Blood Culture - Preliminary, Resulted NO GROWTH AFTER 1 DAY Medications Current Medications Sodium Chloride (Iv Sodium Chloride 0.9% 1000ml Bag) 1,000 ml @ 3,510 mls/hr Q18M IV Last administered on 06/04/16t 03:55; Start 06/04/16 at 21:38; Stop at 22:38; Status DC Morphine Sulfate 4 mg PRN Q15MIN PRN IV/SQ PAIN GREATER THAN 3/10 Last administered on 06/04/16 22:07; Start 06/04/16 at 21:45; Stop 06/05/16 at 21:44 ; Status DC Ondansetron HCl (Zofran) 4 mg 1X ONCE IV Last administered on 06/04/16 22:07 ; Start 06/04/16 at 21:45; Stop 06/04/16 at 21:46; Status DC Acetaminophen (Tylenol) 650 mg 1X ONCE PO Last administered on 06/04/16 22:07 ; Start 06/04/16 at 21:45; Stop 06/04/16 at 21:46; Status DC Ondansetron HCl (Zofran) 4 mg PRN Q8HRS PRN IV NAUSEA/VOMITING; Start 06/04/16 at 23:45; Stop 06/05/16 at 23:44; Status DC Morphine Sulfate 4 mg 4 mg PRN Q2HR PRN IV PAIN Last administered on 06/05/16 05:35; Start 06/04/16 at 23:45; Stop 06/05/16 at 23:44; Status DC Sodium Chloride (Iv Sodium Chloride 0.9% 1000ml Bag) 1,000 ml @ 125 mls/hr Q8H IV Last administered on 06/04/16 01:30; Start 06/04/16 at 23:45; Stop at 11:18; Status DC Acetaminophen 650 mg 650 mg PRN Q4HRS PRN PO FEVER Last administered on 02:24; Start 06/04/16 at 23:45; Stop 06/05/16 at 23:44; Status DC Insulin Human Regular 150 ml @ 0 mls/hr 1X ONCE IV Last administered on 02:46; Start 06/05/16 at 00:00; Stop 06/05/16 at 08:26; Status DC Ceftriaxone Sodium/Sodium Chloride (Rocephin/Iv Sodium Chloride 0.9% 50ml) 50 ml @ 100 mls/hr Q24H IV Last administered on 06/05/16 00:00; Start 06/05/16 at 00:00; Stop 06/05/16 at 09:43; Status DC Levothyroxine Sodium (Synthroid) 100 mcg DAILY07 PO Last administered on 08:54; Start 06/05/16 at 08:15; Stop 06/05/16 at 20:29; Status DC Warfarin Sodium (Coumadin Per Pharmacy) 1 each PRN DAILY PRN MC SEE COMMENTS Last administered on 06/10/16 13:08; Start 06/05/16 at 08:15 Insulin Detemir (Levemir) 25 units QHS SQ ; Start 06/05/16 at 21:00; Stop at 11:27; Status DC Insulin Detemir (Levemir) 40 units DAILY08 SQ Last administered on 06/06/16 08 :14; Start 06/05/16 at 08:15; Stop 06/06/16 at 11:27; Status DC Insulin Aspart (Novolog) 30 units TIDAC SQ Last administered on 06/06/16 17:48 ; Start 06/05/16 at 08:30; Stop 06/07/16 at 11:23; Status DC Insulin Aspart (Novolog) 0-9 UNITS TIDWMEALS SQ Last administered on 06/09/16 17:52; Start 06/05/16 at 12:00 Dextrose (Dextrose 50%-Water Syringe) 12.5 gm PRN Q15MIN PRN IV SEE COMMENTS; Start 06/05/16 at 08:15 Heparin Sodium (Porcine) 5000 unit 5,000 unit Q12HR SQ Last administered on 08:13; Start 06/05/16 at 09:00; Stop 06/06/16 at 13:45; Status DC Piperacillin Sod/ Tazobactam Sod 2.25 gm/Sodium Chloride 50 ml @ 100 mls/hr Q6HRS IV Last administered on 06/08/16 05:55; Start 06/05/16 at 12:00; Stop at 11:29; Status DC Daptomycin/Sodium Chloride (Cubicin/Iv Sodium Chloride 0.9% 50ml) 50 ml @ 100 mls/hr ONCE ONCE IV Last administered on 06/05/16 10:34; Start 06/05/16 at 10 :30; Stop 06/05/16 at 10:59; Status DC Fluconazole 100 mg 100 mg DAILY PO Last administered on 06/10/16 08:08; Start 06/05/16 at 10:00 Sodium Chloride 1,000 ml @ 125 mls/hr Q8H IV ; Start 06/05/16 at 11:30; Status UNV Sodium Chloride (Iv Sodium Chloride 0.45%) 1,000 ml @ 125 mls/hr Q8H IV Last administered on 06/08/16 03:30; Start 06/05/16 at 11:30; Stop 06/08/16 at 19:27 ; Status DC Warfarin Sodium (Coumadin) 5 mg QMWF PO Last administered on 06/08/16 16:48; Start 06/05/16 at 17:00; Stop 06/09/16 at 11:49; Status DC Warfarin Sodium (Coumadin) 7.5 mg QTUTHSASU PO Last administered on 06/07/16 15:34; Start 06/06/16 at 16:00; Stop 06/09/16 at 11:49; Status DC Levothyroxine Sodium (Synthroid) 125 mcg DAILY07 PO Last administered on 05:41; Start 06/06/16 at 07:00 Prednisone (Prednisone) 5 mg DAILY PO Last administered on 06/10/16 08:07; Start 06/06/16 at 09:00 Tramadol HCl (Ultram) 50 mg PRN Q6HRS PRN PO pain; Start 06/05/16 at 19:00; Stop 06/06/16 at 13:55; Status DC Gabapentin (Neurontin) 600 mg [id number] PO Last administered on 06/10/16 08:07; Start 06/05/16 at 21:00 Losartan Potassium (Cozaar) 100 mg DAILY PO Last administered on 06/06/16 08: 06; Start 06/06/16 at 09:00; Stop 06/06/16 at 13:45; Status DC Calcium Carbonate/ Glycine (Tums) 500 mg PRN AFTMEALHC PRN PO INDIGESTION; Start 06/05/16 at 19:00 Acetaminophen (Tylenol) 650 mg PRN Q6HRS PRN PO MILD PAIN Last administered on 06/06/16 06:36; Start 06/06/16 at 04:30 Diphenhydramine HCl (Benadryl) 25 mg PRN Q6HRS PRN PO ITCHING Last administered on 06/07/16 06:17; Start 06/06/16 at 10:45 Insulin Detemir (Levemir) 30 units DAILY08 SQ Last administered on 06/10/16 08 :11; Start 06/07/16 at 08:00 Insulin Detemir 20 units 20 units QHS SQ Last administered on 06/08/16 20:58; Start 06/06/16 at 21:00 Magnesium Sulfate/ Dextrose 100 ml @ 25 mls/hr 1X ONCE IV Last administered on 06/06/16 12:19; Start 06/06/16 at 11:45; Stop 06/06/16 at 15:44; Status DC Magnesium Sulfate/ Dextrose (Magnesium Sulfate PREMIX 2GM) 50 ml @ 25 mls/hr 1X ONCE IV ; Start 06/06/16 at 12:30; Stop 06/06/16 at 14:29; Status Cancel Hydralazine HCl (Apresoline) 10 mg PRN Q4HRS PRN IVP ELEVATED BP, SEE COMMENTS ; Start 06/06/16 at 14:00 Ondansetron HCl (Zofran) 4 mg PRN Q6HRS PRN IV NAUSEA/VOMITING; Start 06/06/16 at 14:00 Tramadol HCl (Ultram) 50 mg PRN Q6HRS PRN PO MOSERATE - SEVERE PAIN; Start at 14:00 Insulin Aspart (Novolog) 20 units TIDAC SQ Last administered on 06/10/16 12:12 ; Start 06/07/16 at 11:30 Tamsulosin HCl (Flomax) 0.4 mg QHS PO Last administered on 06/09/16 20:25; Start 06/07/16 at 21:00; Stop 06/10/16 at 12:50; Status DC Diphenhydramine HCl 50 mg 50 mg PRN Q6HRS PRN PO ITCHING Last administered on 17:06; Start 06/07/16 at 15:45 Ceftriaxone Sodium 2 gm/ Sodium Chloride 100 ml @ 200 mls/hr Q24H IV Last administered on 06/10/16 12:05; Start 06/08/16 at 12:00 Magnesium Sulfate/ Dextrose (Magnesium Sulfate PREMIX 2GM) 50 ml @ 25 mls/hr PRN DAILY PRN IV for Mag < 1.7 on am labs; Start 06/09/16 at 09:45 Warfarin Sodium (Coumadin - No Dose Today) 1 each 1X WARF ONCE MC ; Start 06/09 at 16:00; Stop 06/09/16 at 16:01; Status DC Acetylcysteine (Mucomyst 20% Oral Solution) 600 mg BID PO Last administered on 06/10/16 08:08; Start 06/09/16 at 21:00; Stop 06/11/16 at 20:59 Lactobacillus Acidophilus (Bacid, Rabia-Bid) 1 tab TIDWMEALS PO Last administered on 06/10/16 12:04; Start 06/10/16 at 12:00 Ascorbic Acid (Vitamin C) 500 mg BID PO Last administered on 06/10/16 12:05; Start 06/10/16 at 11:00 Multivitamins (Thera M Plus) 1 tab DAILY PO Last administered on 06/10/16 12: 04; Start 06/10/16 at 10:30 Tamsulosin HCl (Flomax) 0.4 mg BID PO ; Start 06/10/16 at 21:00 Warfarin Sodium (Coumadin - No Dose Today) 1 each 1X WARF ONCE MC ; Start 06/10 at 16:00; Stop 06/10/16 at 16:01 Active Scripts Active Reported Novolin N (Nph, Human Insulin Isophane) 100 Unit/1 Ml Vial 20-25 Unit SQ QHS Novolog (Insulin Aspart) 100 Unit/1 Ml Cartridge 30 Unit SQ TIDWMEALS Triamcinolone Acetonide 0.1% Cream (Triamcinolone Acetonide) 15 Gm Cream..g. 1 Miles TP Tramadol Hcl 50 Mg Tablet 1 Tab PO PRN Q6HRS Calcium (Calcium Carbonate) 600 Mg Tablet 1,200 Mg PO Warfarin Sodium 7.5 Mg Tablet 7.5 Mg PO QTUTHSASU Warfarin Sodium 5 Mg Tablet 1 Tab PO QMWF Daily Multiple Vitamin (Multivitamin) 1 Each Tablet 1 Each PO Gabapentin 600 Mg Tablet 1,200 Mg PO HS Gabapentin 600 Mg Tablet 600 Mg PO [id number] Losartan Potassium 100 Mg Tablet 100 Mg PO DAILY Prednisone 1 Mg Tablet 4 Tab PO DAILY Levothyroxine Sodium 125 Mcg Tablet 1 Tab PO DAILY Vitals/I & O Vital Sign - Last 24 Hours 4/2506/09/16 06/09/16 06/09/16 15:00 19:00 20:00 23:00 Temp 98.0 98.4 97.7 98.0 98.4 97.7 Pulse 80 89 89 Resp 20 20 B/P 136/78 153/66 161/87 Pulse Ox 99 96 98 O2 Delivery Room Air Room Air Room Air Room Air 06/10/16 06/10/16 06/10/16 06/10/16 03:00 07:25 07:50 10:34 Temp 98.1 97.5 97.9 98.1 97.5 97.9 Pulse 89 92 94 Resp 18 B/P 146/87 142/79 148/81 Pulse Ox 95 97 98 O2 Delivery Room Air Room Air Room Air Room Air Intake and Output 06/09/16 06/09/16 06/10/16 15:00 23:00 07:00 Intake Total 500 ml 250 ml 900 ml Output Total 1700 ml Balance 500 ml 250 ml -800 ml SHEREEN KAY MD Jun 10, 2016 14:59
[2016-06-10 19:00] VITALS: BP 164/85
[2016-06-10] MEDS: TAMSULOSIN 0.4 MG CAP.ER.24H. PO SCH (20:33)
[2016-06-10 23:00] VITALS: BP 162/87
[2016-06-11] VITALS (10 sets, daily range): BP systolic 119–156; BP diastolic 58–92
[2016-06-11 04:28] LABS: BASO % 0 % (0-3); EOS % 8 % (0-3); HEMATOCRIT 32.2 % (39.0-53.0); HEMOGLOBIN 10.9 g/dL (13.0-17.5); LYMPH % 27 % (24-48); MEAN CORPUSCULAR HEMOGLOBIN 30 pg (25-35); MEAN CORPUSCULAR HGB CONC 34 g/dL (31-37); MEAN CORPUSCULAR VOLUME 90 fL (79-100); MONO % 10 % (0-9); NEUT % 55 % (31-73); PLATELET COUNT 227 x10^3/uL (140-400); RED BLOOD COUNT 3.57 x10^6/uL (4.30-5.70); RED CELL DISTRIBUTION WIDTH 12.7 % (11.5-14.5); WHITE BLOOD COUNT 7.6 x10^3/uL (4.0-11.0)
[2016-06-11 04:39] LABS: INR 1.9 (0.8-1.1); PROTHROMBIN TIME PATIENT 20.3 SEC (11.7-14.0)
[2016-06-11 04:56] LABS: ALBUMIN 2.4 g/dL (3.4-5.0); CREATININE 1.5 mg/dL (0.7-1.3); GFR 48.2; PHOSPHORUS 2.8 mg/dL (2.6-4.7); POTASSIUM 4.2 mmol/L (3.5-5.1)
[2016-06-11] MEDS: LEVOTHYROXINE 125 MCG TABLET PO SCH (05:14)
[2016-06-11] MEDS: INSULIN ASPART 300 UNITS/3 ML INSULN.PEN SQ SCH ×6 (07:30→17:18)
[2016-06-11] MEDS: INSULIN DETEMIR 300 UNITS/3 ML INSULN.PEN. SQ SCH ×2 (08:00→21:41)
[2016-06-11] MEDS: LACTOBACILLUS ACIDOPH & BULGAR 1 TABLET. PO SCH ×3 (08:00→17:12)
[2016-06-11] MEDS: TAMSULOSIN 0.4 MG CAP.ER.24H. PO SCH ×2 (09:00→21:36)
[2016-06-11] MEDS: ACETYLCYSTEINE 20% ORAL SOLN 600 MG/3 ML SYRINGE. PO SCH ×2 (09:00→21:00)
[2016-06-11] MEDS: GABAPENTIN 300 MG CAPSULE. PO SCH ×2 (09:00→17:08)
[2016-06-11] MEDS: ASCORBIC ACID 500 MG TABLET PO SCH ×2 (09:00→21:36)
--- NOTE | 2016-06-11 09:26 | PDOC ---
PROGRESS NOTES Subjective Subjective "I guess I'm getting something done to help my legs?" Objective Objective Vascular Surgery follow up: O: Texting on phone and does not stop during our conversation. Somewhat distracted. Reviewed wound care notes re: bilat lower extremity wounds. Will not undress them at this time. INR 1.9 today. CR 1.5 Pt is NPO for probable AARO with interventional radiology today. Assessment/Plan: 1. PAD now with cellulitis and toe ulcers to right foot and left medial ankle. Await interventional radiology procedure today. MRI of the foot does not appear to indicate osteo. Continue LARRY stockings and bilat lower extremity elevation to reduce swelling. Consider antiplatelet therapy once arterial circulation more definitive. 2. CKD. Improvement in creatinine since admission. 3. DM. Uncontrolled upon admit. Better control at this point. 4. Cellulitis. Antibiotics per ID. Vital Signs Date Time Temp Pulse Resp B/P Pulse Ox O2 Delivery O2 Flow Rate FiO2 06/11/16 07:00 97.9 93 18 152/77 96 Room Air 97.9 Intake and Output 06/11/16 06:59 Intake Total 550 ml Output Total 4825 ml Balance -4275 ml Intake Oral 450 ml IV Total 100 ml Output Urine Total 4825 ml # Bowel Movements 1 Assessment Assessment Problems Medical Problems: (1) Diabetic foot ulcer Status: Acute (2) Hyperglycemia Status: Acute (3) Pancreatitis Status: Acute (4) Sepsis Status: Acute Comment Review of Relevant I have reviewed the following items randy (where applicable) has been applied. Labs Laboratory Tests Test 06/09/16 11:26 06/09/16 16:31 06/09/16 20:24 06/10/16 05:20 Glucose (Fingerstick) 123mg/dL (70-99) 159mg/dL (70-99) 76mg/dL (70-99) Hemoglobin 11.1g/dL (13.0-17.5) Prothrombin Time 24.4SEC (11.7-14.0) Prothromb Time International Ratio 2.4 (0.8-1.1) Sodium Level 140mmol/L (136-145) Potassium Level 4.3mmol/L (3.5-5.1) Chloride Level 107mmol/L (98-107) Carbon Dioxide Level 25mmol/L (21-32) Anion Gap 8 (6-14) Blood Urea Nitrogen 19mg/dL (8-26) Creatinine 1.8mg/dL (0.7-1.3) Estimated GFR (Cockcroft-Gault) 39.1 Glucose Level 136mg/dL (70-99) Calcium Level 8.3mg/dL (8.5-10.1) Phosphorus Level 3.0mg/dL (2.6-4.7) Magnesium Level 2.0mg/dL (1.8-2.4) Albumin 2.4g/dL (3.4-5.0) Test 06/10/16 07:27 06/10/16 11:49 06/10/16 16:38 06/10/16 20:32 Glucose (Fingerstick) 148mg/dL (70-99) 137mg/dL (70-99) 113mg/dL (70-99) 234mg/dL (70-99) Test 06/11/16 04:00 06/11/16 08:14 White Blood Count 7.6x10^3/uL (4.0-11.0) Red Blood Count 3.57x10^6/uL (4.30-5.70) Hemoglobin 10.9g/dL (13.0-17.5) Hematocrit 32.2% (39.0-53.0) Mean Corpuscular Volume 90fL (79-100) Mean Corpuscular Hemoglobin 30pg (25-35) Mean Corpuscular Hemoglobin Concent 34g/dL (31-37) Red Cell Distribution Width 12.7% (11.5-14.5) Platelet Count 227x10^3/uL (140-400) Neutrophils (%) (Auto) 55% (31-73) Lymphocytes (%) (Auto) 27% (24-48) Monocytes (%) (Auto) 10% (0-9) Eosinophils (%) (Auto) 8% (0-3) Basophils (%) (Auto) 0% (0-3) Neutrophils # (Auto) 4.2x10^3uL (1.8-7.7) Lymphocytes # (Auto) 2.0x10^3/uL (1.0-4.8) Monocytes # (Auto) 0.8x10^3/uL (0.0-1.1) Eosinophils # (Auto) 0.6x10^3/uL (0.0-0.7) Basophils # (Auto) 0.0x10^3/uL (0.0-0.2) Prothrombin Time 20.3SEC (11.7-14.0) Prothromb Time International Ratio 1.9 (0.8-1.1) Sodium Level 138mmol/L (136-145) Potassium Level 4.2mmol/L (3.5-5.1) Chloride Level 106mmol/L (98-107) Carbon Dioxide Level 25mmol/L (21-32) Anion Gap 7 (6-14) Blood Urea Nitrogen 18mg/dL (8-26) Creatinine 1.5mg/dL (0.7-1.3) Estimated GFR (Cockcroft-Gault) 48.2 Glucose Level 148mg/dL (70-99) Calcium Level 9.0mg/dL (8.5-10.1) Phosphorus Level 2.8mg/dL (2.6-4.7) Magnesium Level 1.9mg/dL (1.8-2.4) Albumin 2.4g/dL (3.4-5.0) Glucose (Fingerstick) 155mg/dL (70-99) Laboratory Tests Test 06/10/16 11:49 06/10/16 16:38 06/10/16 20:32 06/11/16 04:00 Glucose (Fingerstick) 137mg/dL (70-99) 113mg/dL (70-99) 234mg/dL (70-99) White Blood Count 7.6x10^3/uL (4.0-11.0) Red Blood Count 3.57x10^6/uL (4.30-5.70) Hemoglobin 10.9g/dL (13.0-17.5) Hematocrit 32.2% (39.0-53.0) Mean Corpuscular Volume 90fL (79-100) Mean Corpuscular Hemoglobin 30pg (25-35) Mean Corpuscular Hemoglobin Concent 34g/dL (31-37) Red Cell Distribution Width 12.7% (11.5-14.5) Platelet Count 227x10^3/uL (140-400) Neutrophils (%) (Auto) 55% (31-73) Lymphocytes (%) (Auto) 27% (24-48) Monocytes (%) (Auto) 10% (0-9) Eosinophils (%) (Auto) 8% (0-3) Basophils (%) (Auto) 0% (0-3) Neutrophils # (Auto) 4.2x10^3uL (1.8-7.7) Lymphocytes # (Auto) 2.0x10^3/uL (1.0-4.8) Monocytes # (Auto) 0.8x10^3/uL (0.0-1.1) Eosinophils # (Auto) 0.6x10^3/uL (0.0-0.7) Basophils # (Auto) 0.0x10^3/uL (0.0-0.2) Prothrombin Time 20.3SEC (11.7-14.0) Prothromb Time International Ratio 1.9 (0.8-1.1) Sodium Level 138mmol/L (136-145) Potassium Level 4.2mmol/L (3.5-5.1) Chloride Level 106mmol/L (98-107) Carbon Dioxide Level 25mmol/L (21-32) Anion Gap 7 (6-14) Blood Urea Nitrogen 18mg/dL (8-26) Creatinine 1.5mg/dL (0.7-1.3) Estimated GFR (Cockcroft-Gault) 48.2 Glucose Level 148mg/dL (70-99) Calcium Level 9.0mg/dL (8.5-10.1) Phosphorus Level 2.8mg/dL (2.6-4.7) Magnesium Level 1.9mg/dL (1.8-2.4) Albumin 2.4g/dL (3.4-5.0) Test 06/11/16 08:14 Glucose (Fingerstick) 155mg/dL (70-99) Microbiology 06/09/16 Blood Culture - Preliminary, Resulted NO GROWTH AFTER 1 DAY Medications Current Medications Sodium Chloride (Iv Sodium Chloride 0.9% 1000ml Bag) 1,000 ml @ 3,510 mls/hr Q18M IV Last administered on 06/04/16t 03:55; Start 06/04/16 at 21:38; Stop at 22:38; Status DC Morphine Sulfate 4 mg PRN Q15MIN PRN IV/SQ PAIN GREATER THAN 3/10 Last administered on 06/04/16 22:07; Start 06/04/16 at 21:45; Stop 06/05/16 at 21:44 ; Status DC Ondansetron HCl (Zofran) 4 mg 1X ONCE IV Last administered on 06/04/16 22:07 ; Start 06/04/16 at 21:45; Stop 06/04/16 at 21:46; Status DC Acetaminophen (Tylenol) 650 mg 1X ONCE PO Last administered on 06/04/16 22:07 ; Start 06/04/16 at 21:45; Stop 06/04/16 at 21:46; Status DC Ondansetron HCl (Zofran) 4 mg PRN Q8HRS PRN IV NAUSEA/VOMITING; Start 06/04/16 at 23:45; Stop 06/05/16 at 23:44; Status DC Morphine Sulfate 4 mg 4 mg PRN Q2HR PRN IV PAIN Last administered on 06/05/16 05:35; Start 06/04/16 at 23:45; Stop 06/05/16 at 23:44; Status DC Sodium Chloride (Iv Sodium Chloride 0.9% 1000ml Bag) 1,000 ml @ 125 mls/hr Q8H IV Last administered on 06/04/16 01:30; Start 06/04/16 at 23:45; Stop at 11:18; Status DC Acetaminophen 650 mg 650 mg PRN Q4HRS PRN PO FEVER Last administered on 02:24; Start 06/04/16 at 23:45; Stop 06/05/16 at 23:44; Status DC Insulin Human Regular 150 ml @ 0 mls/hr 1X ONCE IV Last administered on 02:46; Start 06/05/16 at 00:00; Stop 06/05/16 at 08:26; Status DC Ceftriaxone Sodium/Sodium Chloride (Rocephin/Iv Sodium Chloride 0.9% 50ml) 50 ml @ 100 mls/hr Q24H IV Last administered on 06/05/16 00:00; Start 06/05/16 at 00:00; Stop 06/05/16 at 09:43; Status DC Levothyroxine Sodium (Synthroid) 100 mcg DAILY07 PO Last administered on 08:54; Start 06/05/16 at 08:15; Stop 06/05/16 at 20:29; Status DC Warfarin Sodium (Coumadin Per Pharmacy) 1 each PRN DAILY PRN MC SEE COMMENTS Last administered on 06/10/16 13:08; Start 06/05/16 at 08:15 Insulin Detemir (Levemir) 25 units QHS SQ ; Start 06/05/16 at 21:00; Stop at 11:27; Status DC Insulin Detemir (Levemir) 40 units DAILY08 SQ Last administered on 06/06/16 08 :14; Start 06/05/16 at 08:15; Stop 06/06/16 at 11:27; Status DC Insulin Aspart (Novolog) 30 units TIDAC SQ Last administered on 06/06/16 17:48 ; Start 06/05/16 at 08:30; Stop 06/07/16 at 11:23; Status DC Insulin Aspart (Novolog) 0-9 UNITS TIDWMEALS SQ Last administered on 06/09/16 17:52; Start 06/05/16 at 12:00 Dextrose (Dextrose 50%-Water Syringe) 12.5 gm PRN Q15MIN PRN IV SEE COMMENTS; Start 06/05/16 at 08:15 Heparin Sodium (Porcine) 5000 unit 5,000 unit Q12HR SQ Last administered on 08:13; Start 06/05/16 at 09:00; Stop 06/06/16 at 13:45; Status DC Piperacillin Sod/ Tazobactam Sod 2.25 gm/Sodium Chloride 50 ml @ 100 mls/hr Q6HRS IV Last administered on 06/08/16 05:55; Start 06/05/16 at 12:00; Stop at 11:29; Status DC Daptomycin/Sodium Chloride (Cubicin/Iv Sodium Chloride 0.9% 50ml) 50 ml @ 100 mls/hr ONCE ONCE IV Last administered on 06/05/16 10:34; Start 06/05/16 at 10 :30; Stop 06/05/16 at 10:59; Status DC Fluconazole 100 mg 100 mg DAILY PO Last administered on 06/10/16 08:08; Start 06/05/16 at 10:00 Sodium Chloride 1,000 ml @ 125 mls/hr Q8H IV ; Start 06/05/16 at 11:30; Status UNV Sodium Chloride (Iv Sodium Chloride 0.45%) 1,000 ml @ 125 mls/hr Q8H IV Last administered on 06/08/16 03:30; Start 06/05/16 at 11:30; Stop 06/08/16 at 19:27 ; Status DC Warfarin Sodium (Coumadin) 5 mg QMWF PO Last administered on 06/08/16 16:48; Start 06/05/16 at 17:00; Stop 06/09/16 at 11:49; Status DC Warfarin Sodium (Coumadin) 7.5 mg QTUTHSASU PO Last administered on 06/07/16 15:34; Start 06/06/16 at 16:00; Stop 06/09/16 at 11:49; Status DC Levothyroxine Sodium (Synthroid) 125 mcg DAILY07 PO Last administered on 05:41; Start 06/06/16 at 07:00 Prednisone (Prednisone) 5 mg DAILY PO Last administered on 06/10/16 08:07; Start 06/06/16 at 09:00 Tramadol HCl (Ultram) 50 mg PRN Q6HRS PRN PO pain; Start 06/05/16 at 19:00; Stop 06/06/16 at 13:55; Status DC Gabapentin (Neurontin) 600 mg [id number] PO Last administered on 06/10/16 16:59; Start 06/05/16 at 21:00 Losartan Potassium (Cozaar) 100 mg DAILY PO Last administered on 06/06/16 08: 06; Start 06/06/16 at 09:00; Stop 06/06/16 at 13:45; Status DC Calcium Carbonate/ Glycine (Tums) 500 mg PRN AFTMEALHC PRN PO INDIGESTION; Start 06/05/16 at 19:00 Acetaminophen (Tylenol) 650 mg PRN Q6HRS PRN PO MILD PAIN Last administered on 06/06/16 06:36; Start 06/06/16 at 04:30 Diphenhydramine HCl (Benadryl) 25 mg PRN Q6HRS PRN PO ITCHING Last administered on 06/07/16 06:17; Start 06/06/16 at 10:45 Insulin Detemir (Levemir) 30 units DAILY08 SQ Last administered on 06/10/16 08 :11; Start 06/07/16 at 08:00 Insulin Detemir 20 units 20 units QHS SQ Last administered on 06/10/16 20:39; Start 06/06/16 at 21:00 Magnesium Sulfate/ Dextrose 100 ml @ 25 mls/hr 1X ONCE IV Last administered on 06/06/16 12:19; Start 06/06/16 at 11:45; Stop 06/06/16 at 15:44; Status DC Magnesium Sulfate/ Dextrose (Magnesium Sulfate PREMIX 2GM) 50 ml @ 25 mls/hr 1X ONCE IV ; Start 06/06/16 at 12:30; Stop 06/06/16 at 14:29; Status Cancel Hydralazine HCl (Apresoline) 10 mg PRN Q4HRS PRN IVP ELEVATED BP, SEE COMMENTS ; Start 06/06/16 at 14:00 Ondansetron HCl (Zofran) 4 mg PRN Q6HRS PRN IV NAUSEA/VOMITING; Start 06/06/16 at 14:00 Tramadol HCl (Ultram) 50 mg PRN Q6HRS PRN PO MOSERATE - SEVERE PAIN; Start at 14:00 Insulin Aspart (Novolog) 20 units TIDAC SQ Last administered on 06/10/16 12:12 ; Start 06/07/16 at 11:30 Tamsulosin HCl (Flomax) 0.4 mg QHS PO Last administered on 06/09/16 20:25; Start 06/07/16 at 21:00; Stop 06/10/16 at 12:50; Status DC Diphenhydramine HCl 50 mg 50 mg PRN Q6HRS PRN PO ITCHING Last administered on 17:06; Start 06/07/16 at 15:45 Ceftriaxone Sodium 2 gm/ Sodium Chloride 100 ml @ 200 mls/hr Q24H IV Last administered on 06/10/16 12:05; Start 06/08/16 at 12:00 Magnesium Sulfate/ Dextrose (Magnesium Sulfate PREMIX 2GM) 50 ml @ 25 mls/hr PRN DAILY PRN IV for Mag < 1.7 on am labs; Start 06/09/16 at 09:45 Warfarin Sodium (Coumadin - No Dose Today) 1 each 1X WARF ONCE MC ; Start 06/09 at 16:00; Stop 06/09/16 at 16:01; Status DC Acetylcysteine (Mucomyst 20% Oral Solution) 600 mg BID PO Last administered on 06/10/16 20:33; Start 06/09/16 at 21:00; Stop 06/11/16 at 20:59 Lactobacillus Acidophilus (Bacid, Rabia-Bid) 1 tab TIDWMEALS PO Last administered on 06/10/16 16:58; Start 06/10/16 at 12:00 Ascorbic Acid (Vitamin C) 500 mg BID PO Last administered on 06/10/16 20:33; Start 06/10/16 at 11:00 Multivitamins (Thera M Plus) 1 tab DAILY PO Last administered on 06/10/16 12: 04; Start 06/10/16 at 10:30 Tamsulosin HCl (Flomax) 0.4 mg BID PO Last administered on 06/10/16 20:33; Start 06/10/16 at 21:00 Warfarin Sodium (Coumadin - No Dose Today) 1 each 1X WARF ONCE MC Last administered on 06/10/16 16:00; Start 06/10/16 at 16:00; Stop 06/10/16 at 16:01 ; Status DC Active Scripts Active Reported Novolin N (Nph, Human Insulin Isophane) 100 Unit/1 Ml Vial 20-25 Unit SQ QHS Novolog (Insulin Aspart) 100 Unit/1 Ml Cartridge 30 Unit SQ TIDWMEALS Triamcinolone Acetonide 0.1% Cream (Triamcinolone Acetonide) 15 Gm Cream..g. 1 Miles TP Tramadol Hcl 50 Mg Tablet 1 Tab PO PRN Q6HRS Calcium (Calcium Carbonate) 600 Mg Tablet 1,200 Mg PO Warfarin Sodium 7.5 Mg Tablet 7.5 Mg PO QTUTHSASU Warfarin Sodium 5 Mg Tablet 1 Tab PO QMWF Daily Multiple Vitamin (Multivitamin) 1 Each Tablet 1 Each PO Gabapentin 600 Mg Tablet 1,200 Mg PO HS Gabapentin 600 Mg Tablet 600 Mg PO [id number] Losartan Potassium 100 Mg Tablet 100 Mg PO DAILY Prednisone 1 Mg Tablet 4 Tab PO DAILY Levothyroxine Sodium 125 Mcg Tablet 1 Tab PO DAILY Vitals/I & O Vital Sign - Last 24 Hours 06/10/16 06/10/16 06/10/16 06/10/16 10:34 15:00 19:00 19:37 Temp 97.9 98.2 98.1 97.9 98.2 98.1 Pulse 94 91 91 Resp 18 18 20 B/P 148/81 166/80 164/85 Pulse Ox 98 95 97 O2 Delivery Room Air Room Air Room Air Room Air 06/10/16 06/11/16 06/11/16 23:00 03:00 07:00 Temp 98.2 98.2 97.9 98.2 98.2 97.9 Pulse 80 99 93 Resp 18 B/P 162/87 156/92 152/77 Pulse Ox 98 93 96 O2 Delivery Room Air Room Air Room Air Intake and Output 06/10/16 06/10/16 06/11/16 14:59 22:59 06:59 Intake Total 270 ml 180 ml 100 ml Output Total 875 ml 650 ml 3300 ml Balance -605 ml -470 ml -3200 ml NOEL ROCHE APRN Jun 11, 2016 09:26
--- NOTE | 2016-06-11 09:27 | PDOC ---
Infectious Disease Note Subjective Subjective Persistent pruritic rash better Back itchy Stools are less Denies pain, SOA, wheezing ROS ROS GEN: Denies fevers, chills, sweats HEENT: Denies blurred vision, sore throat CV: Denies chest pain RESP: Denies shortness of air, cough GI: Denies n/v/d NEURO: Denies confusion, dizziness MSK: Denies weakness, joint pain/swelling Vital Sign Vital Signs Vital Signs Date Time Temp Pulse Resp B/P Pulse Ox O2 Delivery O2 Flow Rate FiO2 06/11/16 07:00 97.9 93 18 152/77 96 Room Air 97.9 Physical Exam PHYSICAL EXAM GENERAL: NAD, Alert, in chair HEENT: PERRL, OC/OP - clear NECK: Supple, no JVD, no LN LUNGS: Clear HEART: S1S2, no gallop, no murmur ABD: Soft, NT, no organomegaly, no rebound, obese Fo[place] EXT: No edema, no cyanosis PATROL AGENT: Alert, 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, no focal neurologic deficit SKIN: light macular rash trunk and upper thighs - better IV: ok Labs Lab Laboratory Tests Test 06/10/16 11:49 06/10/16 16:38 06/10/16 20:32 06/11/16 04:00 Glucose (Fingerstick) 137mg/dL (70-99) 113mg/dL (70-99) 234mg/dL (70-99) White Blood Count 7.6x10^3/uL (4.0-11.0) Red Blood Count 3.57x10^6/uL (4.30-5.70) Hemoglobin 10.9g/dL (13.0-17.5) Hematocrit 32.2% (39.0-53.0) Mean Corpuscular Volume 90fL (79-100) Mean Corpuscular Hemoglobin 30pg (25-35) Mean Corpuscular Hemoglobin Concent 34g/dL (31-37) Red Cell Distribution Width 12.7% (11.5-14.5) Platelet Count 227x10^3/uL (140-400) Neutrophils (%) (Auto) 55% (31-73) Lymphocytes (%) (Auto) 27% (24-48) Monocytes (%) (Auto) 10% (0-9) Eosinophils (%) (Auto) 8% (0-3) Basophils (%) (Auto) 0% (0-3) Neutrophils # (Auto) 4.2x10^3uL (1.8-7.7) Lymphocytes # (Auto) 2.0x10^3/uL (1.0-4.8) Monocytes # (Auto) 0.8x10^3/uL (0.0-1.1) Eosinophils # (Auto) 0.6x10^3/uL (0.0-0.7) Basophils # (Auto) 0.0x10^3/uL (0.0-0.2) Prothrombin Time 20.3SEC (11.7-14.0) Prothromb Time International Ratio 1.9 (0.8-1.1) Sodium Level 138mmol/L (136-145) Potassium Level 4.2mmol/L (3.5-5.1) Chloride Level 106mmol/L (98-107) Carbon Dioxide Level 25mmol/L (21-32) Anion Gap 7 (6-14) Blood Urea Nitrogen 18mg/dL (8-26) Creatinine 1.5mg/dL (0.7-1.3) Estimated GFR (Cockcroft-Gault) 48.2 Glucose Level 148mg/dL (70-99) Calcium Level 9.0mg/dL (8.5-10.1) Phosphorus Level 2.8mg/dL (2.6-4.7) Magnesium Level 1.9mg/dL (1.8-2.4) Albumin 2.4g/dL (3.4-5.0) Test 06/11/16 08:14 Glucose (Fingerstick) 155mg/dL (70-99) Objective Assessment Strep sepsis - POA 06/04. Group B Fever LLE cellulitis Left 5th toe ? abscess and med ankle wound Right 2 and 3 toe infections ? PAD EVON on CKD single kidney. followed by Dr. Masters Leukocytosis - better Plan Plan of Care F/u Repeat Blood cults times 2 cont Probitoics Add nystatin powder Dose Rocephin and monitor Will need to monitor INR with fluconazole and coumadin Dapto times one, 06/05 Await further vascular input VINCE LEBLANC MD Jun 11, 2016 09:27
--- NOTE | 2016-06-11 09:40 | PDOC ---
SUBJECTIVE ROS CKD + PVD? doing OK overall x c/o being NPO CVS: no Orthopnea, no CP RESP: no SOB, no FERNÁNDEZ GI: no Nausea, no Vomiting : no Dysuria, no Urgency OBJECTIVE Vital Signs Vital Signs Date Time Temp Pulse Resp B/P Pulse Ox O2 Delivery O2 Flow Rate FiO2 06/11/16 07:00 97.9 93 18 152/77 96 Room Air 97.9 I & 0 Intake and Output 06/11/16 07:00 Intake Total 550 ml Output Total 4825 ml Balance -4275 ml Intake Oral 450 ml IV Total 100 ml Output Urine Total 4825 ml # Bowel Movements 1 PHYSICAL EXAM Physical Exam General Appearance: Awake Alert Oriented x 3 In no Distress - Obese Eyes: VIsion Unchanged Conjunctiva Normal EN: No EN Drainage Mucous Memb. moist Neck: no JVD no JVP Supple no Thyromegaly CVS: S1 S2 + Murmur No Gallop No Rub none Edema Resp: no Rales no Rhonchi no Acc. Muscle use GI: BS +ve NO Bruit Non Tender Non Distended - obese : no CVA tenderness; no Suprapubic Tenderness Assessment & Plan Urinary retention - Flannery in palce - defer to URO to D/c Flannery when ready CKD III - baseline creat is 1.7ish as of Feb 2016. Single functioning Kdney - creat is now close to same Anemia: Fe is OK, may need EPO PVD with Foot wound - plans for CO2 Angio today- start Gentle IVF with NAC in case of need for IVC given body habitus Discussed Plan of Care and prognosis etc. at length with pt COMMENT/RELEVANT DATA Meds Current Medications Medications (Trade) Dose Ordered Sig/Bereket Start Time Stop Time Status Last Admin Dose Admin Acetaminophen (Tylenol) 650 mg PRN Q6HRS PRN 06/06/16 04:30 06/06/16 06:36 650 MG Acetaminophen 650 mg 650 mg PRN Q4HRS PRN 06/04/16 23:45 06/05/16 23:44 DC 06/05/16 02:24 650 MG Acetylcysteine (Mucomyst 20% Oral Solution) 600 mg BID 06/09/16 21:00 06/11/16 20:59 06/10/16 20:33 600 MG Ascorbic Acid (Vitamin C) 500 mg BID 06/10/16 11:00 06/10/16 20:33 500 MG Calcium Carbonate/ Glycine (Tums) 500 mg PRN AFTMEALHC PRN 06/05/16 19:00 Ceftriaxone Sodium 2 gm/ Sodium Chloride 100 ml @ 200 mls/hr Q24H 06/08/16 12:00 06/10/16 12:05 200 MLS/HR Ceftriaxone Sodium/Sodium Chloride (Rocephin/Iv Sodium Chloride 0.9% 50ml) 50 ml @ 100 mls/hr Q24H 06/05/16 00:00 06/05/16 09:43 DC 06/05/16 00:00 100 MLS/HR Daptomycin/Sodium Chloride (Cubicin/Iv Sodium Chloride 0.9% 50ml) 50 ml @ 100 mls/hr ONCE ONCE 06/05/16 10:30 06/05/16 10:59 DC 06/05/16 10:34 100 MLS/HR Dextrose (Dextrose 50%-Water Syringe) 12.5 gm PRN Q15MIN PRN 06/05/16 08:15 Diphenhydramine HCl (Benadryl) 25 mg PRN Q6HRS PRN 06/06/16 10:45 06/07/16 06:17 25 MG Diphenhydramine HCl 50 mg 50 mg PRN Q6HRS PRN 06/07/16 15:45 06/08/16 17:06 50 MG Fluconazole 100 mg 100 mg DAILY 06/05/16 10:00 06/10/16 08:08 100 MG Gabapentin (Neurontin) 600 mg [id number] 06/05/16 21:00 06/10/16 16:59 600 MG Heparin Sodium (Porcine) 5000 unit 5,000 unit Q12HR 06/05/16 09:00 06/06/16 13:45 DC 06/06/16 08:13 5,000 UNIT Hydralazine HCl (Apresoline) 10 mg PRN Q4HRS PRN 06/06/16 14:00 Insulin Aspart (Novolog) 20 units TIDAC 06/07/16 11:30 06/10/16 12:12 20 UNITS Insulin Detemir (Levemir) 30 units DAILY08 06/07/16 08:00 06/10/16 08:11 30 UNITS Insulin Detemir 20 units 20 units QHS 06/06/16 21:00 06/10/16 20:39 20 UNITS Insulin Human Regular 150 ml @ 0 mls/hr 1X ONCE 06/05/16 00:00 06/05/16 08:26 DC 06/05/16 02:46 8 MLS/HR Lactobacillus Acidophilus (Bacid, Rabia-Bid) 1 tab TIDWMEALS 06/10/16 12:00 06/10/16 16:58 1 TAB Levothyroxine Sodium (Synthroid) 125 mcg DAILY07 06/06/16 07:00 06/10/16 05:41 125 MCG Losartan Potassium (Cozaar) 100 mg DAILY 06/06/16 09:00 06/06/16 13:45 DC 06/06/16 08:06 100 MG Magnesium Sulfate/ Dextrose (Magnesium Sulfate PREMIX 2GM) 50 ml @ 25 mls/hr PRN DAILY PRN 06/09/16 09:45 Magnesium Sulfate/ Dextrose (Magnesium Sulfate PREMIX 4GM) 100 ml @ 25 mls/hr 1X ONCE 06/06/16 11:45 06/06/16 15:44 DC 06/06/16 12:19 25 MLS/HR Morphine Sulfate 4 mg 4 mg PRN Q2HR PRN 06/04/16 23:45 06/05/16 23:44 DC 06/05/16 05:35 4 MG Multivitamins (Thera M Plus) 1 tab DAILY 06/10/16 10:30 06/10/16 12:04 1 TAB Nystatin (Nystop) 1 lucy BID 06/11/16 10:30 Ondansetron HCl (Zofran) 4 mg PRN Q6HRS PRN 06/06/16 14:00 Piperacillin Sod/ Tazobactam Sod 2.25 gm/Sodium Chloride 50 ml @ 100 mls/hr Q6HRS 06/05/16 12:00 06/08/16 11:29 DC 06/08/16 05:55 100 MLS/HR Prednisone (Prednisone) 5 mg DAILY 06/06/16 09:00 06/10/16 08:07 5 MG Sodium Chloride (Iv Sodium Chloride 0.45%) 1,000 ml @ 125 mls/hr Q8H 06/05/16 11:30 06/08/16 19:27 DC 06/08/16 03:30 125 MLS/HR Sodium Chloride (Iv Sodium Chloride 0.9% 1000ml Bag) 1,000 ml @ 125 mls/hr Q8H 06/04/16 23:45 06/05/16 11:18 DC 06/04/16 01:30 125 MLS/HR Tamsulosin HCl (Flomax) 0.4 mg BID 06/10/16 21:00 06/10/16 20:33 0.4 MG Tramadol HCl (Ultram) 50 mg PRN Q6HRS PRN 06/06/16 14:00 Warfarin Sodium (Coumadin - No Dose Today) 1 each 1X WARF ONCE 06/10/16 16:00 06/10/16 16:01 DC 06/10/16 16:00 1 EACH Warfarin Sodium (Coumadin Per Pharmacy) 1 each PRN DAILY PRN 06/05/16 08:15 06/10/16 13:08 1 EACH Warfarin Sodium (Coumadin) 7.5 mg QTUTHSASU 06/06/16 16:00 06/09/16 11:49 DC 06/07/16 15:34 7.5 MG Lab Laboratory Tests Test 06/10/16 11:49 06/10/16 16:38 06/10/16 20:32 06/11/16 04:00 Glucose (Fingerstick) 137mg/dL (70-99) 113mg/dL (70-99) 234mg/dL (70-99) White Blood Count 7.6x10^3/uL (4.0-11.0) Red Blood Count 3.57x10^6/uL (4.30-5.70) Hemoglobin 10.9g/dL (13.0-17.5) Hematocrit 32.2% (39.0-53.0) Mean Corpuscular Volume 90fL (79-100) Mean Corpuscular Hemoglobin 30pg (25-35) Mean Corpuscular Hemoglobin Concent 34g/dL (31-37) Red Cell Distribution Width 12.7% (11.5-14.5) Platelet Count 227x10^3/uL (140-400) Neutrophils (%) (Auto) 55% (31-73) Lymphocytes (%) (Auto) 27% (24-48) Monocytes (%) (Auto) 10% (0-9) Eosinophils (%) (Auto) 8% (0-3) Basophils (%) (Auto) 0% (0-3) Neutrophils # (Auto) 4.2x10^3uL (1.8-7.7) Lymphocytes # (Auto) 2.0x10^3/uL (1.0-4.8) Monocytes # (Auto) 0.8x10^3/uL (0.0-1.1) Eosinophils # (Auto) 0.6x10^3/uL (0.0-0.7) Basophils # (Auto) 0.0x10^3/uL (0.0-0.2) Prothrombin Time 20.3SEC (11.7-14.0) Prothromb Time International Ratio 1.9 (0.8-1.1) Sodium Level 138mmol/L (136-145) Potassium Level 4.2mmol/L (3.5-5.1) Chloride Level 106mmol/L (98-107) Carbon Dioxide Level 25mmol/L (21-32) Anion Gap 7 (6-14) Blood Urea Nitrogen 18mg/dL (8-26) Creatinine 1.5mg/dL (0.7-1.3) Estimated GFR (Cockcroft-Gault) 48.2 Glucose Level 148mg/dL (70-99) Calcium Level 9.0mg/dL (8.5-10.1) Phosphorus Level 2.8mg/dL (2.6-4.7) Magnesium Level 1.9mg/dL (1.8-2.4) Albumin 2.4g/dL (3.4-5.0) Test 06/11/16 08:14 Glucose (Fingerstick) 155mg/dL (70-99) TAMMY WESTON MD Jun 11, 2016 09:40
[2016-06-11] MEDS: IV NORMAL SALINE 1000ML BAG 1,000 ML IV SCH ×2 (10:05→17:13)
[2016-06-11] MEDS: NYSTATIN TOPICAL POWDER 15GM BOTTLE. TP SCH ×2 (10:30→21:37)
--- NOTE | 2016-06-11 11:00 | PDOC ---
PROGRESS NOTES Chief Complaint Chief Complaint Toe cellulitis Sepsis ASSESSMENT AND PLAN: 1. Sepsis: Group B Strep isolated. 2. L toe/foot cellulitis abscess 5th toe, no osteo per MRI. on ceftriax and diflucan 3. R toe infect: 4. Leukocytosis: reactive 2/2 infect. resolved 5. Rash: . Zosyn switched to ceftriax by Dr Lou. symptomatic benadryl prn 6. PAD: unclear extent; appreciate Dr Heard's input: CO2 arteriogram ( decrease dye load) planned, but needs INR <1.8. hold coumadinfor now; monitor INR daily 7. EVON on CKD4: vasomotor etiology; suspect back to baseline creat. single kidney. followed by Dr. Masters 8. DM2: well controlled on current regimen 9. HTN: well controlled. cont current regimen 9. HLD: on statin 10. hx recurrent DVT: off coumadin X2 days monitor INR closely: may need bridge after surg, to OR when INR < 1.8 cont iv abx for now ivf, hold acei decrease aspart to 20u tid, levemir decrease to 30u daily, 20u qhs, SSI. wound care ptot replete Mag warfarin, INR daily bladder scan, notice 700cc urine in US. History of Present Illness History of Present Illness rash improving, less itchy. slept OK NPO for aortogram with runoff no pain mood OK Vitals Vitals Vital Signs Date Time Temp Pulse Resp B/P Pulse Ox O2 Delivery O2 Flow Rate FiO2 06/11/16 07:55 Room Air 06/11/16 07:00 97.9 93 18 152/77 96 97.9 Physical Exam General: Alert, Oriented X3, Cooperative, mild distress Heart: Regular rate, Normal S1, Normal S2 Lungs: Clear Abdomen: Normal bowel sounds, Soft Extremities: No cyanosis, No edema Labs LABS Laboratory Tests Test 06/10/16 11:49 06/10/16 16:38 06/10/16 20:32 06/11/16 04:00 Glucose (Fingerstick) 137mg/dL (70-99) 113mg/dL (70-99) 234mg/dL (70-99) White Blood Count 7.6x10^3/uL (4.0-11.0) Red Blood Count 3.57x10^6/uL (4.30-5.70) Hemoglobin 10.9g/dL (13.0-17.5) Hematocrit 32.2% (39.0-53.0) Mean Corpuscular Volume 90fL (79-100) Mean Corpuscular Hemoglobin 30pg (25-35) Mean Corpuscular Hemoglobin Concent 34g/dL (31-37) Red Cell Distribution Width 12.7% (11.5-14.5) Platelet Count 227x10^3/uL (140-400) Neutrophils (%) (Auto) 55% (31-73) Lymphocytes (%) (Auto) 27% (24-48) Monocytes (%) (Auto) 10% (0-9) Eosinophils (%) (Auto) 8% (0-3) Basophils (%) (Auto) 0% (0-3) Neutrophils # (Auto) 4.2x10^3uL (1.8-7.7) Lymphocytes # (Auto) 2.0x10^3/uL (1.0-4.8) Monocytes # (Auto) 0.8x10^3/uL (0.0-1.1) Eosinophils # (Auto) 0.6x10^3/uL (0.0-0.7) Basophils # (Auto) 0.0x10^3/uL (0.0-0.2) Prothrombin Time 20.3SEC (11.7-14.0) Prothromb Time International Ratio 1.9 (0.8-1.1) Sodium Level 138mmol/L (136-145) Potassium Level 4.2mmol/L (3.5-5.1) Chloride Level 106mmol/L (98-107) Carbon Dioxide Level 25mmol/L (21-32) Anion Gap 7 (6-14) Blood Urea Nitrogen 18mg/dL (8-26) Creatinine 1.5mg/dL (0.7-1.3) Estimated GFR (Cockcroft-Gault) 48.2 Glucose Level 148mg/dL (70-99) Calcium Level 9.0mg/dL (8.5-10.1) Phosphorus Level 2.8mg/dL (2.6-4.7) Magnesium Level 1.9mg/dL (1.8-2.4) Albumin 2.4g/dL (3.4-5.0) Test 06/11/16 08:14 Glucose (Fingerstick) 155mg/dL (70-99) Review of Systems Review of Systems no n.v.d Assessment and Plan Assessmemt and Plan Problems Medical Problems: (1) Diabetic foot ulcer Status: Acute (2) Hyperglycemia Status: Acute (3) Pancreatitis Status: Acute (4) Sepsis Status: Acute Problems: Comment Review of Relevant I have reviewed the following items randy (where applicable) has been applied. Labs Laboratory Tests Test 06/09/16 11:26 06/09/16 16:31 06/09/16 20:24 06/10/16 05:20 Glucose (Fingerstick) 123mg/dL (70-99) 159mg/dL (70-99) 76mg/dL (70-99) Hemoglobin 11.1g/dL (13.0-17.5) Prothrombin Time 24.4SEC (11.7-14.0) Prothromb Time International Ratio 2.4 (0.8-1.1) Sodium Level 140mmol/L (136-145) Potassium Level 4.3mmol/L (3.5-5.1) Chloride Level 107mmol/L (98-107) Carbon Dioxide Level 25mmol/L (21-32) Anion Gap 8 (6-14) Blood Urea Nitrogen 19mg/dL (8-26) Creatinine 1.8mg/dL (0.7-1.3) Estimated GFR (Cockcroft-Gault) 39.1 Glucose Level 136mg/dL (70-99) Calcium Level 8.3mg/dL (8.5-10.1) Phosphorus Level 3.0mg/dL (2.6-4.7) Magnesium Level 2.0mg/dL (1.8-2.4) Albumin 2.4g/dL (3.4-5.0) Test 06/10/16 07:27 06/10/16 11:49 06/10/16 16:38 06/10/16 20:32 Glucose (Fingerstick) 148mg/dL (70-99) 137mg/dL (70-99) 113mg/dL (70-99) 234mg/dL (70-99) Test 06/11/16 04:00 06/11/16 08:14 White Blood Count 7.6x10^3/uL (4.0-11.0) Red Blood Count 3.57x10^6/uL (4.30-5.70) Hemoglobin 10.9g/dL (13.0-17.5) Hematocrit 32.2% (39.0-53.0) Mean Corpuscular Volume 90fL (79-100) Mean Corpuscular Hemoglobin 30pg (25-35) Mean Corpuscular Hemoglobin Concent 34g/dL (31-37) Red Cell Distribution Width 12.7% (11.5-14.5) Platelet Count 227x10^3/uL (140-400) Neutrophils (%) (Auto) 55% (31-73) Lymphocytes (%) (Auto) 27% (24-48) Monocytes (%) (Auto) 10% (0-9) Eosinophils (%) (Auto) 8% (0-3) Basophils (%) (Auto) 0% (0-3) Neutrophils # (Auto) 4.2x10^3uL (1.8-7.7) Lymphocytes # (Auto) 2.0x10^3/uL (1.0-4.8) Monocytes # (Auto) 0.8x10^3/uL (0.0-1.1) Eosinophils # (Auto) 0.6x10^3/uL (0.0-0.7) Basophils # (Auto) 0.0x10^3/uL (0.0-0.2) Prothrombin Time 20.3SEC (11.7-14.0) Prothromb Time International Ratio 1.9 (0.8-1.1) Sodium Level 138mmol/L (136-145) Potassium Level 4.2mmol/L (3.5-5.1) Chloride Level 106mmol/L (98-107) Carbon Dioxide Level 25mmol/L (21-32) Anion Gap 7 (6-14) Blood Urea Nitrogen 18mg/dL (8-26) Creatinine 1.5mg/dL (0.7-1.3) Estimated GFR (Cockcroft-Gault) 48.2 Glucose Level 148mg/dL (70-99) Calcium Level 9.0mg/dL (8.5-10.1) Phosphorus Level 2.8mg/dL (2.6-4.7) Magnesium Level 1.9mg/dL (1.8-2.4) Albumin 2.4g/dL (3.4-5.0) Glucose (Fingerstick) 155mg/dL (70-99) Laboratory Tests Test 06/10/16 11:49 06/10/16 16:38 06/10/16 20:32 06/11/16 04:00 Glucose (Fingerstick) 137mg/dL (70-99) 113mg/dL (70-99) 234mg/dL (70-99) White Blood Count 7.6x10^3/uL (4.0-11.0) Red Blood Count 3.57x10^6/uL (4.30-5.70) Hemoglobin 10.9g/dL (13.0-17.5) Hematocrit 32.2% (39.0-53.0) Mean Corpuscular Volume 90fL (79-100) Mean Corpuscular Hemoglobin 30pg (25-35) Mean Corpuscular Hemoglobin Concent 34g/dL (31-37) Red Cell Distribution Width 12.7% (11.5-14.5) Platelet Count 227x10^3/uL (140-400) Neutrophils (%) (Auto) 55% (31-73) Lymphocytes (%) (Auto) 27% (24-48) Monocytes (%) (Auto) 10% (0-9) Eosinophils (%) (Auto) 8% (0-3) Basophils (%) (Auto) 0% (0-3) Neutrophils # (Auto) 4.2x10^3uL (1.8-7.7) Lymphocytes # (Auto) 2.0x10^3/uL (1.0-4.8) Monocytes # (Auto) 0.8x10^3/uL (0.0-1.1) Eosinophils # (Auto) 0.6x10^3/uL (0.0-0.7) Basophils # (Auto) 0.0x10^3/uL (0.0-0.2) Prothrombin Time 20.3SEC (11.7-14.0) Prothromb Time International Ratio 1.9 (0.8-1.1) Sodium Level 138mmol/L (136-145) Potassium Level 4.2mmol/L (3.5-5.1) Chloride Level 106mmol/L (98-107) Carbon Dioxide Level 25mmol/L (21-32) Anion Gap 7 (6-14) Blood Urea Nitrogen 18mg/dL (8-26) Creatinine 1.5mg/dL (0.7-1.3) Estimated GFR (Cockcroft-Gault) 48.2 Glucose Level 148mg/dL (70-99) Calcium Level 9.0mg/dL (8.5-10.1) Phosphorus Level 2.8mg/dL (2.6-4.7) Magnesium Level 1.9mg/dL (1.8-2.4) Albumin 2.4g/dL (3.4-5.0) Test 06/11/16 08:14 Glucose (Fingerstick) 155mg/dL (70-99) Microbiology 06/09/16 Blood Culture - Preliminary, Resulted NO GROWTH AFTER 2 DAYS Medications Current Medications Sodium Chloride (Iv Sodium Chloride 0.9% 1000ml Bag) 1,000 ml @ 3,510 mls/hr Q18M IV Last administered on 06/04/16 03:55; Start 06/04/16 at 21:38; Stop at 22:38; Status DC Morphine Sulfate 4 mg PRN Q15MIN PRN IV/SQ PAIN GREATER THAN 3/10 Last administered on 06/04/16 22:07; Start 06/04/16 at 21:45; Stop 06/05/16 at 21:44 ; Status DC Ondansetron HCl (Zofran) 4 mg 1X ONCE IV Last administered on 06/04/16 22:07 ; Start 06/04/16 at 21:45; Stop 06/04/16 at 21:46; Status DC Acetaminophen (Tylenol) 650 mg 1X ONCE PO Last administered on 06/04/16 22:07 ; Start 06/04/16 at 21:45; Stop 06/04/16 at 21:46; Status DC Ondansetron HCl (Zofran) 4 mg PRN Q8HRS PRN IV NAUSEA/VOMITING; Start 06/04/16 at 23:45; Stop 06/05/16 at 23:44; Status DC Morphine Sulfate 4 mg 4 mg PRN Q2HR PRN IV PAIN Last administered on 06/05/16 05:35; Start 06/04/16 at 23:45; Stop 06/05/16 at 23:44; Status DC Sodium Chloride (Iv Sodium Chloride 0.9% 1000ml Bag) 1,000 ml @ 125 mls/hr Q8H IV Last administered on 06/04/16 01:30; Start 06/04/16 at 23:45; Stop at 11:18; Status DC Acetaminophen 650 mg 650 mg PRN Q4HRS PRN PO FEVER Last administered on 02:24; Start 06/04/16 at 23:45; Stop 06/05/16 at 23:44; Status DC Insulin Human Regular 150 ml @ 0 mls/hr 1X ONCE IV Last administered on 02:46; Start 06/05/16 at 00:00; Stop 06/05/16 at 08:26; Status DC Ceftriaxone Sodium/Sodium Chloride (Rocephin/Iv Sodium Chloride 0.9% 50ml) 50 ml @ 100 mls/hr Q24H IV Last administered on 06/05/16 00:00; Start 06/05/16 at 00:00; Stop 06/05/16 at 09:43; Status DC Levothyroxine Sodium (Synthroid) 100 mcg DAILY07 PO Last administered on 08:54; Start 06/05/16 at 08:15; Stop 06/05/16 at 20:29; Status DC Warfarin Sodium (Coumadin Per Pharmacy) 1 each PRN DAILY PRN MC SEE COMMENTS Last administered on 06/10/16 13:08; Start 06/05/16 at 08:15 Insulin Detemir (Levemir) 25 units QHS SQ ; Start 06/05/16 at 21:00; Stop at 11:27; Status DC Insulin Detemir (Levemir) 40 units DAILY08 SQ Last administered on 06/06/16 08 :14; Start 06/05/16 at 08:15; Stop 06/06/16 at 11:27; Status DC Insulin Aspart (Novolog) 30 units TIDAC SQ Last administered on 06/06/16 17:48 ; Start 06/05/16 at 08:30; Stop 06/07/16 at 11:23; Status DC Insulin Aspart (Novolog) 0-9 UNITS TIDWMEALS SQ Last administered on 06/09/16 17:52; Start 06/05/16 at 12:00 Dextrose (Dextrose 50%-Water Syringe) 12.5 gm PRN Q15MIN PRN IV SEE COMMENTS; Start 06/05/16 at 08:15 Heparin Sodium (Porcine) 5000 unit 5,000 unit Q12HR SQ Last administered on 08:13; Start 06/05/16 at 09:00; Stop 06/06/16 at 13:45; Status DC Piperacillin Sod/ Tazobactam Sod 2.25 gm/Sodium Chloride 50 ml @ 100 mls/hr Q6HRS IV Last administered on 06/08/16 05:55; Start 06/05/16 at 12:00; Stop at 11:29; Status DC Daptomycin/Sodium Chloride (Cubicin/Iv Sodium Chloride 0.9% 50ml) 50 ml @ 100 mls/hr ONCE ONCE IV Last administered on 06/05/16 10:34; Start 06/05/16 at 10 :30; Stop 06/05/16 at 10:59; Status DC Fluconazole 100 mg 100 mg DAILY PO Last administered on 06/10/16 08:08; Start 06/05/16 at 10:00 Sodium Chloride 1,000 ml @ 125 mls/hr Q8H IV ; Start 06/05/16 at 11:30; Status UNV Sodium Chloride (Iv Sodium Chloride 0.45%) 1,000 ml @ 125 mls/hr Q8H IV Last administered on 06/08/16 03:30; Start 06/05/16 at 11:30; Stop 06/08/16 at 19:27 ; Status DC Warfarin Sodium (Coumadin) 5 mg QMWF PO Last administered on 06/08/16 16:48; Start 06/05/16 at 17:00; Stop 06/09/16 at 11:49; Status DC Warfarin Sodium (Coumadin) 7.5 mg QTUTHSASU PO Last administered on 06/07/16 15:34; Start 06/06/16 at 16:00; Stop 06/09/16 at 11:49; Status DC Levothyroxine Sodium (Synthroid) 125 mcg DAILY07 PO Last administered on 05:41; Start 06/06/16 at 07:00 Prednisone (Prednisone) 5 mg DAILY PO Last administered on 06/10/16 08:07; Start 06/06/16 at 09:00 Tramadol HCl (Ultram) 50 mg PRN Q6HRS PRN PO pain; Start 06/05/16 at 19:00; Stop 06/06/16 at 13:55; Status DC Gabapentin (Neurontin) 600 mg BID94 PO Last administered on 06/10/16 16:59; Start 06/05/16 at 21:00 Losartan Potassium (Cozaar) 100 mg DAILY PO Last administered on 06/06/16 08: 06; Start 06/06/16 at 09:00; Stop 06/06/16 at 13:45; Status DC Calcium Carbonate/ Glycine (Tums) 500 mg PRN AFTMEALHC PRN PO INDIGESTION; Start 06/05/16 at 19:00 Acetaminophen (Tylenol) 650 mg PRN Q6HRS PRN PO MILD PAIN Last administered on 06/06/16 06:36; Start 06/06/16 at 04:30 Diphenhydramine HCl (Benadryl) 25 mg PRN Q6HRS PRN PO ITCHING Last administered on 06/07/16 06:17; Start 06/06/16 at 10:45 Insulin Detemir (Levemir) 30 units DAILY08 SQ Last administered on 06/10/16 08 :11; Start 06/07/16 at 08:00 Insulin Detemir 20 units 20 units QHS SQ Last administered on 06/10/16 20:39; Start 06/06/16 at 21:00 Magnesium Sulfate/ Dextrose 100 ml @ 25 mls/hr 1X ONCE IV Last administered on 06/06/16 12:19; Start 06/06/16 at 11:45; Stop 06/06/16 at 15:44; Status DC Magnesium Sulfate/ Dextrose (Magnesium Sulfate PREMIX 2GM) 50 ml @ 25 mls/hr 1X ONCE IV ; Start 06/06/16 at 12:30; Stop 06/06/16 at 14:29; Status Cancel Hydralazine HCl (Apresoline) 10 mg PRN Q4HRS PRN IVP ELEVATED BP, SEE COMMENTS ; Start 06/06/16 at 14:00 Ondansetron HCl (Zofran) 4 mg PRN Q6HRS PRN IV NAUSEA/VOMITING; Start 06/06/16 at 14:00 Tramadol HCl (Ultram) 50 mg PRN Q6HRS PRN PO MOSERATE - SEVERE PAIN; Start at 14:00 Insulin Aspart (Novolog) 20 units TIDAC SQ Last administered on 06/10/16 12:12 ; Start 06/07/16 at 11:30 Tamsulosin HCl (Flomax) 0.4 mg QHS PO Last administered on 06/09/16 20:25; Start 06/07/16 at 21:00; Stop 06/10/16 at 12:50; Status DC Diphenhydramine HCl 50 mg 50 mg PRN Q6HRS PRN PO ITCHING Last administered on 17:06; Start 06/07/16 at 15:45 Ceftriaxone Sodium 2 gm/ Sodium Chloride 100 ml @ 200 mls/hr Q24H IV Last administered on 06/10/16 12:05; Start 06/08/16 at 12:00 Magnesium Sulfate/ Dextrose (Magnesium Sulfate PREMIX 2GM) 50 ml @ 25 mls/hr PRN DAILY PRN IV for Mag < 1.7 on am labs; Start 06/09/16 at 09:45 Warfarin Sodium (Coumadin - No Dose Today) 1 each 1X WARF ONCE MC ; Start 06/09 at 16:00; Stop 06/09/16 at 16:01; Status DC Acetylcysteine (Mucomyst 20% Oral Solution) 600 mg BID PO Last administered on 06/10/16 20:33; Start 06/09/16 at 21:00; Stop 06/11/16 at 09:40; Status DC Lactobacillus Acidophilus (Bacid, Rabia-Bid) 1 tab TIDWMEALS PO Last administered on 06/10/16 16:58; Start 06/10/16 at 12:00 Ascorbic Acid (Vitamin C) 500 mg BID PO Last administered on 06/10/16 20:33; Start 06/10/16 at 11:00 Multivitamins (Thera M Plus) 1 tab DAILY PO Last administered on 06/10/16 12: 04; Start 4/26/17 at 10:30 Tamsulosin HCl (Flomax) 0.4 mg BID PO Last administered on 06/10/16 20:33; Start 06/10/16 at 21:00 Warfarin Sodium (Coumadin - No Dose Today) 1 each 1X WARF ONCE MC Last administered on 06/10/16 16:00; Start 06/10/16 at 16:00; Stop 06/10/16 at 16:01 ; Status DC Nystatin 1 miles 1 miles BID TP ; Start 06/11/16 at 10:30 Sodium Chloride (Iv Sodium Chloride 0.9% 1000ml Bag) 1,000 ml @ 75 mls/hr [id number] IV Last administered on 06/11/16 10:05; Start 06/11/16 at 09:45 Acetylcysteine (Mucomyst 20% Oral Solution) 1,200 mg BID PO ; Start 06/11/16 at 21:00; Stop 06/13/16 at 20:59 Active Scripts Active Reported Novolin N (Nph, Human Insulin Isophane) 100 Unit/1 Ml Vial 20-25 Unit SQ QHS Novolog (Insulin Aspart) 100 Unit/1 Ml Cartridge 30 Unit SQ TIDWMEALS Triamcinolone Acetonide 0.1% Cream (Triamcinolone Acetonide) 15 Gm Cream..g. 1 Miles TP Tramadol Hcl 50 Mg Tablet 1 Tab PO PRN Q6HRS Calcium (Calcium Carbonate) 600 Mg Tablet 1,200 Mg PO Warfarin Sodium 7.5 Mg Tablet 7.5 Mg PO QTUTHSASU Warfarin Sodium 5 Mg Tablet 1 Tab PO QMWF Daily Multiple Vitamin (Multivitamin) 1 Each Tablet 1 Each PO Gabapentin 600 Mg Tablet 1,200 Mg PO HS Gabapentin 600 Mg Tablet 600 Mg PO [id number] Losartan Potassium 100 Mg Tablet 100 Mg PO DAILY Prednisone 1 Mg Tablet 4 Tab PO DAILY Levothyroxine Sodium 125 Mcg Tablet 1 Tab PO DAILY Vitals/I & O Vital Sign - Last 24 Hours 06/10/16 06/10/16 06/10/16 06/10/16 15:00 19:00 19:37 23:00 Temp 98.2 98.1 98.2 98.2 98.1 98.2 Pulse 91 91 80 Resp 18 20 20 B/P 166/80 164/85 162/87 Pulse Ox 95 97 98 O2 Delivery Room Air Room Air Room Air Room Air 06/11/16 06/11/16 06/11/16 03:00 07:00 07:55 Temp 98.2 97.9 98.2 97.9 Pulse 99 93 Resp 20 18 B/P 156/92 152/77 Pulse Ox 93 96 O2 Delivery Room Air Room Air Room Air Intake and Output 06/10/16 06/10/16 06/11/16 15:00 23:00 07:00 Intake Total 270 ml 180 ml 100 ml Output Total 1525 ml 3300 ml Balance -1255 ml 180 ml -3200 ml SHEREEN KAY MD Jun 11, 2016 11:00
[2016-06-11] MEDS ORDERED: IODIXANOL 320 MG/ML 100 ML VIAL. ONE (12:43)
[2016-06-11] MEDS ORDERED: HEPARIN for ARTERIAL LINE 2,000 ML ONE (12:43)
[2016-06-11] MEDS ORDERED: LIDOCAINE 1% / SOD BICARB 8.4% 20 ML VIAL. IJ ONE ×2 (12:43→13:15)
[2016-06-11] MEDS ORDERED: IODIXANOL 320 MG/ML 100 ML VIAL. IART ONE (13:15)
[2016-06-11] MEDS ORDERED: fentaNYL PF VIAL 250 MCG/5 ML VIAL IV ONE (13:15)
[2016-06-11] MEDS ORDERED: CONTRAST GIVEN MC PRN (13:15)
[2016-06-11] MEDS ORDERED: MIDAZOLAM HCL/PF 5 MG/5 ML VIAL. IV ONE (13:15)
[2016-06-11] MEDS ORDERED: HEPARIN for IV BOLUS 10,000 UNIT/10 ML VIAL. ONE (13:16)
[2016-06-11] MEDS ORDERED: FLUMAZENIL 0.5 MG/5 ML VIAL. IV ONE (13:25)
[2016-06-11] MEDS ORDERED: NALOXONE 0.4 MG/ML VIAL. ONE (13:25)
[2016-06-11] MEDS ORDERED: IOHEXOL 300 MG/ML 100ML VIAL. ONE (13:55)
--- NOTE | 2016-06-11 14:56 | PDOC ---
MODERATE SEDATION ASSESSMENT RISKS/ALTERNATIVES Risks/Alternatives Risks and alternatives of this type of sedation and procedure discussed with: RISK/ALTERNATIVES: Patient H & P ON CHART H & P H & P on chart and reviewed for co-morbid conditions and appropriate labs. H&P ON CHART: Yes STATUS PREG STATUS ASSESSED: N/A MEDS/ALLERGIES REVIEWED Meds/Allergies Reviewed Medications and Allergies including time and route of recently administered narcotics and sedatives. MEDS/ALLERGIES REVIEWED: Yes ASA RATING ASA RATING: II AIRWAY ASSESSMENT Airway Assessment Airway patency, oral function limitations, presence of caps, crowns, dentures, partials, and ability to extend neck assessed. AIRWAY ASSESSMENT: Yes MALLAMPATI SCORE MALLAMPATI SCORE: III PRE-SEDATION ASSESSMENT PRE-SEDATION ASSESSMENT: Yes IVON JAIMES MD Jun 11, 2016 14:56
[2016-06-11] MEDS ORDERED: IOHEXOL 300 MG/ML 100ML VIAL. IART ONE (15:15)
--- NOTE | 2016-06-11 15:32 | PDOC ---
Exam Job Counselor Job Counselor [address] Deputy Clerk [address] Deputy Clerk Joann Horvath Pre-Procedure Diagnosis Pre-Procedure Diagnosis 55 YO diabetic male with rt toe and left ankle ulcerations, abnormal ABIs c/w PAD, and solitary left kidney with mild renal insufficiency. Post-Procedure Diagnosis Post-Procedure Diagnosis No AAA. No significant iliac, SFA, of popliteal stenosis, bilaterally. Tibial disease much greater right than left---see radiology report. Diabetic small vessel disease at feet, bilaterally. Procedure Performed Procedure Performed Abdominal aortogram with bilateral lower extremity angio with CO2 and limited iodinated contrast material. Type of Anesthesia Type of Anesthesia Local + Mod sedation. Estimated Blood Loss EBL: 50 cc Condition of Patient Condition of Patient Stable. No apparent complication. Disposition Disposition From IR return to [facility]. F/u with HIMS, ID, Renal and vascular surgery. Full report to follow. IVON JAIMES MD Jun 11, 2016 15:32
--- NOTE | 2016-06-11 16:12 | RAD ---
Abdominal aortogram with bilateral lower extremity arteriogram Indication: 55-year-old diabetic male with right toe ulcerations, left ankle wound, abnormal ankle indices suggesting PAD. He has a solitary kidney, with mild chronic renal insufficiency, with creatinine now near baseline. Abdominal aortogram with bilateral lower extremity arteriogram, utilizing CO2 and limited iodinated contrast material, has been requested by vascular surgery. Fluoroscopy time: 15.0 minutes Kerma-area Product: 314 Gycm2 Contrast material: CO2. 30 cc Omnipaque 300. 23 cc Visipaque 320. Anesthesia: 74 minutes moderate sedation was provided utilizing a total of 1 mg Versed and 200 mcg fentanyl, IV. The patient was appropriately monitored by a qualified independent observer throughout the time of moderate sedation. Consent: The procedure was explained in its entirety to the patient and/or the patient's designated applications sales representative by a member of the treatment team. This included a discussion of risks and benefits and commonly accepted alternatives to the procedure, as well as expected consequences of no treatment at all. Discussion of risks included, but was not limited to, those that are most frequent and those that are rare, but possibly severe or life-threatening, as well as the possibility of unforeseen complications. Sterility: All elements of maximal sterile barrier technique were utilized, including cap, mask, sterile gown, sterile gloves, large sterile sheet, appropriate hand hygiene, and 2% chlorhexidine for cutaneous antisepsis. Procedure: Informed consent was obtained from the patient. He was placed supine on the angiography table. Preliminary ultrasound examination of left groin revealed wide patency of left common femoral artery, which was documented with a single hard copy ultrasound image. Left groin was then prepped and draped in the usual sterile fashion, utilizing all elements of maximal sterile barrier technique, as described above. Moderate sedation was provided with IV Versed and fentanyl. Using aseptic technique, local anesthesia, direct ultrasound guidance, and the micropuncture system, a 5 [place] left common femoral artery sheath was successfully introduced. Abdominal aortogram: Using aseptic technique, a 5 [place] Omni Flush catheter was advanced through the left groin sheath and was positioned within juxta renal abdominal aorta. CO2 abdominal aortogram was attempted, however, CO2 stacking technique could not be successfully utilized due to this patient's body habitus. Therefore, a small volume of 10 cc of Omnipaque 300 was injected, and abdominal aortogram DSA images were obtained. Findings: Infrarenal abdominal aorta is smooth in contour normally caliber. There is no evidence of aortic stricture or aneurysm. Single left main renal artery is widely patent. Right kidney is, by patient history, congenitally absent. LOLY is patent. AP pelvis injection: The Omni Flush catheter was withdrawn into terminal abdominal aorta, just above bifurcation. CO2 pelvis arteriogram was attempted, however, CO2 stacking technique could not be successfully utilized due to this patient's body habitus. Therefore, 20 cc of Omnipaque 300 was injected and DSA images were obtained over pelvis. Findings: Aortic bifurcation is widely patent. There is no significant common iliac or external iliac artery stenosis, bilaterally. Both hypogastric arteries are patent. Selective right lower extremity arteriogram: The Omni Flush catheter was exchanged for a 0.035 inch quick cross catheter, which was advanced across aortic bifurcation over a Glidewire, and was initially positioned within contralateral right common femoral artery. CO2 was injected and DSA images were obtained over groin and proximal thigh utilizing CO2 stacking technique. The quick cross catheter was then further advanced into proximal right SFA. CO2 was again injected and DSA images were obtained over mid and distal thigh utilizing CO2 stacking technique. The quick cross catheter was then further advanced into proximal right popliteal artery. Dilute Visipaque was injected and DSA images were obtained from knee through foot. Findings: Right femoral, popliteal, and tibial trifurcation vessels all show diffuse atherosclerotic calcification. Right common femoral artery, bifurcation, and deep femoral artery are widely patent. Right SFA-popliteal arterial segment is also widely patent, without significant stenosis. Right posterior tibial artery arises high from popliteal artery at the level of knee joint, and shows focal severe stenosis just distal to its origin, followed by localized moderate and mild stenoses at the level of mid calf, followed by abrupt complete occlusion at ankle. Right anterior tibial artery shows moderate stenosis just distal to its origin, followed by focal critical stenosis at mid calf. Diffusely diseased, small caliber peroneal artery is occluded at mid calf. Delayed images over right foot revealed occlusion of dorsalis pedis artery at mid foot as well as short segment occlusion of medial and lateral plantar arteries at their respective origins. Small vessels of right foot are poorly visualized, consistent with diabetic small vessel disease. Left lower extremity runoff: The quick cross catheter, utilized for the selective right lower extremity arteriogram, was removed through the left groin 5 [place] sheath. The 5 [place] Omni Flush catheter was reintroduced through the left groin sheath and was positioned within distal left external iliac artery. CO2 was injected and DSA images were obtained from left groin through distal calf utilizing CO2 stacking technique. Dilute Visipaque was then injected and delayed DSA images were obtained over left foot/ankle. Findings: Left femoral, popliteal, and tibial trifurcation vessels all show diffuse atherosclerotic calcification. However, left common femoral artery, bifurcation, deep femoral artery, and SFA-popliteal arterial segments are all widely patent, without significant stenosis. Left tibial trifurcation is also widely patent. Left anterior tibial artery is patent from origin through dorsalis pedis artery, which appears occluded proximally. Small caliber left peroneal artery is patent from origin through distal calf/ankle. Left posterior tibial artery is patent from origin through medial and lateral plantar vessels at hindfoot-midfoot. There is poor visualization of small vessels of left foot, consistent with diabetic small vessel disease. Patient tolerated the procedure well without apparent complication. Hemostasis was achieved at the left groin puncture site utilizing the Mynx closure system. Impression: 1. No abdominal aortic aneurysm. Solitary left kidney, with widely patent left renal artery. 2. No significant iliac inflow stenosis, bilaterally. 3. Common femoral, profunda, and SFA-popliteal segments are diffusely calcific, bilaterally, without hemodynamically significant stenosis. 4. Focal significant stenoses within right anterior tibial and posterior tibial arteries, as described. Additionally, right posterior tibial artery is occluded ankle, dorsalis pedis artery appears occluded at mid foot, and right medial and lateral plantar arteries show short segment origin occlusions. There is generally poor visualization of small vessels of right foot, consistent with diabetic small vessel disease. 5. Left tibial trifurcation is widely patent, with three-vessel runoff to ankle/foot. However, dorsalis pedis artery appears occluded proximally, and there is poor visualization of small vessels of left foot, suggesting diabetic small vessel disease.
[2016-06-11] MEDS: predniSONE 5 MG TABLET PO SCH (17:12)
[2016-06-11] MEDS: FLUCONAZOLE 100 MG TABLET. PO SCH (17:12)
[2016-06-11] MEDS: MULTIVITAMIN with MINERAL TABLET. PO SCH (17:12)
[2016-06-12 03:00] VITALS: BP 155/83
[2016-06-12] MEDS: LEVOTHYROXINE 125 MCG TABLET PO SCH (05:17)
[2016-06-12 06:31] LABS: INR 1.5 (0.8-1.1); PROTHROMBIN TIME PATIENT 16.8 SEC (11.7-14.0)
[2016-06-12 06:33] LABS: ALBUMIN 2.6 g/dL (3.4-5.0); CALCIUM 8.9 mg/dL (8.5-10.1); CREATININE 1.6 mg/dL (0.7-1.3); GFR 44.8; PHOSPHORUS 3.8 mg/dL (2.6-4.7); POTASSIUM 5.1 mmol/L (3.5-5.1)
[2016-06-12 07:15] VITALS: BP 134/85
[2016-06-12] MEDS: LACTOBACILLUS ACIDOPH & BULGAR 1 TABLET. PO SCH ×3 (09:07→17:19)
[2016-06-12] MEDS: TAMSULOSIN 0.4 MG CAP.ER.24H. PO SCH (09:07)
[2016-06-12] MEDS: FLUCONAZOLE 100 MG TABLET. PO SCH (09:07)
[2016-06-12] MEDS: predniSONE 5 MG TABLET PO SCH (09:08)
[2016-06-12] MEDS: MULTIVITAMIN with MINERAL TABLET. PO SCH (09:08)
[2016-06-12] MEDS: GABAPENTIN 300 MG CAPSULE. PO SCH ×2 (09:08→17:18)
[2016-06-12] MEDS: NYSTATIN TOPICAL POWDER 15GM BOTTLE. TP SCH (09:09)
[2016-06-12] MEDS: ASCORBIC ACID 500 MG TABLET PO SCH (09:09)
[2016-06-12] MEDS: INSULIN DETEMIR 300 UNITS/3 ML INSULN.PEN. SQ SCH (09:16)
[2016-06-12] MEDS: INSULIN ASPART 300 UNITS/3 ML INSULN.PEN SQ SCH ×6 (09:16→17:00)
[2016-06-12] MEDS: ACETYLCYSTEINE 20% ORAL SOLN 600 MG/3 ML SYRINGE. PO SCH (09:19)
--- NOTE | 2016-06-12 10:14 | PDOC ---
SUBJECTIVE ROS CKD III - single kidney doing well overall OBJECTIVE Vital Signs Vital Signs Date Time Temp Pulse Resp B/P Pulse Ox O2 Delivery O2 Flow Rate FiO2 06/12/16 07:15 97.9 103 18 134/85 98 Room Air 97.9 06/11/16 17:19 3.0 I & 0 Intake and Output 06/12/16 07:00 Intake Total 2415 ml Output Total 1750 ml Balance 665 ml Intake Oral 440 ml IV Total 975 ml Other 1000 ml Output Urine Total 1750 ml # Bowel Movements 5 PHYSICAL EXAM Physical Exam General Appearance: Awake: Alert Oriented x 3 Neck: No JVD or JVP Chest: CTA Bruno Heart: S1 S2 Abdomen - Soft NTND Extremities - No Edema DIAGNOSIS/ASSESSMENT Assessment & Plan CKD III (single kdidney with presumed small vs dz) - creat back to baseline Problems: COMMENT/RELEVANT DATA Meds Current Medications Medications (Trade) Dose Ordered Sig/Bereket Start Time Stop Time Status Last Admin Dose Admin Acetaminophen (Tylenol) 650 mg PRN Q6HRS PRN 06/06/16 04:30 06/06/16 06:36 650 MG Acetaminophen 650 mg 650 mg PRN Q4HRS PRN 06/04/16 23:45 06/05/16 23:44 DC 06/05/16 02:24 650 MG Acetylcysteine (Mucomyst 20% Oral Solution) 1,200 mg BID 06/11/16 21:00 06/13/16 20:59 Ascorbic Acid (Vitamin C) 500 mg BID 06/10/16 11:00 06/12/16 09:09 500 MG Calcium Carbonate/ Glycine (Tums) 500 mg PRN AFTMEALHC PRN 06/05/16 19:00 Ceftriaxone Sodium 2 gm/ Sodium Chloride 100 ml @ 200 mls/hr Q24H 06/08/16 12:00 06/11/16 12:25 200 MLS/HR Ceftriaxone Sodium/Sodium Chloride (Rocephin/Iv Sodium Chloride 0.9% 50ml) 50 ml @ 100 mls/hr Q24H 06/05/16 00:00 06/05/16 09:43 DC 06/05/16 00:00 100 MLS/HR Daptomycin/Sodium Chloride (Cubicin/Iv Sodium Chloride 0.9% 50ml) 50 ml @ 100 mls/hr ONCE ONCE 06/05/16 10:30 06/05/16 10:59 DC 06/05/16 10:34 100 MLS/HR Dextrose (Dextrose 50%-Water Syringe) 12.5 gm PRN Q15MIN PRN 06/05/16 08:15 Diphenhydramine HCl (Benadryl) 25 mg PRN Q6HRS PRN 06/06/16 10:45 06/07/16 06:17 25 MG Diphenhydramine HCl 50 mg 50 mg PRN Q6HRS PRN 06/07/16 15:45 06/08/16 17:06 50 MG Fentanyl Citrate (Fentanyl 5ml Vial) 250 mcg 1X ONCE 06/11/16 13:15 06/11/16 13:16 DC 06/11/16 14:51 100 MCG Fluconazole 100 mg 100 mg DAILY 06/05/16 10:00 06/12/16 09:07 100 MG Flumazenil (Romazicon) 0.5 mg STK-MED ONCE 06/11/16 13:25 06/11/16 13:26 DC Gabapentin (Neurontin) 600 mg BID94 06/05/16 21:00 06/12/16 09:08 600 MG Heparin Sodium (Porcine) (Heparin Sodium) 10,000 unit STK-MED ONCE 06/11/16 13:16 06/11/16 13:17 DC Heparin Sodium (Porcine) 5000 unit 5,000 unit Q12HR 06/05/16 09:00 06/06/16 13:45 DC 06/06/16 08:13 5,000 UNIT Heparin Sodium/ Sodium Chloride 1,000 unit 1X ONCE 06/11/16 13:15 06/11/16 13:16 DC 06/11/16 14:52 1,000 UNIT Hydralazine HCl (Apresoline) 10 mg PRN Q4HRS PRN 06/06/16 14:00 Info (Do NOT chart on this entry -- for MONITORING) 1 each PRN DAILY PRN 06/11/16 13:15 06/13/16 13:14 Insulin Aspart (Novolog) 20 units TIDAC 06/07/16 11:30 06/12/16 09:16 20 UNITS Insulin Detemir (Levemir) 30 units DAILY08 06/07/16 08:00 06/12/16 09:16 30 UNITS Insulin Detemir 20 units 20 units QHS 06/06/16 21:00 06/11/16 21:41 20 UNITS Insulin Human Regular 150 ml @ 0 mls/hr 1X ONCE 06/05/16 00:00 06/05/16 08:26 DC 06/05/16 02:46 8 MLS/HR Iodixanol (Visipaque 320) 100 ml 1X ONCE 06/11/16 13:15 06/11/16 13:16 DC 06/11/16 14:50 23 ML Iohexol (Omnipaque 300 Mg/ml) 30 ml 1X ONCE 06/11/16 15:15 06/11/16 15:16 DC 06/11/16 14:56 30 ML Lactobacillus Acidophilus (Bacid, Rabia-Bid) 1 tab TIDWMEALS 06/10/16 12:00 06/12/16 09:07 1 TAB Levothyroxine Sodium (Synthroid) 125 mcg DAILY07 06/06/16 07:00 06/12/16 05:17 125 MCG Lidocaine/Sodium Bicarbonate (Buffered Lidocaine 1%) 20 ml 1X ONCE 06/11/16 13:15 06/11/16 13:16 DC 06/11/16 14:50 6 ML Losartan Potassium (Cozaar) 100 mg DAILY 06/06/16 09:00 06/06/16 13:45 DC 06/06/16 08:06 100 MG Magnesium Sulfate/ Dextrose (Magnesium Sulfate PREMIX 2GM) 50 ml @ 25 mls/hr PRN DAILY PRN 06/09/16 09:45 Magnesium Sulfate/ Dextrose (Magnesium Sulfate PREMIX 4GM) 100 ml @ 25 mls/hr 1X ONCE 06/06/16 11:45 06/06/16 15:44 DC 06/06/16 12:19 25 MLS/HR Midazolam HCl (Versed) 5 mg 1X ONCE 06/11/16 13:15 06/11/16 13:16 DC 06/11/16 14:52 1 MG Morphine Sulfate 4 mg PRN Q2HR PRN 06/04/16 23:45 06/05/16 23:44 DC 06/05/16 05:35 4 MG Multivitamins (Thera M Plus) 1 tab DAILY 06/10/16 10:30 06/12/16 09:08 1 TAB Naloxone HCl (Narcan) 0.4 mg STK-MED ONCE 06/11/16 13:25 06/11/16 13:26 DC Nystatin 1 lucy 1 lucy BID 06/11/16 10:30 06/12/16 09:09 1 LUCY Ondansetron HCl (Zofran) 4 mg PRN Q6HRS PRN 06/06/16 14:00 Piperacillin Sod/ Tazobactam Sod 2.25 gm/Sodium Chloride 50 ml @ 100 mls/hr Q6HRS 06/05/16 12:00 06/08/16 11:29 DC 06/08/16 05:55 100 MLS/HR Prednisone (Prednisone) 5 mg DAILY 06/06/16 09:00 06/12/16 09:08 5 MG Sodium Chloride (Iv Sodium Chloride 0.45%) 1,000 ml @ 125 mls/hr Q8H 06/05/16 11:30 06/08/16 19:27 DC 06/08/16 03:30 125 MLS/HR Sodium Chloride (Iv Sodium Chloride 0.9% 1000ml Bag) 1,000 ml @ 75 mls/hr [id number] 06/11/16 09:45 06/11/16 17:13 75 MLS/HR Tamsulosin HCl (Flomax) 0.4 mg BID 06/10/16 21:00 06/12/16 09:07 0.4 MG Tramadol HCl (Ultram) 50 mg PRN Q6HRS PRN 06/06/16 14:00 Warfarin Sodium (Coumadin - No Dose Today) 1 each 1X WARF ONCE 06/11/16 16:00 06/11/16 16:01 DC 06/11/16 16:00 1 EACH Warfarin Sodium (Coumadin Per Pharmacy) 1 each PRN DAILY PRN 06/05/16 08:15 06/11/16 12:47 1 EACH Warfarin Sodium (Coumadin) 7.5 mg [id number] 06/06/16 16:00 06/09/16 11:49 DC 06/07/16 15:34 7.5 MG Lab Laboratory Tests Test 06/11/16 11:47 06/11/16 16:36 06/12/16 05:30 Glucose (Fingerstick) 199mg/dL (70-99) 178mg/dL (70-99) Prothrombin Time 16.8SEC (11.7-14.0) Prothromb Time International Ratio 1.5 (0.8-1.1) Sodium Level 136mmol/L (136-145) Potassium Level 5.1mmol/L (3.5-5.1) Chloride Level 105mmol/L (98-107) Carbon Dioxide Level 26mmol/L (21-32) Anion Gap 5 (6-14) Blood Urea Nitrogen 20mg/dL (8-26) Creatinine 1.6mg/dL (0.7-1.3) Estimated GFR (Cockcroft-Gault) 44.8 Glucose Level 197mg/dL (70-99) Calcium Level 8.9mg/dL (8.5-10.1) Phosphorus Level 3.8mg/dL (2.6-4.7) Magnesium Level 1.8mg/dL (1.8-2.4) Albumin 2.6g/dL (3.4-5.0) TAMMY WESTON MD Jun 12, 2016 10:14
[2016-06-12 10:30] VITALS: BP 133/93
[2016-06-12] MEDS: IV NORMAL SALINE 1000ML BAG 1,000 ML IV SCH (12:25)
--- NOTE | 2016-06-12 12:50 | PDOC ---
PROGRESS NOTES Chief Complaint Chief Complaint Toe cellulitis Sepsis ASSESSMENT AND PLAN: 1. Sepsis: Group B Strep isolated. 2. L toe/foot cellulitis abscess 5th toe, no osteo per MRI. on ceftriax and diflucan 3. R toe infect 4. Leukocytosis: reactive 2/2 infect. resolved 5. Rash: . Zosyn switched to ceftriax by Dr Lou. jaxsonadryl PRN 6. PAD: CO2 arteriogram done: bilat PAD, see report. awaiting further input from [facility] 7. EVON on CKD4: vasomotor etiology; suspect back to baseline creat. single kidney. followed by Dr. Masters 8. DM2: well controlled on current regimen 9. HTN: well controlled. cont current regimen 10. HLD: on statin 11. hx recurrent DVT: off coumadin X2 days, with INR now 1.5. cover with therapeutic lovenox 12. Dispo: home with Abx rx TBD by ID service History of Present Illness History of Present Illness thinks he has been cleared by all services to go home. still on IV Abx Vitals Vitals Vital Signs Date Time Temp Pulse Resp B/P Pulse Ox O2 Delivery O2 Flow Rate FiO2 06/12/16 10:30 97.5 107 18 133/93 99 Room Air 97.5 06/11/16 17:19 3.0 Physical Exam General: Alert, Oriented X3, Cooperative, mild distress Heart: Regular rate, Normal S1, Normal S2 Lungs: Clear Abdomen: Normal bowel sounds, Soft Extremities: No cyanosis, No edema Labs LABS Laboratory Tests Test 06/11/16 16:36 06/11/16 21:22 06/12/16 05:30 06/12/16 11:42 Glucose (Fingerstick) 178mg/dL (70-99) 142mg/dL (70-99) 142mg/dL (70-99) Prothrombin Time 16.8SEC (11.7-14.0) Prothromb Time International Ratio 1.5 (0.8-1.1) Sodium Level 136mmol/L (136-145) Potassium Level 5.1mmol/L (3.5-5.1) Chloride Level 105mmol/L (98-107) Carbon Dioxide Level 26mmol/L (21-32) Anion Gap 5 (6-14) Blood Urea Nitrogen 20mg/dL (8-26) Creatinine 1.6mg/dL (0.7-1.3) Estimated GFR (Cockcroft-Gault) 44.8 Glucose Level 197mg/dL (70-99) Calcium Level 8.9mg/dL (8.5-10.1) Phosphorus Level 3.8mg/dL (2.6-4.7) Magnesium Level 1.8mg/dL (1.8-2.4) Albumin 2.6g/dL (3.4-5.0) DEBORAH ORNELAS MD Jun 12, 2016 12:50
--- NOTE | 2016-06-12 12:58 | PDOC ---
Infectious Disease Note Subjective Subjective Feeling better Less itchy, attributes rash to laundry detergent +BM ROS ROS GEN: Denies fevers, chills, sweats HEENT: Denies sore throat CV: Denies chest pain RESP: Denies shortness of air, cough GI: Denies n/v/d Vital Sign Vital Signs Vital Signs Date Time Temp Pulse Resp B/P Pulse Ox O2 Delivery O2 Flow Rate FiO2 06/12/16 10:30 97.5 107 18 133/93 99 Room Air 97.5 06/11/16 17:19 3.0 Physical Exam PHYSICAL EXAM GENERAL: Alert, in chair HEENT: OC/OP clear NECK: Supple LUNGS: Clear, no wheezing, rhonchi or crackles HEART: S1S2, no gallop, no murmur ABD: Obese, BS present, soft, NT EXT: No cyanosis. No edema [employer]IST: Alert, 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, no focal neurologic deficit SKIN: Light erythematous rash of arms, abdomen & upper legs, dry, fading IV: ok Labs Lab Laboratory Tests Test 06/11/16 16:36 06/11/16 21:22 06/12/16 05:30 06/12/16 11:42 Glucose (Fingerstick) 178mg/dL (70-99) 142mg/dL (70-99) 142mg/dL (70-99) Prothrombin Time 16.8SEC (11.7-14.0) Prothromb Time International Ratio 1.5 (0.8-1.1) Sodium Level 136mmol/L (136-145) Potassium Level 5.1mmol/L (3.5-5.1) Chloride Level 105mmol/L (98-107) Carbon Dioxide Level 26mmol/L (21-32) Anion Gap 5 (6-14) Blood Urea Nitrogen 20mg/dL (8-26) Creatinine 1.6mg/dL (0.7-1.3) Estimated GFR (Cockcroft-Gault) 44.8 Glucose Level 197mg/dL (70-99) Calcium Level 8.9mg/dL (8.5-10.1) Phosphorus Level 3.8mg/dL (2.6-4.7) Magnesium Level 1.8mg/dL (1.8-2.4) Albumin 2.6g/dL (3.4-5.0) Micro BLOOD CULTURE Preliminary NO GROWTH AFTER 3 DAYS Objective Assessment Strep sepsis - POA 06/04 Fever. better LLE cellulitis Left 5th toe ? abscess and med ankle wound Right 2 and 3 toe infections PAD s/p abdominal aortogram with bilateral lower extremity angio, 06/11 EVON on CKD single kidney. followed by Dr. Masters Leukocytosis, improved Rash. Warfarin therapy Plan Plan of Care Rocephin and fluconazole Probiotics Nystatin powder monitor INR with fluconazole and Coumadin Dapto times one, 06/05 Attending Co-Sign The patient was seen and interviewed as well as examined at the bedside. The chart was reviewed. The case was discussed. Agree with the plan of care. ROVERTO RAMIREZ APRN Jun 12, 2016 12:58 SERGIO WESTON MD Jun 12, 2016 14:40
--- NOTE | 2016-06-12 13:25 | PDOC ---
Provider Note Provider Note Vascular F/U Angiogram reviewed, nothing to offer as far as a bypass , since no target vessel distal to pedal obstructive disease, explained to pt. Will have pt. F/U with KIRK Mcdonald MD Jun 12, 2016 13:25
[2016-06-12] MEDS ORDERED: FLUC100T4 PO (14:35)
[2016-06-12] MEDS ORDERED: TAMS0.4C97 PO (14:35)
[2016-06-12] MEDS ORDERED: ACID1TAB14 PO (14:35)
[2016-06-12] MEDS ORDERED: ASCO500T2 PO (14:35)
[2016-06-12 14:40] VITALS: BP 139/83
[2016-06-12] MEDS ORDERED: WARFARIN 5 MG TABLET. PO ONE (16:00)
[2016-06-12] MEDS ORDERED: CEPH-263 PO (16:02)
--- NOTE | 2016-06-12 21:51 | DS ---
DATE OF DISCHARGE: 06/12/2016 CHIEF COMPLAINT: Toe cellulitis, sepsis. HOSPITAL COURSE: The patient is a 55-year-old gentleman with diabetes as well as PAD, who presented with left toe and foot cellulitis and abscess of the fifth toe. In his bloodstream, group B strep was isolated. He was therefore treated with antibiotics under the care of the ID Service. Initial Zosyn apparently caused rash and he was switched to ceftriaxone with resolution. MRI did not show any osteomyelitis in his toe. He was therefore treated conservatively. An arteriogram with CO2 was undertaken showing bilateral PAD which unfortunately is not amenable to surgical intervention. The patient will follow up with ____ on an outpatient basis. DISCHARGE DATE: 06/12/2016. DISCHARGE EXAMINATION: Please refer to note from same date. DISCHARGE DISPOSITION: To home with services. DISCHARGE CONDITION: Improved. DISCHARGE DIAGNOSES: Toe cellulitis, sepsis. DISCHARGE MEDICATIONS: Please refer to transfer sheet. DISCHARGE INSTRUCTIONS: The patient will follow up with Infectious Disease in 10 days and see DrCon ____ from Vascular Services in 2-3 weeks. He will follow up with his primary care physician, Dr. Billie Blair in one week. DEBORAH ORNELAS MD DR: UR/nts JOB#: [id number] / [id number] BILLIE Demarco MD
== END 2016-06-12 17:35 | disposition home or self-care (01) | DRG 871 ==
LOC: ER 21:08 → 5 NORTH 23:36
PROVIDERS: ADMIT Internal Medicine; ATTEND Internal Medicine
PROC: B41D1ZZ Fluoroscopy of Aorta and Bilateral Lower Extremity Arteries using Low Osmolar Contrast (ICD-10-PCS; principal; 2016-06-11)
DX: A40.1 Sepsis due to streptococcus, group B (principal); N17.0 Acute kidney failure with tubular necrosis; K85.90 Acute pancreatitis without necrosis or infection, unspecified; L03.116 Cellulitis of left lower limb; E44.0 Moderate protein-calorie malnutrition; E87.1 Hypo-osmolality and hyponatremia; N18.4 Chronic kidney disease, stage 4 (severe); E66.9 Obesity, unspecified; E11.65 Type 2 diabetes mellitus with hyperglycemia; E11.621 Type 2 diabetes mellitus with foot ulcer; E78.5 Hyperlipidemia, unspecified; E83.42 Hypomagnesemia; E86.0 Dehydration; I70.201 Unspecified atherosclerosis of native arteries of extremities, right leg; L03.031 Cellulitis of right toe; L29.9 Pruritus, unspecified; L97.509 Non-pressure chronic ulcer of other part of unspecified foot with unspecified severity; L97.519 Non-pressure chronic ulcer of other part of right foot with unspecified severity; M10.9 Gout, unspecified; I12.9 Hypertensive chronic kidney disease with stage 1 through stage 4 chronic kidney disease, or unspecified chronic kidney disease; N31.2 Flaccid neuropathic bladder, not elsewhere classified; Z96.659 Presence of unspecified artificial knee joint; E03.9 Hypothyroidism, unspecified; E11.42 Type 2 diabetes mellitus with diabetic polyneuropathy; F41.9 Anxiety disorder, unspecified; M19.90 Unspecified osteoarthritis, unspecified site; D64.9 Anemia, unspecified; E11.51 Type 2 diabetes mellitus with diabetic peripheral angiopathy without gangrene; M54.5 Low back pain; R21 Rash and other nonspecific skin eruption; Z68.39 Body mass index [BMI] 39.0-39.9, adult; Z79.4 Long term (current) use of insulin; Z80.0 Family history of malignant neoplasm of digestive organs; Z80.3 Family history of malignant neoplasm of breast; Z83.3 Family history of diabetes mellitus; Z86.718 Personal history of other venous thrombosis and embolism; Z91.19 Patient's noncompliance with other medical treatment and regimen; Z88.7 Allergy status to serum and vaccine; Z88.8 Allergy status to other drugs, medicaments and biological substances
CPT/HCPCS: 36246; 36415; 71010; 73718; 74176; 75625; 75716; 75774; 76770; 76937; 80048; 80053; 80069; 81001; 82728; 82947; 83036; 83540; 83550; 83605; 83690; 83735; 84100; 85007; 85018; 85027; 85045; 85610; 86140; 87040; 87205; 87324; 87804; 93005; 93923; 96365; 96366; 96374; 96375; C1713; C1760; C1769; C1892; C1894; G0269; J0696; J0878; J1650; J1815; J2250; J2270; J2405; J2543; J3010; J3475; J7030; J7512; Q0163; Q9967; 97116; 97530; 97535; 99285-25